=== PATIENT | male | born 1945 | race Caucasian/White ===

== ENCOUNTER 2020-05-21 08:06 | Outpatient (REF) | payer MEDICARE, SELFPAY ==
[2020-05-21 11:22] LABS: Hemoglobin 15.7 g/dl (14.0-18.0); Mean Corpuscular HGB Conc 33.4 g/dl (31.0-36.0); Mean Corpuscular Hemoglobin 30.4 pg (27.0-33.0); Mean Corpuscular Volume 90.9 fL (80-98); Mean Platelet Volume 10.4 fL (9.4-12.4); Platelet Count 198 X10*3/uL (160-400); Red Blood Count 5.17 X10*6/uL (4.60-5.80); Red Cell Distribution Width 12.3 % (11.0-16.0); White Blood Count 5.5 X10*3/uL (4.8-10.8)
[2020-05-21 11:39] LABS: Alanine Aminotransferase 23 U/L (0-40); Albumin Level 4.6 g/dL (3.5-5.0); Alkaline Phosphatase 70 U/L (39-117); Anion Gap 13 (12-20); Aspartate Amino Transferase 19 U/L (5-37); Bilirubin Total 0.4 mg/dL (0.0-1.0); Blood Urea Nitrogen 25 mg/dL (9-16); Calcium 9.3 mg/dL (8.4-10.2); Carbon Dioxide 29 mmol/L (22-29); Chloride 106 mmol/L (96-108); Estimated Glomerular Filt Rate 45; Glucose Fasting 84 mg/dL (60-99); Potassium 4.4 mmol/l (3.3-5.1); Sodium 144 mmol/L (135-145); Total Protein 7.6 g/dL (6.5-8.0)
[2020-05-21 11:53] LABS: Estimated Average Glucose 108 mg/dL; Hemoglobin A1c % 5.4 %
[2020-05-21 12:32] LABS: Creatinine Urine 186.73 mg/dL; Microalbum/Creatinine Ratio Ur 7.4 ug/mg cr
== END 2020-05-21 08:07 | disposition home or self-care (01) ==
LOC: HO.HMGCLDS 08:06
PROVIDERS: PCP Internal Medicine; Visit Provider Internal Medicine
DX: M54.32 Sciatica, left side (principal); E78.2 Mixed hyperlipidemia; E11.9 Type 2 diabetes mellitus without complications
CPT/HCPCS: 36415; 80053; 82043; 83036; 85027

== ENCOUNTER 2020-09-10 10:25 | Emergency (ER) | payer MEDICARE, OTHER, SELFPAY ==
--- NOTE | ~2020-09-10 | XR_ITS ---
EXAMINATION: XR CHEST CLINICAL INFORMATION: Fever COMPARISON: None TECHNIQUE: Frontal view of the chest was obtained. FINDINGS: The cardiac and mediastinal contours are normal. There is increased density over the left heart border questionable for a left base atelectasis or small pneumonia. The lungs are otherwise clear. There is no pleural effusion or pneumothorax. There are degenerative changes of the spine. XR/XR chest 1V IMPRESSION: Question atelectasis or small infiltrate at the left lung base.
[2020-09-10 10:33] VITALS: BP 126/64; PULSE 93; RESP 18; TEMP 36.6; O2SAT 97; BMI 27.5
--- NOTE | 2020-09-10 10:38 | ED.GENADULT ---
HPI - General Adult General Chief complaint: General Medical Stated complaint: fever, body aches Time Seen by Provider: 09/10/20 10:38 Source: patient Mode of arrival: ambulatory Limitations: no limitations History of Present Illness HPI narrative: 74 yo male with CKD, DM, HTN here with fatigue, malaise 1 week ago following his second Moderna vaccine - had a fever of 102 last night and responded to tylenol complaint: fevers, fatigue Onset (ago): week(s) (1) Severity: mild Quality: dull Pain Consistency: constant Relieving factors: none Exacerbating factors: none Associated symptoms: fever/chills and malaise Treatments prior to arrival: none Related Data Home Medications Medication Instructions Recorded Confirmed flu vacc (67yr ml IM 05/24/20 05/24/20 up)-MF59C(PF) 60 mcg(15 mcgx4)/0.5 mL IM syringe omeprazole 20 mg capsule,delayed 20 mg PO DAILY 05/24/20 05/24/20 release pneumoc 13-yogesh conj-dip cr(PF) 0.5 ml IM 05/24/20 05/24/20 mL IM syringe simvastatin 20 mg tablet 20 mg PO BEDTIME 05/24/20 05/24/20 Previous Rx's Medication Instructions Recorded glipizide 2.5 mg tablet, extended 2.5 mg PO DAILY #90 tab 04/10/20 release 24 hr omeprazole 20 mg tablet,delayed 20 mg PO DAILY #90 tab 05/07/20 release lisinopril 10 mg tablet 10 mg PO DAILY #90 tab 05/24/20 blood sugar diagnostic #50 ea 07/22/20 amlodipine 10 mg tablet 10 mg PO DAILY #90 tab 08/05/20 metformin 500 mg tablet 500 mg PO BID #180 tab 08/19/20 doxycycline hyclate 100 mg PO BID 7 Days #14 cap 09/10/20 Allergies Allergy/AdvReac Type Severity Reaction Status Date / Time No Known Allergies Allergy Verified 09/10/20 10:37 [No Known Allergies*] Review of Systems Review of Systems: Constitutional : No Weight loss, pos Fever, pos Chills, pos Fatigue, pos Malaise ENT/Mouth : No sore throat, No Rhinorrhea Eyes: No Eye Pain, No Swelling, No Redness Cardiovascular : No Chest Pain, No SOB, No Dyspnea on Exertion, No Orthopnea, No Edema, No Palpitations Respiratory : No Cough, No Sputum, No Wheezing Gastrointestinal : No Nausea, No Vomiting, No Diarrhea, No Constipation, No abdominal Pain, No Hematochezia, No Melena Genitourinary : No Dysuria, No Urinary Frequency, No Hematuria, pos darkened urine Musculoskeletal : No joint pain, No Myalgias, No Joint Swelling Skin : No Skin Lesions, No rash Neuro : No Weakness, No Numbness, No Dizziness, No Headache Psych : No Anxiety/Panic, No Depression Heme/Lymph: No Bruising, No Bleeding,No Lymphadenopathy Endocrine : No Polyuria, No Polydipsia All other systems reviewed and are negative FOR[facility]LY [facility] Past Medical History Medical History CKD (chronic kidney disease) stage 3, GFR 30-59 ml/min HTN (hypertension) Hyperlipidemia Overweight Renal mass Type 2 diabetes mellitus Surgical History H/O colonoscopy Social History Social History Alcohol intake: current Alcohol intake frequency: a few times a week Smoking Status: Never smoker Use of substances other than those prescribed or required for medical reasons: No Advance Directives: No Advance Directives Information Provided: No Physical Exam Vital Signs: Vital Signs: Last Vital Signs Temp 98.3 F 09/10/20 12:13 Pulse 92 09/10/20 12:13 Resp 18 09/10/20 12:13 BP 131/60 09/10/20 12:13 Pulse Ox 97 09/10/20 12:13 Body Mass Index 27.5 Appearance: Alert. Oriented X3. No acute distress. Eyes: Pupils equal, round and reactive to light. ENT: Pharynx normal. Neck: Normal inspection. Neck supple. CVS: Normal heart rate and rhythm. Pulses normal. Respiratory: No respiratory distress. Breath sounds normal. Abdomen: Soft and nontender. Skin: Skin warm and dry. Normal skin color. Normal skin turgor. Extremities: No lower extremity edema. No calf ttp Neuro: Oriented X 3. No motor deficit. No sensory deficit. Course Course Course Narrative: negative for COVID no hypoxia not toxic will start on doxy and ask patient to follow up with PCP Medical Decision Making MDM Narrative Medical decision making narrative: 74 yo male 1 week out 2nd moderna vaccine here with fatigue, dark urine, fevers 102 - denies tick bites, cough, rash, abdominal pain, n/v/d - at this time labs, cultures, CXR, COVID swab ordered, dispo per results and findings. not toxic Lab Data Result diagrams: 09/10/20 12:22 09/10/20 12:22 Labs: Lab Results 09/10/20 09/10/20 09/10/20 Range/Units 12:21 12:22 12:22 WBC 6.5 (4.8-10.8) X10*3/uL RBC 4.62 (4.60-5.80) X10*6/uL Hgb 13.7 L (14.0-18.0) g/dl Hct 40.5 L (42-52) % MCV 87.7 (80-98) fL MCH 29.7 (27.0-33.0) pg MCHC 33.8 (31.0-36.0) g/dl RDW 12.2 (11.0-16.0) % Plt Count 248 D (160-400) X10*3/uL MPV 9.1 L (9.4-12.4) fL Immature Gran % (Auto) 1.2 H (0.0-0.4) % Neut % (Auto) 78.4 H (45-73) % Lymph % (Auto) 10.7 L (20-40) % Gregory % (Auto) 9.2 (2-11) % Eos % (Auto) 0.2 (0-4) % Baso % (Auto) 0.3 (0-2) % Lymph # (Auto) 0.7 L (1.2-4.9) X10*3/uL Gregory # (Auto) 0.6 (0.1-1.2) X10*3/uL Eos # (Auto) 0.0 (0.0-0.4) X10*3/uL Baso # (Auto) 0.0 (0.0-0.2) X10*3/uL Abs Immat Gran (auto) 0.08 H (0.00-0.03) X10*3/uL Absolute Neuts (auto) 5.1 (2.0-8.3) X10*3/uL Absolute Nucleated RBC 0.000 (0.0-0.012) X10*3/uL Nucleated RBC % (auto) 0.0 (0.0-0.2) /100WBC Hold Blue Top SEE NOTE Sodium (135-145) mmol/L Potassium (3.3-5.1) mmol/L Chloride (96-108) mmol/L Carbon Dioxide (22-29) mmol/L Anion Gap (12-20) BUN (9-16) mg/dL Creatinine (0.5-1.4) mg/dL Estim Creat Clear Calc Estimated GFR Random Glucose (60-115) mg/dL Lactic Acid (0.5-2.0) mmol/L Calcium (8.4-10.2) mg/dL Magnesium (1.6-2.6) mg/dL Ferritin (20-250) ng/mL Total Bilirubin (0.0-1.0) mg/dL Direct Bilirubin (0.0-0.5) mg/dL AST (5-37) U/L ALT (0-40) U/L Alkaline Phosphatase (39-117) U/L Lactate Dehydrogenase (118-273) U/L Total Creatine Kinase (38-174) U/L Total Protein (6.5-8.0) g/dL Albumin (3.5-5.0) g/dL Urine Color Urine Appearance Urine pH (5.0-8.0) Ur Specific [place] (1.005-1.025) Urine Protein (NEG-TRACE) MG/DL Urine Glucose (UA) (NEG) MG/DL Urine Ketones (NEG) MG/DL Urine Blood (NEG) Urine Nitrite (NEG) Ur Leukocyte Esterase (NEG) Coronavirus (PCR) NEGATIVE (Negative) Influenza Type A (PCR) NEGATIVE (Negative) Influenza Type B (PCR) NEGATIVE (Negative) RSV RNA Qual (PCR) NEGATIVE (Negative) 09/10/20 09/10/20 09/10/20 Range/Units 12:22 12:22 12:22 WBC (4.8-10.8) X10*3/uL RBC (4.60-5.80) X10*6/uL Hgb (14.0-18.0) g/dl Hct (42-52) % MCV (80-98) fL MCH (27.0-33.0) pg MCHC (31.0-36.0) g/dl RDW (11.0-16.0) % Plt Count (160-400) X10*3/uL MPV (9.4-12.4) fL Immature Gran % (Auto) (0.0-0.4) % Neut % (Auto) (45-73) % Lymph % (Auto) (20-40) % Gregory % (Auto) (2-11) % Eos % (Auto) (0-4) % Baso % (Auto) (0-2) % Lymph # (Auto) (1.2-4.9) X10*3/uL Gregory # (Auto) (0.1-1.2) X10*3/uL Eos # (Auto) (0.0-0.4) X10*3/uL Baso # (Auto) (0.0-0.2) X10*3/uL Abs Immat Gran (auto) (0.00-0.03) X10*3/uL Absolute Neuts (auto) (2.0-8.3) X10*3/uL Absolute Nucleated RBC (0.0-0.012) X10*3/uL Nucleated RBC % (auto) (0.0-0.2) /100WBC Hold Blue Top Sodium 135 (135-145) mmol/L Potassium 4.2 (3.3-5.1) mmol/L Chloride 100 (96-108) mmol/L Carbon Dioxide 25 (22-29) mmol/L Anion Gap 14 (12-20) BUN 24 H (9-16) mg/dL Creatinine 1.70 H (0.5-1.4) mg/dL Estim Creat Clear Calc 46.9 Estimated GFR 40 Random Glucose 233 H (60-115) mg/dL Lactic Acid 1.6 (0.5-2.0) mmol/L Calcium 8.7 D (8.4-10.2) mg/dL Magnesium 1.9 (1.6-2.6) mg/dL Ferritin 1480 H (20-250) ng/mL Total Bilirubin 0.8 (0.0-1.0) mg/dL Direct Bilirubin 0.4 (0.0-0.5) mg/dL AST 55 H (5-37) U/L ALT 84 H (0-40) U/L Alkaline Phosphatase 117 D (39-117) U/L Lactate Dehydrogenase 107 L (118-273) U/L Total Creatine Kinase 111 (38-174) U/L Total Protein 7.0 (6.5-8.0) g/dL Albumin 3.9 (3.5-5.0) g/dL Urine Color Urine Appearance Urine pH (5.0-8.0) Ur Specific [place] (1.005-1.025) Urine Protein (NEG-TRACE) MG/DL Urine Glucose (UA) (NEG) MG/DL Urine Ketones (NEG) MG/DL Urine Blood (NEG) Urine Nitrite (NEG) Ur Leukocyte Esterase (NEG) Coronavirus (PCR) (Negative) Influenza Type A (PCR) (Negative) Influenza Type B (PCR) (Negative) RSV RNA Qual (PCR) (Negative) 09/10/20 Range/Units 12:22 WBC (4.8-10.8) X10*3/uL RBC (4.60-5.80) X10*6/uL Hgb (14.0-18.0) g/dl Hct (42-52) % MCV (80-98) fL MCH (27.0-33.0) pg MCHC (31.0-36.0) g/dl RDW (11.0-16.0) % Plt Count (160-400) X10*3/uL MPV (9.4-12.4) fL Immature Gran % (Auto) (0.0-0.4) % Neut % (Auto) (45-73) % Lymph % (Auto) (20-40) % Gregory % (Auto) (2-11) % Eos % (Auto) (0-4) % Baso % (Auto) (0-2) % Lymph # (Auto) (1.2-4.9) X10*3/uL Gregory # (Auto) (0.1-1.2) X10*3/uL Eos # (Auto) (0.0-0.4) X10*3/uL Baso # (Auto) (0.0-0.2) X10*3/uL Abs Immat Gran (auto) (0.00-0.03) X10*3/uL Absolute Neuts (auto) (2.0-8.3) X10*3/uL Absolute Nucleated RBC (0.0-0.012) X10*3/uL Nucleated RBC % (auto) (0.0-0.2) /100WBC Hold Blue Top Sodium (135-145) mmol/L Potassium (3.3-5.1) mmol/L Chloride (96-108) mmol/L Carbon Dioxide (22-29) mmol/L Anion Gap (12-20) BUN (9-16) mg/dL Creatinine (0.5-1.4) mg/dL Estim Creat Clear Calc Estimated GFR Random Glucose (60-115) mg/dL Lactic Acid (0.5-2.0) mmol/L Calcium (8.4-10.2) mg/dL Magnesium (1.6-2.6) mg/dL Ferritin (20-250) ng/mL Total Bilirubin (0.0-1.0) mg/dL Direct Bilirubin (0.0-0.5) mg/dL AST (5-37) U/L ALT (0-40) U/L Alkaline Phosphatase (39-117) U/L Lactate Dehydrogenase (118-273) U/L Total Creatine Kinase (38-174) U/L Total Protein (6.5-8.0) g/dL Albumin (3.5-5.0) g/dL Urine Color YELLOW Urine Appearance CLEAR Urine pH 5.5 (5.0-8.0) Ur Specific [place] 1.025 (1.005-1.025) Urine Protein TRACE (NEG-TRACE) MG/DL Urine Glucose (UA) NEG (NEG) MG/DL Urine Ketones NEG (NEG) MG/DL Urine Blood NEG (NEG) Urine Nitrite NEG (NEG) Ur Leukocyte Esterase NEG (NEG) Coronavirus (PCR) (Negative) Influenza Type A (PCR) (Negative) Influenza Type B (PCR) (Negative) RSV RNA Qual (PCR) (Negative) Discharge Plan Discharge Clinical Impression: CKD (chronic kidney disease) stage 3, GFR 30-59 ml/min Qualifiers: Chronic kidney disease stage 3 subtype: unspecified whether 3a or 3b Qualified Code(s): N18.30 - Chronic kidney disease, stage 3 unspecified Pneumonia Qualifiers: Pneumonia type: due to unspecified organism Laterality: left Lung location: lower lobe of lung Qualified Code(s): J18.9 - Pneumonia, unspecified organism Patient Disposition: Home, Self-Care Instructions: Pneumonia (ED) Additional Instructions: return to ED for any worsening symptoms or concerns YOU SHOULD HAVE YOUR KIDNEY FUNCTION RECHECKED IN 2 DAYS Prescriptions: New doxycycline hyclate 100 mg capsule 100 mg PO BID 7 Days Qty: 14 RF: 0 No Action glipizide 2.5 mg tablet extended release 24hr 2.5 mg PO DAILY Qty: 90 RF: 2 omeprazole 20 mg tablet,delayed release (DR/EC) 20 mg PO DAILY Qty: 90 RF: 3 lisinopril 10 mg tablet 10 mg PO DAILY Qty: 90 RF: 3 (DME) Accu-Chek Maris Plus test strp Strip See Rx Instructions .ROUTE .MEDSUPPLY Qty: 50 RF: 2 amlodipine 10 mg tablet 10 mg PO DAILY Qty: 90 RF: 3 metformin 500 mg tablet 500 mg PO BID Qty: 180 RF: 3 simvastatin 20 mg tablet 20 mg PO BEDTIME RF: 0 omeprazole 20 mg capsule,delayed release(DR/EC) 20 mg PO DAILY RF: 0 Fluad Quad 2020-21(65y up)(PF) 60 mcg (15 mcg x 4)/0.5 mL syringe IM RF: 0 Prevnar 13 (PF) 0.5 mL syringe IM RF: 0 Referrals: Renetta Rangel MD [Primary Care Provider] - 2 days
[2020-09-10 12:13] VITALS: BP 131/60; PULSE 92; RESP 18; TEMP 36.8; O2SAT 97
[2020-09-10 12:29] LABS: MANUAL DIFF FLAG NO
[2020-09-10 12:33] LABS: Basophils Percent Auto 0.3 % (0-2); Eosinophils Percent Auto 0.2 % (0-4); Hematocrit 40.5 % (42-52); Hemoglobin 13.7 g/dl (14.0-18.0); Imm Gran Abs Auto 0.08 X10*3/uL (0.00-0.03); Imm Gran Pct Auto 1.2 % (0.0-0.4); Lymphocytes Absolute Auto 0.7 X10*3/uL (1.2-4.9); Lymphocytes Percent Auto 10.7 % (20-40); Mean Corpuscular HGB Conc 33.8 g/dl (31.0-36.0); Mean Corpuscular Hemoglobin 29.7 pg (27.0-33.0); Mean Corpuscular Volume 87.7 fL (80-98); Mean Platelet Volume 9.1 fL (9.4-12.4); Monocytes Absolute Auto 0.6 X10*3/uL (0.1-1.2); Monocytes Percent Auto 9.2 % (2-11); Neutrophils Absolute Auto 5.1 X10*3/uL (2.0-8.3); Neutrophils Percent Auto 78.4 % (45-73); Platelet Count 248 X10*3/uL (160-400); Red Blood Count 4.62 X10*6/uL (4.60-5.80); Red Cell Distribution Width 12.2 % (11.0-16.0); White Blood Count 6.5 X10*3/uL (4.8-10.8)
[2020-09-10] MEDS: cefTRIAXone sodium 1 GM in 0.9 % Sodium Chloride 50 ML IV (12:46)
[2020-09-10 12:56] LABS: Glucose Urine UA NEG (NEG); Leukocyte Esterase Urine NEG (NEG); Nitrite Urine NEG (NEG); PH 5.5 (5.0-8.0); Specific Gravity - Urine 1.025 (1.005-1.025); Urine Blood NEG (NEG); Urine Ketones NEG (NEG); Urine Protein TRACE MG/DL (NEG-TRACE)
[2020-09-10 12:59] LABS: Alanine Aminotransferase 84 U/L (0-40); Albumin Level 3.9 g/dL (3.5-5.0); Alkaline Phosphatase 117 U/L (39-117); Anion Gap 14 (12-20); Appearance Urine CLEAR; Aspartate Amino Transferase 55 U/L (5-37); Bilirubin Direct 0.4 mg/dL (0.0-0.5); Bilirubin Total 0.8 mg/dL (0.0-1.0); Blood Urea Nitrogen 24 mg/dL (9-16); Calcium 8.7 mg/dL (8.4-10.2); Carbon Dioxide 25 mmol/L (22-29); Chloride 100 mmol/L (96-108); Color Urine YELLOW; Creatinine Clr Calc Pharmacy 46.9; Estimated Glomerular Filt Rate 40; Glucose Random 233 mg/dL (60-115); Lactate Dehydrogenase 107 U/L (118-273); Magnesium 1.9 mg/dL (1.6-2.6); Potassium 4.2 mmol/L (3.3-5.1); Sodium 135 mmol/L (135-145)
[2020-09-10 13:06] LABS: Lactic Acid 1.6 mmol/L (0.5-2.0)
[2020-09-10] MEDS: 0.9 % Sodium Chloride 500 ML IV (13:36)
[2020-09-10 13:46] LABS: Ferritin 1480 ng/mL (20-250)
[2020-09-10 14:03] LABS: Influenza A PCR NEGATIVE (Negative); Influenza B PCR NEGATIVE (Negative); Resp Syncy Virus RNA Qual PCR NEGATIVE (Negative); SARS COV2 PCR INHOUSE NEGATIVE (Negative)
[2020-09-12 17:26] LABS: Lyme Abs Screen <0.90 index
== END 2020-09-10 15:07 | disposition home or self-care (01) ==
PROVIDERS: Emergency Provider Emergency Medicine; PCP Internal Medicine
DX: J18.9 Pneumonia, unspecified organism (principal); E11.22 Type 2 diabetes mellitus with diabetic chronic kidney disease; I12.9 Hypertensive chronic kidney disease with stage 1 through stage 4 chronic kidney disease, or unspecified chronic kidney disease; N18.30 Chronic kidney disease, stage 3 unspecified; Z20.822 Contact with and (suspected) exposure to COVID-19; E78.5 Hyperlipidemia, unspecified; Z87.01 Personal history of pneumonia (recurrent)
CPT/HCPCS: 0241U; 36415; 71045; 80048; 80076; 81003; 82550; 82728; 83605; 83615; 83735; 85025; 86617; 86618; 87040; 87147; 87205; 96361; 96365; 99284; J0696

== ENCOUNTER 2020-09-13 07:56 | Outpatient (REF) | payer MEDICARE, OTHER, SELFPAY ==
[2020-09-13 11:55] LABS: Anion Gap 16 (12-20); Blood Urea Nitrogen 26 mg/dL (9-16); Calcium 8.8 mg/dL (8.4-10.2); Carbon Dioxide 24 mmol/L (22-29); Chloride 105 mmol/L (96-108); Cholesterol 120 mg/dL; Estimated Glomerular Filt Rate 48; Glucose Fasting 121 mg/dL (60-99); HDL Cholesterol 28 mg/dL; LDL Cholesterol Calculated 69 mg/dl; Potassium 4.6 mmol/L (3.3-5.1); Sodium 140 mmol/L (135-145); Triglycerides 118 mg/dL
[2020-09-13 11:59] LABS: Estimated Average Glucose 128 mg/dL; Hemoglobin A1c % 6.1 %
== END 2020-09-13 07:57 | disposition home or self-care (01) ==
LOC: HO.HMGCLDS 07:56
PROVIDERS: Visit Provider Internal Medicine
DX: I12.9 Hypertensive chronic kidney disease with stage 1 through stage 4 chronic kidney disease, or unspecified chronic kidney disease (principal); N18.30 Chronic kidney disease, stage 3 unspecified; E11.22 Type 2 diabetes mellitus with diabetic chronic kidney disease; N28.89 Other specified disorders of kidney and ureter
CPT/HCPCS: 36415; 80048; 80061; 83036

== ENCOUNTER 2021-01-06 10:05 | Outpatient (REF) | payer MEDICARE, OTHER, SELFPAY ==
[2021-01-06 11:29] LABS: Glucose Urine UA NEG (NEG); Leukocyte Esterase Urine NEG (NEG); Nitrite Urine NEG (NEG); PH 5.5 (5.0-8.0); Specific Gravity - Urine 1.025 (1.005-1.025); Urine Blood NEG (NEG); Urine Ketones NEG (NEG); Urine Protein NEG (NEG-TRACE)
[2021-01-06 11:38] LABS: Appearance Urine CLEAR; Color Urine YELLOW
[2021-01-06 11:44] LABS: Alanine Aminotransferase 19 U/L (0-40); Albumin Level 4.3 g/dL (3.5-5.0); Alkaline Phosphatase 64 U/L (39-117); Anion Gap 16 (12-20); Aspartate Amino Transferase 20 U/L (5-37); Bilirubin Total 0.6 mg/dL (0.0-1.0); Blood Urea Nitrogen 23 mg/dL (9-16); Calcium 9.6 mg/dL (8.4-10.2); Carbon Dioxide 24 mmol/L (22-29); Chloride 106 mmol/L (96-108); Estimated Glomerular Filt Rate 48; Glucose Fasting 135 mg/dL (60-99); Potassium 4.5 mmol/L (3.3-5.1); Sodium 141 mmol/L (135-145); Total Protein 7.2 g/dL (6.5-8.0)
[2021-01-06 11:53] LABS: Estimated Average Glucose 134 mg/dL; Hemoglobin A1c % 6.3 %
[2021-01-06 11:55] LABS: Hematocrit 43.7 % (42-52); Hemoglobin 14.8 g/dl (14.0-18.0); Mean Corpuscular HGB Conc 33.9 g/dl (31.0-36.0); Mean Corpuscular Hemoglobin 29.8 pg (27.0-33.0); Mean Corpuscular Volume 88.1 fL (80-98); Mean Platelet Volume 9.6 fL (9.4-12.4); Platelet Count 171 X10*3/uL (160-400); Red Blood Count 4.96 X10*6/uL (4.60-5.80); Red Cell Distribution Width 12.7 % (11.0-16.0); White Blood Count 5.8 X10*3/uL (4.8-10.8)
[2021-01-06 12:54] LABS: Mucus Urine 1+ /LPF; RBC Urine 0 /HPF (0); WBC Urine 0 /HPF (0-4)
[2021-01-06 12:58] LABS: Creatinine Urine 122.76 mg/dL; Microalbum/Creatinine Ratio Ur 7.3 ug/mg cr
== END 2021-01-06 10:06 | disposition home or self-care (01) ==
LOC: HO.HMGCLDS 10:05
PROVIDERS: PCP Internal Medicine; Visit Provider Internal Medicine
DX: I12.9 Hypertensive chronic kidney disease with stage 1 through stage 4 chronic kidney disease, or unspecified chronic kidney disease (principal); N18.30 Chronic kidney disease, stage 3 unspecified; E11.22 Type 2 diabetes mellitus with diabetic chronic kidney disease
CPT/HCPCS: 36415; 80053; 81001; 82043; 83036; 85027

== ENCOUNTER 2021-05-12 08:09 | Outpatient (REF) | payer MEDICARE, OTHER, SELFPAY ==
[2021-05-12 11:48] LABS: Hematocrit 43.4 % (42.0-52.0); Hemoglobin 14.7 g/dl (14.0-18.0); Mean Corpuscular HGB Conc 33.9 g/dl (31.0-36.0); Mean Corpuscular Hemoglobin 29.9 pg (27.0-33.0); Mean Corpuscular Volume 88.2 fL (80.0-98.0); Mean Platelet Volume 9.8 fL (9.4-12.4); Platelet Count 197 X10*3/uL (160-400); Red Blood Count 4.92 X10*6/uL (4.60-5.80); Red Cell Distribution Width 12.7 % (11.0-16.0); White Blood Count 5.9 X10*3/uL (4.8-10.8)
[2021-05-12 12:05] LABS: Estimated Average Glucose 131 mg/dL; Hemoglobin A1c % 6.2 %
[2021-05-12 12:09] LABS: Alanine Aminotransferase 26 U/L (0-40); Albumin Level 4.4 g/dL (3.5-5.0); Alkaline Phosphatase 61 U/L (39-117); Anion Gap 15 (12-20); Aspartate Amino Transferase 33 U/L (5-37); Bilirubin Total 0.7 mg/dL (0.0-1.0); Blood Urea Nitrogen 31 mg/dL (9-16); Calcium 9.5 mg/dL (8.4-10.2); Carbon Dioxide 23 mmol/L (22-29); Chloride 108 mmol/L (96-108); Cholesterol 169 mg/dL; Estimated Glomerular Filt Rate 35; Glucose Fasting 135 mg/dL (60-99); HDL Cholesterol 46 mg/dL; LDL Cholesterol Calculated 97 mg/dl; Potassium 4.5 mmol/L (3.3-5.1); Sodium 141 mmol/L (135-145); Total Protein 7.2 g/dL (6.5-8.0); Triglycerides 131 mg/dL
[2021-05-12 12:15] LABS: Creatinine Urine 198.58 mg/dL
== END 2021-05-12 08:10 | disposition home or self-care (01) ==
LOC: HO.HMGCLDS 08:09
PROVIDERS: PCP Internal Medicine; Visit Provider Internal Medicine
DX: I12.9 Hypertensive chronic kidney disease with stage 1 through stage 4 chronic kidney disease, or unspecified chronic kidney disease (principal); N18.30 Chronic kidney disease, stage 3 unspecified; E11.22 Type 2 diabetes mellitus with diabetic chronic kidney disease; N28.89 Other specified disorders of kidney and ureter
CPT/HCPCS: 36415; 80053; 80061; 82043; 83036; 85027

== ENCOUNTER 2021-05-23 11:22 | Outpatient (REF) | payer MEDICARE, OTHER, SELFPAY ==
[2021-05-23 14:37] LABS: Anion Gap 13 (12-20); Blood Urea Nitrogen 24 mg/dL (9-16); Calcium 9.6 mg/dL (8.4-10.2); Carbon Dioxide 27 mmol/L (22-29); Chloride 103 mmol/L (96-108); Estimated Glomerular Filt Rate 45; Glucose Random 108 mg/dL (60-115); Potassium 4.6 mmol/L (3.3-5.1); Sodium 138 mmol/L (135-145)
== END 2021-05-23 11:23 | disposition home or self-care (01) ==
LOC: HO.HMGCLDS 11:22
PROVIDERS: PCP Internal Medicine; Visit Provider Internal Medicine
DX: E78.5 Hyperlipidemia, unspecified (principal); I12.9 Hypertensive chronic kidney disease with stage 1 through stage 4 chronic kidney disease, or unspecified chronic kidney disease; N18.30 Chronic kidney disease, stage 3 unspecified; E11.22 Type 2 diabetes mellitus with diabetic chronic kidney disease
CPT/HCPCS: 36415; 80048

== ENCOUNTER 2022-01-06 08:04 | Outpatient (REF) | payer MEDICARE, OTHER, SELFPAY ==
[2022-01-06 11:37] LABS: Estimated Average Glucose 128 mg/dL; Hemoglobin A1c % 6.1 %
[2022-01-06 12:09] LABS: Alanine Aminotransferase 18 U/L (0-40); Albumin Level 4.2 g/dL (3.5-5.0); Alkaline Phosphatase 59 U/L (39-117); Anion Gap 15 (12-20); Aspartate Amino Transferase 21 U/L (5-37); Bilirubin Total 0.8 mg/dL (0.0-1.0); Blood Urea Nitrogen 26 mg/dL (9-16); Calcium 9.1 mg/dL (8.4-10.2); Carbon Dioxide 25 mmol/L (22-29); Chloride 103 mmol/L (96-108); Cholesterol 150 mg/dL; Estimated Glomerular Filt Rate 44; Glucose Fasting 145 mg/dL (60-99); HDL Cholesterol 47 mg/dL; LDL Cholesterol Calculated 87 mg/dl; Potassium 4.6 mmol/L (3.3-5.1); Sodium 138 mmol/L (135-145); Total Protein 6.8 g/dL (6.5-8.0); Triglycerides 82 mg/dL
[2022-01-06 12:22] LABS: Creatinine Urine 92.07 mg/dL; Microalbum/Creatinine Ratio Ur 11.9 ug/mg cr
== END 2022-01-06 08:05 | disposition home or self-care (01) ==
LOC: HO.HMGCLDS 08:04
PROVIDERS: PCP Internal Medicine; Visit Provider Internal Medicine
DX: I12.9 Hypertensive chronic kidney disease with stage 1 through stage 4 chronic kidney disease, or unspecified chronic kidney disease (principal); N18.30 Chronic kidney disease, stage 3 unspecified; E11.22 Type 2 diabetes mellitus with diabetic chronic kidney disease; E78.5 Hyperlipidemia, unspecified
CPT/HCPCS: 36415; 80053; 80061; 82043; 83036

== ENCOUNTER 2022-06-11 10:54 | Outpatient (REF) | payer MEDICARE, OTHER, SELFPAY ==
[2022-06-11 14:38] LABS: Estimated Average Glucose 143 mg/dL; Hemoglobin A1c % 6.6 %
[2022-06-11 14:45] LABS: Alanine Aminotransferase 19 U/L (0-40); Albumin Level 4.3 g/dL (3.5-5.0); Alkaline Phosphatase 78 U/L (39-117); Anion Gap 14 (12-20); Aspartate Amino Transferase 18 U/L (5-37); Bilirubin Total 0.7 mg/dL (0.0-1.0); Blood Urea Nitrogen 29 mg/dL (9-16); Calcium 9.4 mg/dL (8.4-10.2); Carbon Dioxide 26 mmol/L (22-29); Chloride 104 mmol/L (96-108); Cholesterol 159 mg/dL; Estimated Glomerular Filt Rate 39; Glucose Fasting 123 mg/dL (60-99); HDL Cholesterol 45 mg/dL; LDL Cholesterol Calculated 95 mg/dl; Potassium 4.7 mmol/L (3.3-5.1); Sodium 139 mmol/L (135-145); Triglycerides 99 mg/dL
[2022-06-11 14:51] LABS: PSA,Total (Free>4and<10) 1.17 ng/mL (0.00-4.00)
[2022-06-11 15:04] LABS: Creatinine Urine 128.34 mg/dL
== END 2022-06-11 10:55 | disposition home or self-care (01) ==
LOC: HO.HMGCLDS 10:54
PROVIDERS: PCP Internal Medicine; Visit Provider Internal Medicine
DX: E78.5 Hyperlipidemia, unspecified (principal); I12.9 Hypertensive chronic kidney disease with stage 1 through stage 4 chronic kidney disease, or unspecified chronic kidney disease; E11.22 Type 2 diabetes mellitus with diabetic chronic kidney disease; N18.30 Chronic kidney disease, stage 3 unspecified; Z12.5 Encounter for screening for malignant neoplasm of prostate
CPT/HCPCS: 36415; 80053; 80061; 82043; 83036; 84153

== ENCOUNTER 2022-09-08 09:14 | Outpatient (REF) | payer MEDICARE, OTHER, SELFPAY ==
[2022-09-08 11:39] LABS: MANUAL DIFF FLAG NO
[2022-09-08 11:55] LABS: Basophils Percent Auto 0.6 % (0-2); Eosinophils Absolute Auto 0.1 X10*3/uL (0.0-0.4); Hematocrit 46.2 % (42.0-52.0); Hemoglobin 15.7 g/dl (14.0-18.0); Imm Gran Abs Auto 0.03 X10*3/uL (0.00-0.03); Imm Gran Pct Auto 0.5 % (0.0-0.4); Lymphocytes Absolute Auto 1.4 X10*3/uL (1.2-4.9); Lymphocytes Percent Auto 22.9 % (20-40); Mean Corpuscular Hemoglobin 30.3 pg (27.0-33.0); Mean Corpuscular Volume 89.2 fL (80.0-98.0); Mean Platelet Volume 10.3 fL (9.4-12.4); Monocytes Absolute Auto 0.5 X10*3/uL (0.1-1.2); Monocytes Percent Auto 8.1 % (2-11); Neutrophils Absolute Auto 4.2 x10*3/uL (2.0-8.3); Neutrophils Percent Auto 66.9 % (45-73); Platelet Count 194 X10*3/uL (160-400); Red Blood Count 5.18 X10*6/uL (4.60-5.80); Red Cell Distribution Width 12.4 % (11.0-16.0); White Blood Count 6.3 X10*3/uL (4.8-10.8)
[2022-09-08 12:16] LABS: Alanine Aminotransferase 18 U/L (0-40); Albumin Level 4.3 g/dL (3.5-5.0); Alkaline Phosphatase 75 U/L (39-117); Anion Gap 13 (12-20); Aspartate Amino Transferase 16 U/L (5-37); Bilirubin Total 1.2 mg/dL (0.0-1.0); Blood Urea Nitrogen 25 mg/dL (9-16); Calcium 9.3 mg/dL (8.4-10.2); Carbon Dioxide 26 mmol/L (22-29); Chloride 104 mmol/L (96-108); Cholesterol 168 mg/dL; Estimated Glomerular Filt Rate 43; Glucose Fasting 141 mg/dL (60-99); HDL Cholesterol 44 mg/dL; LDL Cholesterol Calculated 104 mg/dl; Potassium 4.1 mmol/L (3.3-5.1); Sodium 139 mmol/L (135-145); Total Protein 6.9 g/dL (6.5-8.0); Triglycerides 103 mg/dL
[2022-09-08 12:17] LABS: Estimated Average Glucose 157 mg/dL; Hemoglobin A1c % 7.1 %
[2022-09-08 12:35] LABS: Creatinine Urine 140.39 mg/dL; Microalbum/Creatinine Ratio Ur 19.2 ug/mg cr
== END 2022-09-08 09:15 | disposition home or self-care (01) ==
LOC: HO.HMGCLDS 09:14
PROVIDERS: PCP Internal Medicine; Referring Provider Internal Medicine Nephrology; Visit Provider Internal Medicine
DX: E78.5 Hyperlipidemia, unspecified (principal); E11.22 Type 2 diabetes mellitus with diabetic chronic kidney disease; I12.9 Hypertensive chronic kidney disease with stage 1 through stage 4 chronic kidney disease, or unspecified chronic kidney disease; N18.30 Chronic kidney disease, stage 3 unspecified
CPT/HCPCS: 36415; 80053; 80061; 82043; 83036; 85025

== ENCOUNTER 2022-09-21 10:12 | Outpatient (REF) | payer MEDICARE, OTHER, SELFPAY ==
[2022-09-21 12:15] LABS: Anion Gap 14 (12-20); Blood Urea Nitrogen 25 mg/dL (9-16); Calcium 9.3 mg/dL (8.4-10.2); Carbon Dioxide 24 mmol/L (22-29); Chloride 108 mmol/L (96-108); Estimated Glomerular Filt Rate 41; Glucose Random 213 mg/dL (60-115); Magnesium 1.8 mg/dL (1.6-2.6); Potassium 4.5 mmol/L (3.3-5.1); Sodium 141 mmol/L (135-145)
== END 2022-09-21 10:13 | disposition home or self-care (01) ==
LOC: HO.HMGCLDS 10:12
PROVIDERS: PCP Internal Medicine; Visit Provider Internal Medicine
DX: I49.9 Cardiac arrhythmia, unspecified (principal); I10 Essential (primary) hypertension
CPT/HCPCS: 36415; 80048; 83735

== ENCOUNTER → 2022-10-08 07:50 | Outpatient (REF) | payer MEDICARE, OTHER, SELFPAY ==
--- NOTE | 2022-10-08 07:55 | HM_ITS ---
Conclusion: 1. Patient was monitored for total period of 2 days 2. Baseline was normal sinus rhythm with average heart of 75 beats per minute 3. No significant pauses or bradycardia noted 4. Total of 48,945 PVCs accounting for 22.5% of total beats account for very frequent PVCs 5. Total of 2 wide complex runs, longest 5 beats at about 112 beats per minute suggestive excellent idioventricular rhythm 6. Occasional PACs noted 7. No patient reported events MTDD
--- NOTE | 2022-10-08 07:55 | CA_ITS ---
Transthoracic Echocardiogram Patient (Last, First, Middle): Kevin Lindo, Gender: Male Date of : 1945 Age: 77 Procedure Date: 10/08/2022 Procedure Type: Transthoracic Echocardiogram Location: OP Height: 190.5 cm Weight: 102.06 kg BSA: 2.31 m2 Heart Rate: bpm BP: 115 / 62 mmHg Pulp Grinder: TO Referring MD: Renetta Rangel MD Epic Director: Wilian Ambrose MD Symptoms: I49.9 - Cardiac arrhythmia, unspecified Study Quality: Technically Difficult, contrast ECG Rhythm: normal sinus rhythm with frequent PVCs Conclusions: - 1. Technically limited study 2. Normal LV systolic function with impaired relaxation filling pattern 2. Mildly dilated left atrium 3. Normal cardiac valvular Dopplers 4. Normal RV systolic pressure 5. No gross pericardial effusion Findings Procedure Information Contrast agent, definity, is being given per protocol without apparent complications. Left Ventricle Normal left ventricular size, thickness, and systolic function. The visually estimated ejection fraction is between 55-60%. Spectral Doppler is indicative of an impaired relaxation filling pattern. Right Ventricle Mildly increased right ventricular cavity size. There is normal right ventricular systolic function. Atria The left atrium is mildly dilated. Interatrial shunt cannot be excluded. The right atrium was not well visualized. Aortic Valve There is mild calcification of the aortic valve. There is mild thickening of the aortic valve. There is no aortic valve stenosis. There is no aortic valve regurgitation. Mitral Valve There is moderate anterior and mild posterior mitral leaflet thickening. There is trace mitral valve regurgitation. There is no mitral valve stenosis. Pulmonic Valve The pulmonic valve was not well visualized. Tricuspid Valve Likely normal tricuspid valve structure and function. There is trace tricuspid valve regurgitation. The right ventricular systolic pressure is normal. The right ventricular systolic pressure is 17 mmHg. Normal right atrial pressure. There is no evidence of pulmonary hypertension. Great Vessels All visible segments of the aorta are normal in size. The pulmonary artery was not well visualized. Venous The inferior vena cava is normal in size and collapses greater than 50% with inspiration. Pericardium/Pleural There is no evidence of pericardial effusion. Prior Study Comparison No prior study available for comparison. Measurements 2D Linear Measurements IVSd: 1.08 0.6-0.9/0.6-1.0 cm LVIDd: 5.03 3.9-5.3/4.2-5.9 cm LVIDd Index: 2.18 2.4-3.2/2.2-3.1 cm/m2 LVIDs: 3.88 2.0-3.6 cm LVPWd: 0.80 0.7-1.1 cm LA Diam: 3.40 2.7-3.8/3.0-4.0 cm LAIDs Index: 1.47 1.5-2.3 cm/m2 LV Mass: 210.49 67-162/88-224 g LV Mass Index: 91.12 43-95/49-115 g/m2 LVOT Diam: 2.50 3.0+(-)1.3 cm 2D Systolic Function EF 4C: 58.60 >55% Mitral Valve MV Pk E: 0.42 MV PK A: 0.54 MV Decel Time: 269.00 E/A: 0.80 E'Medial: 5.87 E/E' Med: 7.10 PHT: 79.00 MVA PHT: 2.78 Decel [place]: 1.54 LVOT LVOT Pk Chris: 0.79 LVOT Mn Chris: 0.51 LVOT VTI: 0.21 LVOT Pk Grad: 2.00 LVOT Mn Grad: 1.00 LVOT Diam: 2.50 LVOT Area: 4.91 Diastolic Function MV Pk E: 0.42 MV Pk A: 0.54 E/A: 0.80 E'Medial: 5.87 E/E' Med: 7.10 Right Ventricle TAPSE (mm): 23.90 TVS' Chris: 13.10 Tricuspid Valve TR Pk Chris: 1.85 TR Pk Grad: 14.00 RA Press: 3.00 RVSP: 17.00 Great Vessels Aorta Sinus of Valsalva: 4.24 2.0-3.[address] [place]: 2.54 1.7-3.4 cm Ao Asc: 3.40 2.1-3.4 cm Updated in Other Vendor System with Status of Final Wilian Ambrose MD electronically signed on 10/09/2022 3:38:04 PM with status of Final
== END ==
LOC: HO.CARD 07:50
PROVIDERS: PCP Internal Medicine; Visit Provider Internal Medicine
DX: I49.9 Cardiac arrhythmia, unspecified (principal); I47.1 Supraventricular tachycardia
CPT/HCPCS: 93225; 93306; Q9957

== ENCOUNTER 2023-01-11 07:48 | Outpatient (REF) | payer MEDICARE, OTHER, SELFPAY ==
[2023-01-11 11:30] LABS: MANUAL DIFF FLAG NO
[2023-01-11 12:04] LABS: Basophils Percent Auto 0.5 % (0-2); Eosinophils Absolute Auto 0.1 X10*3/uL (0.0-0.4); Hematocrit 47.9 % (42.0-52.0); Hemoglobin 16.4 g/dl (14.0-18.0); Imm Gran Abs Auto 0.03 X10*3/uL (0.00-0.03); Imm Gran Pct Auto 0.5 % (0.0-0.4); Lymphocytes Absolute Auto 1.6 X10*3/uL (1.2-4.9); Lymphocytes Percent Auto 27.6 % (20-40); Mean Corpuscular HGB Conc 34.2 g/dl (31.0-36.0); Mean Corpuscular Hemoglobin 30.4 pg (27.0-33.0); Mean Corpuscular Volume 88.9 fL (80.0-98.0); Mean Platelet Volume 10.4 fL (9.4-12.4); Monocytes Absolute Auto 0.5 X10*3/uL (0.1-1.2); Monocytes Percent Auto 8.9 % (2-11); Neutrophils Absolute Auto 3.4 x10*3/uL (2.0-8.3); Neutrophils Percent Auto 60.5 % (45-73); Platelet Count 149 X10*3/uL (160-400); Red Blood Count 5.39 X10*6/uL (4.60-5.80); White Blood Count 5.6 X10*3/uL (4.8-10.8)
[2023-01-11 12:09] LABS: Estimated Average Glucose 131 mg/dL; Hemoglobin A1c % 6.2 %
[2023-01-11 12:30] LABS: Alanine Aminotransferase 24 U/L (0-40); Albumin Level 4.2 g/dL (3.5-5.0); Alkaline Phosphatase 72 U/L (39-117); Anion Gap 16 (12-20); Aspartate Amino Transferase 22 U/L (5-37); Bilirubin Total 0.7 mg/dL (0.0-1.0); Blood Urea Nitrogen 27 mg/dL (9-16); Calcium 9.5 mg/dL (8.4-10.2); Carbon Dioxide 22 mmol/L (22-29); Chloride 105 mmol/L (96-108); Cholesterol 140 mg/dL; Estimated Glomerular Filt Rate 42; Glucose Fasting 138 mg/dL (60-99); HDL Cholesterol 40 mg/dL; LDL Cholesterol Calculated 80 mg/dl; Potassium 4.2 mmol/L (3.3-5.1); Sodium 139 mmol/L (135-145); Total Protein 7.3 g/dL (6.5-8.0); Triglycerides 104 mg/dL
[2023-01-11 12:44] LABS: Creatinine Urine 110.47 mg/dL; Microalbum/Creatinine Ratio Ur 8.1 ug/mg cr
== END 2023-01-11 07:49 | disposition home or self-care (01) ==
LOC: HO.HMGCLDS 07:48
PROVIDERS: PCP Internal Medicine; Visit Provider Internal Medicine
DX: I12.9 Hypertensive chronic kidney disease with stage 1 through stage 4 chronic kidney disease, or unspecified chronic kidney disease (principal); E11.22 Type 2 diabetes mellitus with diabetic chronic kidney disease; N18.30 Chronic kidney disease, stage 3 unspecified; E78.5 Hyperlipidemia, unspecified
CPT/HCPCS: 36415; 80053; 80061; 82043; 83036; 85025

== ENCOUNTER 2023-01-13 08:58 | Outpatient (AMB) | payer MEDICARE, OTHER, SELFPAY ==
[2023-01-13 09:04] VITALS: BP 120/72; PULSE 71; O2SAT 100; BMI 27.2
--- NOTE | 2023-01-13 09:04 | A.OFFVIS_ITS ---
Intake Vital Signs 01/13/23 09:04 Height 6 ft 3 in Weight 218 lb BMI 27.2 BP 120/72 Blood Pressure Location Lt brachial Position Sitting Pulse 71 Pulse Source Pulse Oximeter Pulse Oximetry (%) 100 Oxygen Delivery Method Room Air Intake Visit Reasons: [facility] G0439 Intake Note: Pt is here today for AWV. Allergies No Known Allergies [No Known Allergies*] Allergy (Verified 01/13/23 09:10) Medication List - Last Reconciled 01/13/23 by Renetta Rangel MD amlodipine 10 mg PO DAILY atorvastatin 20 mg PO DAILY blood sugar diagnostic (Accu-Chek Maris Plus test strips) use one strip once a day to test blood sugar dapagliflozin propanediol (Farxiga) 10 mg PO DAILY flu vac 2020 [id number](PF) 60 mcg (15 mcg x 4)/0.5 mL mL IM lancets (Accu-Chek Fastclix Lancet Drum) use to test blood sugar once a day lisinopril 10 mg PO DAILY metformin 500 mg PO DAILY omeprazole 20 mg PO DAILY pneumoc 13-yogesh conj-dip cr(PF) mL IM HPI [facility] G0439 HPI Details Pt presents for annualInitiated the conversation about Advanced Directives. Advanced Directives help? patients prepare for current and future decisions about their medical treatment? and place of care. Discussed with patient that it is a process where a patients? current condition and prognosis are reviewed, their wishes for information? regarding their illness are elicited, and likely medical dilemmas are presented? and options discussed. The form can be amended as needed, reviewed yearly and? make changes as needed IPPE/AWV ? year old presents? for her ? Annual? Wellness Visit, initial visit.? Medical / Social History Reviewed? Past Medical History ?Yes? . ? [place]? of Care / Care Team list updated ?Yes . ? Surgical/Hospitalization? History ?Yes . ? Current Medications? (including OTC and supplements) ?Yes . ? Family History ?Yes? . ? Tobacco? Control form ?Yes . ? AUDIT-C (Alcohol use) form? ?Yes . ? Illicit drug use in Social? History ?Yes . ? Current diagnosis of? depression? ?No ? Appropriate PHQ2/PHQ9? completed ?Yes . ? Data entered by ?Medical? Preschool Assistant and reviewed by provider ? Fall Risk ? Fall? History? Have you had any falls with? injury in the past year? ?No . ? Have you had two or more? falls in the past year? ?No . ? Fall Risk Assessment: ?No? falls in the past year . ? HRA filled out by? the patient, reviewed by Provider and scanned. ? IPPE/AWV ? Balance? [place]? ?Yes . ? Tandem? walk ?Yes . ? Walk and? Turn ?Yes . ? Rise from? sit to stand ?Yes . ?Vision? Corrective? lens ?Yes ? Vision? screen ? Up-to-date, has an appointment [] for vision? screening and glaucoma screening ?Hearing? Whshin? test ?pass .? Initiated the conversation about Advanced Directives. Advanced Directives help? patients prepare for current and future decisions about their medical treatment? and place of care. Discussed with patient that it is a process where a patients? current condition and prognosis are reviewed, their wishes for information? regarding their illness are elicited, and likely medical dilemmas are presented? and options discussed. The form can be amended as needed, revie wed yearly and? make changes as needed Written? Plan?Completed. See Patient? Documents. [facility], [facility] Medical History Annual physical exam CKD (chronic kidney disease) stage 3, GFR 30-59 ml/min HTN (hypertension) Hyperlipidemia Lumbar disc disease Overweight Pneumonia Renal mass Type 2 diabetes mellitus Surgical History H/O colonoscopy Family History Father MVA (motor vehicle accident) Mother Heart failure Social History Housing: House Alcohol intake: current Alcohol intake frequency: a few times a week Patient Tobacco Use Status: Never used Tobacco e-Cigarette/Vaping Use: Never Used Current occupational status: retired Cognitive needs: No Hearing needs: Yes Vision needs: Yes Questionnaire Medicare Wellness Checkup [age] What gender do you identify with?: male During the past 4 weeks, how much have you been bothered by emotional problems such as feeling anxious, depressed, irritable, sad or downhearted, and blue?: not at all During the past 4 weeks, has your physical & emotional health limited your social activities with family, friends, neighbors, or groups?: not at all During the past 4 weeks, how much bodily pain have you generally had?: very mild pain During the past 4 weeks, was someone available to help you if you needed & wanted help?: yes, as much as I wanted During the past 4 weeks, what was the hardest physical activity you could do for at least 2 minutes?: moderate Can you get to places out of walking distance without help? (For eg., can you travel alone on buses, taxis or drive your car?): Yes Can you go shopping for groceries or clothes without someone's help?: Yes Can you prepare your own meals?: Yes Can you do your housework without help?: Yes Because of any health problems, do you need the help of another person with your personal care needs such as eating, bathing, dressing or getting around the house?: No Can you handle your own money without help?: Yes During the past 4 weeks, how would you rate your health in general?: good During the past 4 weeks how have things been going for you?: pretty well Are you having difficulties driving your car?: no Do you always fasten your seat belt when you are in a car?: yes, usually During past 4 weeks, have you been bothered by the following: never: Falling or dizzy when standing up, Sexual problems?, Trouble eating well?, Teeth or denture problems? and Problems using the telephone? and seldom: Tiredness or fatigue? Have you fallen 2 or more times in the past year?: No Are you afraid of falling?: Yes Are you a smoker?: no During the past 4 weeks, how many drinks of wine, beer, or other alcoholic beverages did you have?: 2-5 drinks per week Do you exercise for about 20 minutes 3 or more times a week?: yes, most of the time Have you been given information to help with the following?: yes: Keeping track of your medications? and no: Hazards in your house that might hurt you? How often do you have trouble taking medicines the way you have been told to take them?: I always take medicine as prescribed How confident are you that you can control & manage most of your health problems?: somewhat confident What is your race?: White Mini Mental State Exam (MMSE) Orientation What is the (year) (season) (date) (day) (month)?: year, season, date, day and month Where are we (state) (county) (town or city) (hospital) (floor)?: state, county, town or city, hospital/clinic and floor Registration Name of 3 unrelated objects clearly and slowly, then ask patient to repeat all 3 of them. (1st repeat determines score. Make sure they can repeat all three): object 2 and object 3 Attention & Calculation (CHOOSE ONE) Spell WORLD backwards (DLROW): 5 letters Recall Ask patient to repeat the 3 items from question #3.: object 1, object 2 and object 3 Language Show patient a wristwatch & ask what it is. Repeat for pencil.: watch and pencil Ask the patient to repeat the phrase 'No ifs, ands, or buts' after you.: correct Ask the patient to 'take a piece of paper with their right hand' 'fold paper in half' 'place paper on floor': take paper in right hand, fold paper in half and place paper on floor Print the sentence 'CLOSE YOUR EYES' on a piece. If patient actually closes eyes then score.: followed written direction Give patient a blank piece of paper & ask to write a sentence. Score if it contains a noun & verb.: sentence contains subject and verb Ask patient to copy figure of intersecting pentagons exactly. Score if all 10 angles & 2 intersects are included.: all 10 angles present & 2 are intersected Score Score: 29 Activity of Daily Living Bathing - sponge bath, tub bath or shower: receives no assistance (gets in/out by self, if usual bathing means Dressing - getting clothes from closets & drawers, including inner/outer garments & fasteners.: gets clothes & gets completely dressed without help Toileting - going to the 'toilet room' for urine/bowel elimination & cleaning self/arranging clothes: goes to toilet room, cleans self, arranges clothes without help Transfer: moves in & out of bed and chair without help (may use support object) Continence: controls urination/bowel movements completely by self Feeding: feeds self without help Total Score: 0 Information obtained from: patient Using telephone: independent Traveling: independent Shopping: independent Preparing meals: independent Housework: independent Taking medicine: independent Managing money: independent PHQ-9 Over the last 2 weeks, how often have you been bothered by any of the following problems? 1. Little interest or pleasure in doing things: not at all 2. Feeling down, depressed, or hopeless: not at all 3. Trouble falling or staying asleep, or sleeping too much: not at all 4. Feeling tired or having little energy: not at all 5. Poor appetite or overeating: not at all 6. Feeling bad about yourself - or that you are a failure or have let yourself or your family down: not at all 7. Trouble concentrating on things, such as reading the newspaper or watching television: not at all 8. Moving or speaking so slowly that other people could have noticed. Or the opposite - being so fidgety or restless that you have been moving around a lot more than usual: not at all 9. Thoughts that you would be better off or of hurting yourself in some way: not at all Total score: 0 Depression Screening Interpretation: Negative Source: Developed by Drs. Nain Goss, Ramya Rudolph, Edgard Langston and colleagues, with an educational cornell from [employer]. Review of Systems Const All systems reviewed & are unremarkable except as noted in HPI and below Reports no additional complaints Eyes Reports no additional complaints ENT Reports no additional complaints Card Reports no additional complaints Resp Reports no additional complaints GI Reports no additional complaints Physical Exam Vital Signs: Last Vital Signs Pulse 71 01/13/23 09:04 BP 120/72 01/13/23 09:04 Pulse Ox 100 01/13/23 09:04 Oxygen Delivery Method Room Air 01/13/23 09:04 BMI result Body Mass Index 27.2 Const General: no acute distress HEENT Head: Yes normal to inspection Neck Neck: Yes no lymphadenopathy and Yes supple Resp Effort & Inspection: normal respiratory effort Auscultation: clear to auscultation bilaterally Cardio Rhythm: regular rhythm Heart sounds: S1 normal heart sound present and S2 normal heart sound present GI Inspection: Yes normal to inspection Palpation (GI): Soft to palpation Percussion: Yes normal to percussion Auscultation: normal bowel sounds Extrem General: Yes no clubbing, cyanosis or edema Assessment & Plan Assessment & Plan (1) Diabetes mellitus: Code(s): E11.9 - Type 2 diabetes mellitus without complications Plan: A1c is down to 6.2, continue ADA diet current medications follow-up in 3 months with a fasting labs before (2) CKD (chronic kidney disease) stage 3, GFR 30-59 ml/min: Comment: Follow-up with nephrology Code(s): N18.30 - Chronic kidney disease, stage 3 unspecified Qualifiers: Chronic kidney disease stage 3 subtype: unspecified whether 3a or 3b Qualified Code(s): N18.30 - Chronic kidney disease, stage 3 unspecified Plan: Avoid NSAIDs monitor renal function follow-up with paralegals (3) HTN (hypertension): Comment: BP < 130/80 Code(s): I10 - Essential (primary) hypertension Plan: Continue current medications (4) Hyperlipidemia: Code(s): E78.5 - Hyperlipidemia, unspecified Plan: Continue statin (5) Annual physical exam: Code(s): Z00.00 - Encounter for general adult medical examination without abnormal findings Plan: Well-balanced diet and regular physical activity discussed with the patient Orders: Orders Comprehensive [place]. Panel Fast 3 Months E11.9 - Type 2 diabetes mellitus without complications, E78.5 - Hyperlipidemia, unspecified, I10 - Essential (primary) hypertension, N18.30 - Chronic kidney disease, stage 3 unspecified, Z00.00 - Encounter for general adult medical examination without abnormal findings Hemoglobin A1c 3 Months E11.9 - Type 2 diabetes mellitus without complications, E78.5 - Hyperlipidemia, unspecified, I10 - Essential (primary) hypertension, N18.30 - Chronic kidney disease, stage 3 unspecified, Z00.00 - Encounter for general adult medical examination without abnormal findings Lipid Panel 3 Months E11.9 - Type 2 diabetes mellitus without complications, E78.5 - Hyperlipidemia, unspecified, I10 - Essential (primary) hypertension, N18.30 - Chronic kidney disease, stage 3 unspecified, Z00.00 - Encounter for general adult medical examination without abnormal findings Microalbumin, Random (w Creat) 3 Months E11.9 - Type 2 diabetes mellitus without complications, E78.5 - Hyperlipidemia, unspecified, I10 - Essential (primary) hypertension, N18.30 - Chronic kidney disease, stage 3 unspecified, Z00.00 - Encounter for general adult medical examination without abnormal findings Complete Blood Count Auto Diff 3 Months E11.9 - Type 2 diabetes mellitus without complications, E78.5 - Hyperlipidemia, unspecified, I10 - Essential (primary) hypertension, N18.30 - Chronic kidney disease, stage 3 unspecified, Z00.00 - Encounter for general adult medical examination without abnormal findings Quality Reporting (2019) Depression/Bipolar (159/160/161/177) PHQ-9: Total score: 0 Coding Level of Care Code Medicare Subsequent (G0439) Diagnoses Diabetes mellitus E11.9 CKD (chronic kidney disease) stage 3, GFR 30-59 ml/min N18.30 Chronic kidney disease stage 3 subtype: unspecified whether 3a or 3b HTN (hypertension) I10 Hyperlipidemia E78.5 Annual physical exam Z00.00 CPT Codes Advance Care Planning - Time spent: 1-15 minutes, not on file ([id number]) Advance Care Planning Advance Care Planning discussion: Exists, not on file Forms completed: Health Care Proxy Time spent: 1-15 minutes, not on file
== END 2023-01-13 10:37 | disposition home or self-care (01) ==
PROVIDERS: PCP Internal Medicine; Visit Provider Internal Medicine
DX: Z00.00 Encounter for general adult medical examination without abnormal findings (principal); E11.22 Type 2 diabetes mellitus with diabetic chronic kidney disease; N18.30 Chronic kidney disease, stage 3 unspecified; I12.9 Hypertensive chronic kidney disease with stage 1 through stage 4 chronic kidney disease, or unspecified chronic kidney disease; E78.5 Hyperlipidemia, unspecified
CPT/HCPCS: 1124F; G0439

== ENCOUNTER 2023-04-09 07:47 | Outpatient (REF) | payer MEDICARE, OTHER, SELFPAY ==
[2023-04-09 11:22] LABS: MANUAL DIFF FLAG NO
[2023-04-09 11:29] LABS: Basophils Percent Auto 0.8 % (0-2); Eosinophils Absolute Auto 0.1 X10*3/uL (0.0-0.4); Eosinophils Percent Auto 0.9 % (0-4); Hematocrit 46.4 % (42.0-52.0); Hemoglobin 15.6 g/dl (14.0-18.0); Imm Gran Abs Auto 0.02 X10*3/uL (0.00-0.03); Imm Gran Pct Auto 0.4 % (0.0-0.4); Lymphocytes Absolute Auto 1.6 X10*3/uL (1.2-4.9); Lymphocytes Percent Auto 29.7 % (20-40); Mean Corpuscular HGB Conc 33.6 g/dl (31.0-36.0); Mean Corpuscular Hemoglobin 30.2 pg (27.0-33.0); Mean Corpuscular Volume 89.7 fL (80.0-98.0); Mean Platelet Volume 10.3 fL (9.4-12.4); Monocytes Absolute Auto 0.5 X10*3/uL (0.1-1.2); Monocytes Percent Auto 9.8 % (2-11); Neutrophils Absolute Auto 3.1 x10*3/uL (2.0-8.3); Neutrophils Percent Auto 58.4 % (45-73); Platelet Count 155 X10*3/uL (160-400); Red Blood Count 5.17 X10*6/uL (4.60-5.80); Red Cell Distribution Width 12.5 % (11.0-16.0); White Blood Count 5.3 X10*3/uL (4.8-10.8)
[2023-04-09 11:40] LABS: Estimated Average Glucose 134 mg/dL; Hemoglobin A1c % 6.3 % (<6.0)
[2023-04-09 11:41] LABS: Alanine Aminotransferase 17 U/L (0-40); Albumin Level 4.1 g/dL (3.5-5.0); Alkaline Phosphatase 72 U/L (39-117); Anion Gap 12 (12-20); Aspartate Amino Transferase 20 U/L (5-37); Bilirubin Total 0.8 mg/dL (0.0-1.0); Blood Urea Nitrogen 29 mg/dL (9-16); Calcium 9.4 mg/dL (8.4-10.2); Carbon Dioxide 26 mmol/L (22-29); Chloride 106 mmol/L (96-108); Cholesterol 148 mg/dL (<200); Estimated Glomerular Filt Rate 49; Glucose Fasting 134 mg/dL (60-99); HDL Cholesterol 39 mg/dL (>40); LDL Cholesterol Calculated 92 mg/dL (<100); Potassium 4.1 mmol/L (3.3-5.1); Sodium 140 mmol/L (135-145); Total Protein 7.2 g/dL (6.5-8.0); Triglycerides 89 mg/dL (<150)
[2023-04-09 12:43] LABS: Creatinine Urine 103.35 mg/dL; Microalbum/Creatinine Ratio Ur 7.7 ug/mg cr (<30)
== END 2023-04-09 07:48 | disposition home or self-care (01) ==
LOC: HO.HMGCLDS 07:47
PROVIDERS: PCP Internal Medicine; Visit Provider Internal Medicine
DX: Z00.00 Encounter for general adult medical examination without abnormal findings (principal); I12.9 Hypertensive chronic kidney disease with stage 1 through stage 4 chronic kidney disease, or unspecified chronic kidney disease; E11.22 Type 2 diabetes mellitus with diabetic chronic kidney disease; N18.30 Chronic kidney disease, stage 3 unspecified; E78.5 Hyperlipidemia, unspecified
CPT/HCPCS: 36415; 80053; 80061; 82043; 82570; 83036; 85025

== ENCOUNTER 2023-04-13 09:48 | Outpatient (AMB) | payer MEDICARE, OTHER, SELFPAY ==
[2023-04-13 09:52] VITALS: BP 120/64; PULSE 69; O2SAT 96; BMI 26.9
--- NOTE | 2023-04-13 09:52 | MHC.PC.OV ---
Vital Signs 04/13/23 09:52 Height 6 ft 3 in Weight 215 lb BMI 26.9 BP 120/64 Blood Pressure Location Lt brachial Position Sitting Pulse 69 Pulse Source Pulse Oximeter Pulse Oximetry (%) 96 Oxygen Delivery Method Room Air Intake Visit Reasons: 3 month follow up DM Intake Note: Pt is here today for 3 months follow up visit on lab results. Allergies No Known Allergies [No Known Allergies*] Allergy (Verified 04/13/23 09:54) Medication List - Last Reconciled 04/13/23 by Renetta Rangel MD amlodipine 10 mg PO DAILY atorvastatin 20 mg PO DAILY blood sugar diagnostic (Accu-Chek Maris Plus test strips) use one strip once a day to test blood sugar dapagliflozin propanediol (Farxiga) 10 mg PO DAILY flu vac 2020 [id number](PF) 60 mcg (15 mcg x 4)/0.5 mL mL IM lancets (Accu-Chek Fastclix Lancet Drum) use to test blood sugar once a day lisinopril 10 mg PO DAILY metformin 500 mg PO DAILY omeprazole 20 mg PO DAILY pneumoc 13-yogesh conj-dip cr(PF) mL IM Tobacco use date assessed: 04/13/23 Dental Screening Dental Screen Date: 04/13/23 Did you have a dental visit in the last 12 months?: Yes Did you have a dental problem in the last 6 months where you did not have access to dental care?: No Was dental information given to patient?: Patient has dentist HPI 3 month follow up DM HPI Details Pt presents for f/u DM 2, HTN, hyperlipid, stable on meds. [facility] Medical History Annual physical exam CKD (chronic kidney disease) stage 3, GFR 30-59 ml/min HTN (hypertension) Hyperlipidemia Lumbar disc disease Overweight Pneumonia Renal mass Type 2 diabetes mellitus Surgical History H/O colonoscopy Family History Father MVA (motor vehicle accident) Mother Heart failure Social History Housing: House Alcohol intake: current Alcohol intake frequency: a few times a week Patient Tobacco Use Status: Never used Tobacco e-Cigarette/Vaping Use: Never Used Current occupational status: retired Cognitive needs: No Hearing needs: Yes Vision needs: Yes Questionnaire Thrive Questionnaire Date Thrive assessed: 06/16/22 ARAM-7 AMB Questionnaire ARAM-7 Date ARAM - 7 assessed: 06/16/22 Source: Developed by Drs. Nain Goss, Ramya Rudolph, Edgard Langston and colleagues, with an educational cornell from [employer]. Review of Systems Const All systems reviewed & are unremarkable except as noted in HPI and below Reports no additional complaints Eyes Reports no additional complaints ENT Reports no additional complaints Card Reports no additional complaints Resp Reports no additional complaints GI Reports no additional complaints Reports no additional complaints Musc Reports no additional complaints Physical exam (Primary Care) Vital Signs: Last Vital Signs Pulse 69 04/13/23 09:52 BP 120/64 04/13/23 09:52 Pulse Ox 96 04/13/23 09:52 Oxygen Delivery Method Room Air 04/13/23 09:52 BMI result Body Mass Index 26.9 Tobacco/Smoking Status: Tobacco use Status Tobacco use date assessed 04/13/23 04/13/23 09:56 Patient Tobacco Use Status Never used Tobacco 04/13/23 09:56 e-Cigarette/Vaping Use Never Used 04/13/23 09:56 Thrive Assessment: Date of Thrive Assessment Date Thrive assessed 06/16/22 04/13/23 09:56 Const General: no acute distress HENMT Head: Yes normal to inspection Ears: hearing grossly normal bilaterally Face and sinus: Yes normal facial exam Mouth: Normal oral and palatal mucosa present Throat: Yes posterior oropharynx normal Eyes General: appearance normal, both eyes and all related structures Neck Neck: Yes no lymphadenopathy and Yes supple Resp Effort & Inspection: normal respiratory effort Auscultation: clear to auscultation bilaterally Cardio Rhythm: regular rhythm Heart sounds: S1 normal heart sound present and S2 normal heart sound present GI Inspection: Yes normal to inspection Palpation (GI): Soft to palpation Percussion: Yes normal to percussion Auscultation: normal bowel sounds Assessment and Plan Assessment & Plan (1) Hyperlipidemia: Code(s): E78.5 - Hyperlipidemia, unspecified Plan: cont statin (2) HTN (hypertension): Comment: BP < 130/80 Code(s): I10 - Essential (primary) hypertension Plan: cont meds (3) Diabetes mellitus: Code(s): E11.9 - Type 2 diabetes mellitus without complications Plan: A1c is 6.3, ADA diet increase physical activity weight loss discussed with the patient. Continue current medications and follow-up in 4 months with a fasting labs before (4) CKD (chronic kidney disease) stage 3, GFR 30-59 ml/min: Comment: Follow-up with nephrology Code(s): N18.30 - Chronic kidney disease, stage 3 unspecified Qualifiers: Chronic kidney disease stage 3 subtype: unspecified whether 3a or 3b Qualified Code(s): N18.30 - Chronic kidney disease, stage 3 unspecified Plan: Avoid NSAIDs monitor renal function follow-up with nephrology Orders: Orders Complete Blood Count Auto Diff 4 Months E11.9 - Type 2 diabetes mellitus without complications, E78.5 - Hyperlipidemia, unspecified, I10 - Essential (primary) hypertension, N18.30 - Chronic kidney disease, stage 3 unspecified Lipid Panel 4 Months E11.9 - Type 2 diabetes mellitus without complications, E78.5 - Hyperlipidemia, unspecified, I10 - Essential (primary) hypertension, N18.30 - Chronic kidney disease, stage 3 unspecified Comprehensive [place]. Panel Fast 4 Months E11.9 - Type 2 diabetes mellitus without complications, E78.5 - Hyperlipidemia, unspecified, I10 - Essential (primary) hypertension, N18.30 - Chronic kidney disease, stage 3 unspecified Hemoglobin A1c 4 Months E11.9 - Type 2 diabetes mellitus without complications, E78.5 - Hyperlipidemia, unspecified, I10 - Essential (primary) hypertension, N18.30 - Chronic kidney disease, stage 3 unspecified Microalbumin, Random (w Creat) 4 Months E11.9 - Type 2 diabetes mellitus without complications, E78.5 - Hyperlipidemia, unspecified, I10 - Essential (primary) hypertension, N18.30 - Chronic kidney disease, stage 3 unspecified Coding Level of Care Code Est Pt Level 4 (23956) Diagnoses Hyperlipidemia E78.5 HTN (hypertension) I10 Diabetes mellitus E11.9 CKD (chronic kidney disease) stage 3, GFR 30-59 ml/min N18.30 Chronic kidney disease stage 3 subtype: unspecified whether 3a or 3b
== END 2023-04-13 10:30 | disposition home or self-care (01) ==
PROVIDERS: PCP Internal Medicine; Visit Provider Internal Medicine
DX: E78.5 Hyperlipidemia, unspecified (principal); I12.9 Hypertensive chronic kidney disease with stage 1 through stage 4 chronic kidney disease, or unspecified chronic kidney disease; E11.22 Type 2 diabetes mellitus with diabetic chronic kidney disease; N18.30 Chronic kidney disease, stage 3 unspecified
CPT/HCPCS: 99214

== ENCOUNTER 2023-08-13 07:08 | Outpatient (REF) | payer MEDICARE, OTHER, SELFPAY ==
[2023-08-13 11:22] LABS: MANUAL DIFF FLAG NO
[2023-08-13 11:33] LABS: Basophils Percent Auto 0.5 % (0-2); Eosinophils Absolute Auto 0.1 X10*3/uL (0.0-0.4); Eosinophils Percent Auto 1.5 % (0-4); Hematocrit 45.7 % (42.0-52.0); Hemoglobin 15.3 g/dl (14.0-18.0); Imm Gran Abs Auto 0.03 X10*3/uL (0.00-0.03); Imm Gran Pct Auto 0.5 % (0.0-0.4); Lymphocytes Absolute Auto 1.3 X10*3/uL (1.2-4.9); Lymphocytes Percent Auto 20.5 % (20-40); Mean Corpuscular HGB Conc 33.5 g/dl (31.0-36.0); Mean Corpuscular Hemoglobin 30.1 pg (27.0-33.0); Mean Platelet Volume 9.9 fL (9.4-12.4); Monocytes Absolute Auto 0.5 X10*3/uL (0.1-1.2); Monocytes Percent Auto 7.3 % (2-11); Neutrophils Absolute Auto 4.3 x10*3/uL (2.0-8.3); Neutrophils Percent Auto 69.7 % (45-73); Platelet Count 180 X10*3/uL (160-400); Red Blood Count 5.08 X10*6/uL (4.60-5.80); Red Cell Distribution Width 13.5 % (11.0-16.0); White Blood Count 6.2 X10*3/uL (4.8-10.8)
[2023-08-13 11:47] LABS: Estimated Average Glucose 126 mg/dL
[2023-08-13 11:56] LABS: Alanine Aminotransferase 22 U/L (0-40); Alkaline Phosphatase 71 U/L (39-117); Anion Gap 10 (12-20); Aspartate Amino Transferase 20 U/L (5-37); Bilirubin Total 0.6 mg/dL (0.0-1.0); Blood Urea Nitrogen 21 mg/dL (9-16); Calcium 10.1 mg/dL (8.4-10.2); Carbon Dioxide 27 mmol/L (22-29); Chloride 108 mmol/L (96-108); Cholesterol 145 mg/dL (<200); Estimated Glomerular Filt Rate 48; Glucose Fasting 136 mg/dL (60-99); HDL Cholesterol 40 mg/dL (>40); LDL Cholesterol Calculated 83 mg/dL (<100); Sodium 141 mmol/L (135-145); Triglycerides 112 mg/dL (<150)
[2023-08-13 12:07] LABS: Creatinine Urine 96.55 mg/dL; Microalbum/Creatinine Ratio Ur 16.5 ug/mg cr (<30)
== END 2023-08-13 07:09 | disposition home or self-care (01) ==
LOC: HO.HMGCLDS 07:08
PROVIDERS: PCP Internal Medicine; Visit Provider Internal Medicine
DX: E11.22 Type 2 diabetes mellitus with diabetic chronic kidney disease (principal); I12.9 Hypertensive chronic kidney disease with stage 1 through stage 4 chronic kidney disease, or unspecified chronic kidney disease; E78.5 Hyperlipidemia, unspecified; N18.30 Chronic kidney disease, stage 3 unspecified
CPT/HCPCS: 36415; 80053; 80061; 82043; 82570; 83036; 85025

== ENCOUNTER 2023-08-16 09:52 | Outpatient (AMB) | payer MEDICARE, OTHER, SELFPAY ==
--- NOTE | 2023-08-16 10:00 | A.OFFPC_ITS ---
Vital Signs 08/16/23 10:03 Height 6 ft 3 in Weight 219 lb BMI 27.4 BP 120/68 Blood Pressure Location Lt brachial Position Sitting Pulse 75 Pulse Source Pulse Oximeter Pulse Oximetry (%) 96 Oxygen Delivery Method Room Air Intake Visit Reasons: 4 month follow up DM Intake Note: Pt is here today for 4 months follow up visit. Allergies No Known Allergies [No Known Allergies*] Allergy (Verified 08/16/23 10:08) Medication List - Last Reconciled 08/16/23 by Renetta Rangel MD amlodipine 10 mg PO DAILY atorvastatin 20 mg PO DAILY blood sugar diagnostic (Accu-Chek Maris Plus test strips) use one strip once a day to test blood sugar dapagliflozin propanediol (Farxiga) 10 mg PO DAILY flu vac 2020 65up-[id number](PF) 60 mcg (15 mcg x 4)/0.5 mL mL IM lancets (Accu-Chek Fastclix Lancet Drum) use to test blood sugar once a day lisinopril 10 mg PO DAILY metformin 500 mg PO DAILY omeprazole 20 mg PO DAILY pneumoc 13-yogesh conj-dip cr(PF) mL IM Tobacco use date assessed: 08/16/23 Fall risk assessment: No Falls in past year Last assessed Fall Risk: 08/16/23 Dental Screening Dental Screen Date: 08/16/23 Did you have a dental visit in the last 12 months?: Yes Did you have a dental problem in the last 6 months where you did not have access to dental care?: No Was dental information given to patient?: Patient has dentist HPI 4 month follow up DM HPI Details Pt presents for f/u DM 2, HTN, CKD 3, hyperlipid, stable on meds. [facility] Medical History Annual physical exam Pneumonia Lumbar disc disease Renal mass CKD (chronic kidney disease) stage 3, GFR 30-59 ml/min Overweight Hyperlipidemia HTN (hypertension) Type 2 diabetes mellitus Surgical History (Updated 08/16/23 @ 11:21 by Renetta Rangel MD) H/O colonoscopy Family History Father MVA (motor vehicle accident) Mother Heart failure Social History Housing: House Alcohol intake: current Alcohol intake frequency: a few times a week Patient Tobacco Use Status: Never used Tobacco e-Cigarette/Vaping Use: Never Used Current occupational status: retired Cognitive needs: No Hearing needs: Yes Vision needs: Yes Questionnaire PHQ-9 Over the last 2 weeks, how often have you been bothered by any of the following problems? 1. Little interest or pleasure in doing things: not at all 2. Feeling down, depressed, or hopeless: not at all 3. Trouble falling or staying asleep, or sleeping too much: not at all 4. Feeling tired or having little energy: not at all 5. Poor appetite or overeating: not at all 6. Feeling bad about yourself - or that you are a failure or have let yourself or your family down: not at all 7. Trouble concentrating on things, such as reading the newspaper or watching television: not at all 8. Moving or speaking so slowly that other people could have noticed. Or the opposite - being so fidgety or restless that you have been moving around a lot more than usual: not at all 9. Thoughts that you would be better off or of hurting yourself in some way: not at all Total score: 0 Depression Screening Interpretation: Negative Depression Screening Done: Yes Source: Developed by Drs. Nain Goss, Ramya Rudolph, Edgard Langston and colleagues, with an educational cornell from [employer]. Thrive Questionnaire Date Thrive assessed: 08/16/23 I am a: Patient What is your living situation today?: I have a steady place to live Within the past 12 months, did the food you bought not last and you didn't have the money to get more?: Never true Within the past 12 months, did you worry whether your food would run out before you got money to buy more?: Never true Do you have trouble paying for medicines?: No Do you have trouble getting transportation to medical appointments?: No Do you have trouble paying your heating and electricity bill?: No Do you have trouble taking care of your child, family member or friend?: No Do you have trouble with day-to-day activities such as bathing, preparing meals, shopping, managing finances, etc.?: No Are you currently unemployed and looking for a job?: No Are you interested in more education?: No Please select the resources that you would like help with: None Currently or been in a relationship where the following occur: no concerns reported THRIVE Score: 0 AUDIT C Alcohol Use Questionnaire (AUDIT-C) 1. How often do you have a drink containing alcohol?: 2-4 times a month 2. How many drinks containing alcohol do you have on a typical day when you are drinking?: 1 or 2 3. How often do you have six or more drinks on one occasion?: Never Total Score: 2 Score Reviewed/Action Taken: No ARAM-7 AMB Questionnaire ARAM-7 Date ARAM - 7 assessed: 08/16/23 Feeling nervous, anxious, or on edge: 0 = Not at all Not being able to stop or control worryin = Not at all Worrying too much about different things: 0 = Not at all Trouble relaxin = Not at all Being so restless that it is hard to sit still: 0 = Not at all Becoming easily annoyed or irritable: 0 = Not at all Feeling afraid as if something awful might happen: 0 = Not at all Total ARAM-7 score (0-4 normal; 5-9 mild; 10-14 moderate; 15-21 severe): 0 Source: Developed by Drs. Nain Goss, Ramya Rudolph, Edgard Langston and colleagues, with an educational cornell from [employer]. Review of Systems Const All systems reviewed & are unremarkable except as noted in HPI and below Reports no additional complaints Eyes Reports no additional complaints ENT Reports no additional complaints Card Reports no additional complaints Resp Reports no additional complaints GI Reports no additional complaints Reports no additional complaints Physical exam (Primary Care) Vital Signs: Last Vital Signs Pulse 75 08/16/23 10:03 BP 120/68 08/16/23 10:03 Pulse Ox 96 08/16/23 10:03 Oxygen Delivery Method Room Air 08/16/23 10:03 BMI result Body Mass Index 27.4 Tobacco/Smoking Status: Tobacco use Status Tobacco use date assessed 08/16/23 08/16/23 10:10 Patient Tobacco Use Status Never used Tobacco 08/16/23 10:10 e-Cigarette/Vaping Use Never Used 08/16/23 10:00 PHQ-9: PHQ-9 Score PHQ-9: Total score 0 08/16/23 10:11 Depression Screening Interpretation: Negative Thrive Assessment: Date of Thrive Assessment Date Thrive assessed 08/16/23 08/16/23 10:11 Currently or been in a relationship where the following occur: no concerns reported Const General: no acute distress HENMT Head: Yes normal to inspection Ears: hearing grossly normal bilaterally Face and sinus: Yes normal facial exam Throat: Yes posterior oropharynx normal Eyes General: appearance normal, both eyes and all related structures Neck Neck: Yes no lymphadenopathy and Yes supple Resp Effort & Inspection: normal respiratory effort Auscultation: clear to auscultation bilaterally Cardio Rhythm: regular rhythm Heart sounds: S1 normal heart sound present and S2 normal heart sound present GI Inspection: Yes normal to inspection Palpation (GI): Soft to palpation Percussion: Yes normal to percussion Auscultation: normal bowel sounds Assessment and Plan Assessment & Plan (1) Diabetes mellitus: Code(s): E11.9 - Type 2 diabetes mellitus without complications Plan: A1c is down to 6.0, continue ADA diet and current medications (2) CKD (chronic kidney disease) stage 3, GFR 30-59 ml/min: Comment: Follow-up with nephrology Code(s): N18.30 - Chronic kidney disease, stage 3 unspecified Qualifiers: Chronic kidney disease stage 3 subtype: unspecified whether 3a or 3b Qualified Code(s): N18.30 - Chronic kidney disease, stage 3 unspecified Plan: Monitor renal function and avoid nephrotoxins (3) HTN (hypertension): Comment: BP < 130/80 Code(s): I10 - Essential (primary) hypertension Plan: Continue current medications (4) Hyperlipidemia: Code(s): E78.5 - Hyperlipidemia, unspecified Plan: Continue atorvastatin (5) Renal mass: Comment: 3.9 cm R kidney, bx 05/25 negative, CT Q 6 mths, f/u Urology in [place] Code(s): N28.89 - Other specified disorders of kidney and ureter Plan: Follow-up with urology for imaging every 6 months (6) H/O colonoscopy: Comment: 08/2012, order Cologuard 08/28 Code(s): Z98.890 - Other specified postprocedural states Plan: Patient declined colonoscopy Cologuard is ordered Orders: Orders Comprehensive [place]. Panel Fast 5 Months E11.9 - Type 2 diabetes mellitus without complications, I10 - Essential (primary) hypertension, N18.30 - Chronic kidney disease, stage 3 unspecified Lipid Panel 5 Months E11.9 - Type 2 diabetes mellitus without complications, I10 - Essential (primary) hypertension, N18.30 - Chronic kidney disease, stage 3 unspecified Complete Blood Count Auto Diff 5 Months E11.9 - Type 2 diabetes mellitus without complications, I10 - Essential (primary) hypertension, N18.30 - Chronic kidney disease, stage 3 unspecified Hemoglobin A1c 5 Months E11.9 - Type 2 diabetes mellitus without complications, I10 - Essential (primary) hypertension, N18.30 - Chronic kidney disease, stage 3 unspecified Microalbumin, Random (w Creat) 5 Months E11.9 - Type 2 diabetes mellitus without complications Medications: Refilled metformin 500 mg PO DAILY 90 tabs 3RF metformin 500 mg PO DAILY 90 tabs 3RF Coding Level of Care Code Est Pt Level 4 (16764) Diagnoses Diabetes mellitus E11.9 CKD (chronic kidney disease) stage 3, GFR 30-59 ml/min N18.30 Chronic kidney disease stage 3 subtype: unspecified whether 3a or 3b HTN (hypertension) I10 Hyperlipidemia E78.5 Renal mass N28.89 H/O colonoscopy Z98.890
[2023-08-16 10:03] VITALS: BP 120/68; PULSE 75; O2SAT 96; BMI 27.4
== END 2023-08-16 11:21 | disposition home or self-care (01) ==
PROVIDERS: PCP Internal Medicine; Visit Provider Internal Medicine
DX: I12.9 Hypertensive chronic kidney disease with stage 1 through stage 4 chronic kidney disease, or unspecified chronic kidney disease (principal); E11.22 Type 2 diabetes mellitus with diabetic chronic kidney disease; N18.30 Chronic kidney disease, stage 3 unspecified; E78.5 Hyperlipidemia, unspecified; N28.89 Other specified disorders of kidney and ureter; Z98.890 Other specified postprocedural states
CPT/HCPCS: 99214

== ENCOUNTER 2024-01-17 08:00 | Outpatient (REF) | payer MEDICARE, OTHER, SELFPAY ==
[2024-01-17 09:51] LABS: MANUAL DIFF FLAG NO
[2024-01-17 10:14] LABS: Basophils Percent Auto 0.7 % (0-2); Eosinophils Absolute Auto 0.1 X10*3/uL (0.0-0.4); Hematocrit 46.9 % (42.0-52.0); Hemoglobin 16.4 g/dl (14.0-18.0); Imm Gran Abs Auto 0.02 X10*3/uL (0.00-0.03); Imm Gran Pct Auto 0.3 % (0.0-0.4); Lymphocytes Absolute Auto 1.5 X10*3/uL (1.2-4.9); Lymphocytes Percent Auto 25.1 % (20-40); Mean Corpuscular Hemoglobin 31.4 pg (27.0-33.0); Mean Corpuscular Volume 89.8 fL (80.0-98.0); Mean Platelet Volume 10.4 fL (9.4-12.4); Monocytes Absolute Auto 0.5 X10*3/uL (0.1-1.2); Monocytes Percent Auto 8.2 % (2-11); Neutrophils Absolute Auto 3.8 x10*3/uL (2.0-8.3); Neutrophils Percent Auto 63.7 % (45-73); Platelet Count 147 X10*3/uL (160-400); Red Blood Count 5.22 X10*6/uL (4.60-5.80); Red Cell Distribution Width 12.6 % (11.0-16.0)
[2024-01-17 10:23] LABS: Alanine Aminotransferase 17 U/L (0-40); Albumin Level 4.2 g/dL (3.5-5.0); Alkaline Phosphatase 63 U/L (39-117); Anion Gap 11 (12-20); Aspartate Amino Transferase 18 U/L (5-37); Bilirubin Total 0.7 mg/dL (0.0-1.0); Blood Urea Nitrogen 32 mg/dL (9-16); Calcium 9.4 mg/dL (8.4-10.2); Carbon Dioxide 27 mmol/L (22-29); Chloride 106 mmol/L (96-108); Cholesterol 144 mg/dL (<200); Estimated Glomerular Filt Rate 45; Glucose Fasting 132 mg/dL (60-99); HDL Cholesterol 44 mg/dL (>40); LDL Cholesterol Calculated 79 mg/dL (<100); Potassium 4.2 mmol/L (3.3-5.1); Sodium 140 mmol/L (135-145); Total Protein 7.2 g/dL (6.5-8.0); Triglycerides 109 mg/dL (<150)
[2024-01-17 10:29] LABS: Creatinine Urine 90.44 mg/dL; Microalbum/Creatinine Ratio Ur 6.6 ug/mg cr (<30)
[2024-01-17 10:51] LABS: Estimated Average Glucose 126 mg/dL
== END 2024-01-17 08:01 | disposition home or self-care (01) ==
LOC: HO.HMGCLDS 08:00
PROVIDERS: PCP Internal Medicine; Visit Provider Internal Medicine
DX: I10 Essential (primary) hypertension (principal); N18.30 Chronic kidney disease, stage 3 unspecified; E11.9 Type 2 diabetes mellitus without complications
CPT/HCPCS: 36415; 80053; 80061; 82043; 82570; 83036; 85025

== ENCOUNTER 2024-01-20 08:55 | Outpatient (AMB) | payer MEDICARE, OTHER, SELFPAY ==
[2024-01-20 08:59] VITALS: BP 122/72; PULSE 71; O2SAT 98; BMI 26.9
--- NOTE | 2024-01-20 09:03 | AM.OFFVISMDC ---
Intake Vital Signs 01/20/24 08:59 01/20/24 09:08 Height 6 ft 3 in Weight 215 lb BMI 26.9 26.9 BP 122/72 Blood Pressure Location Lt brachial Position Sitting Pulse 71 Pulse Source Pulse Oximeter Pulse Oximetry (%) 98 Oxygen Delivery Method Room Air Intake Visit Reasons: [facility] G0439 Allergies No Known Allergies [No Known Allergies*] Allergy (Verified 01/20/24 09:07) Medication List - Last Reconciled 01/20/24 by Renetta Rangel MD amlodipine 10 mg PO DAILY atorvastatin 20 mg PO DAILY blood sugar diagnostic (Accu-Chek Maris Plus test strips) use one strip once a day to test blood sugar dapagliflozin propanediol (Farxiga) 10 mg PO DAILY flu vac 2020 65up-[id number](PF) 60 mcg (15 mcg x 4)/0.5 mL mL IM lancets (Accu-Chek Fastclix Lancet Drum) use to test blood sugar once a day lisinopril 10 mg PO DAILY metformin 500 mg PO DAILY omeprazole 20 mg PO DAILY pneumoc 13-yogesh conj-dip cr(PF) mL IM HPI [facility] G0439 HPI Details Initiated the conversation about Advanced Directives. Advanced Directives help? patients prepare for current and future decisions about their medical treatment? and place of care. Discussed with patient that it is a process where a patients? current condition and prognosis are reviewed, their wishes for information? regarding their illness are elicited, and likely medical dilemmas are presented? and options discussed. The form can be amended as needed, reviewed yearly and? make changes as needed IPPE/AWV ? year old presents? for her ? Annual? Wellness Visit, initial visit.? Medical / Social History Reviewed? Past Medical History ?Yes? . ? [place]? of Care / Care Team list updated ?Yes . ? Surgical/Hospitalization? History ?Yes . ? Current Medications? (including OTC and supplements) ?Yes . ? Family History ?Yes? . ? Tobacco? Control form ?Yes . ? AUDIT-C (Alcohol use) form? ?Yes . ? Illicit drug use in Social? History ?Yes . ? Current diagnosis of? depression? ?No ? Appropriate PHQ2/PHQ9? completed ?Yes . ? Data entered by ?Medical? Spinning Frame Changer and reviewed by provider ? Fall Risk ? Fall? History? Have you had any falls with? injury in the past year? ?No . ? Have you had two or more? falls in the past year? ?No . ? Fall Risk Assessment: ?No? falls in the past year . ? HRA filled out by? the patient, reviewed by Provider and scanned. ? IPPE/AWV ? Balance? [place]? ?Yes . ? Tandem? walk ?Yes . ? Walk and? Turn ?Yes . ? Rise from? sit to stand ?Yes . ?Vision? Corrective? lens ?Yes ? Vision? screen ? Up-to-date, has an appointment [] for vision? screening and glaucoma screening ?Hearing? Whisper? test ?pass .? Initiated the conversation about Advanced Directives. Advanced Directives help? patients prepare for current and future decisions about their medical treatment? and place of care. Discussed with patient that it is a process where a patients? current condition and prognosis are reviewed, their wishes for information? regarding their illness are elicited, and likely medical dilemmas are presented? and options discussed. The form can be amended as needed, reviewed yearly and? make changes as needed Written? Plan?Completed. See Patient? Documents. [facility] Medical History (Updated 01/20/24 @ 09:36 by Renetta Rangel MD) Annual physical exam Pneumonia Lumbar disc disease Renal mass CKD (chronic kidney disease) stage 3, GFR 30-59 ml/min Overweight Hyperlipidemia HTN (hypertension) Type 2 diabetes mellitus Surgical History (Updated 08/16/23 @ 11:21 by Renetta Rangel MD) H/O colonoscopy Family History Father MVA (motor vehicle accident) Mother Heart failure Social History Housing: House Alcohol intake: current Alcohol intake frequency: a few times a week Patient Tobacco Use Status: Never used Tobacco e-Cigarette/Vaping Use: Never Used Current occupational status: retired Cognitive needs: No Hearing needs: Yes Vision needs: Yes Questionnaire Medicare Wellness Checkup [age] What gender do you identify with?: male During the past 4 weeks, how much have you been bothered by emotional problems such as feeling anxious, depressed, irritable, sad or downhearted, and blue?: not at all Mini Mental State Exam (MMSE) Orientation What is the (year) (season) (date) (day) (month)?: year, season, date, day and month Where are we (state) (county) (town or city) (hospital) (floor)?: state, county, town or city, hospital/clinic and floor Registration Name of 3 unrelated objects clearly and slowly, then ask patient to repeat all 3 of them. (1st repeat determines score. Make sure they can repeat all three): object 1, object 2 and object 3 Attention & Calculation (CHOOSE ONE) Spell WORLD backwards (DLROW): 5 letters Recall Ask patient to repeat the 3 items from question #3.: object 1, object 2 and object 3 Language Show patient a wristwatch & ask what it is. Repeat for pencil.: watch and pencil Ask the patient to repeat the phrase 'No ifs, ands, or buts' after you.: correct Ask the patient to 'take a piece of paper with their right hand' 'fold paper in half' 'place paper on floor': take paper in right hand, fold paper in half and place paper on floor Print the sentence 'CLOSE YOUR EYES' on a piece. If patient actually closes eyes then score.: followed written direction Give patient a blank piece of paper & ask to write a sentence. Score if it contains a noun & verb.: sentence contains subject and verb Score Score: 29 PHQ-9 Over the last 2 weeks, how often have you been bothered by any of the following problems? 1. Little interest or pleasure in doing things: not at all 2. Feeling down, depressed, or hopeless: not at all 3. Trouble falling or staying asleep, or sleeping too much: several days 4. Feeling tired or having little energy: several days 5. Poor appetite or overeating: not at all 6. Feeling bad about yourself - or that you are a failure or have let yourself or your family down: not at all 7. Trouble concentrating on things, such as reading the newspaper or watching television: not at all 8. Moving or speaking so slowly that other people could have noticed. Or the opposite - being so fidgety or restless that you have been moving around a lot more than usual: not at all 9. Thoughts that you would be better off or of hurting yourself in some way: not at all Total score: 2 Source: Developed by Drs. Nain Goss, Ramya Rudolph, Edgard Langston and colleagues, with an educational cornell from [employer]. Review of Systems Const All systems reviewed & are unremarkable except as noted in HPI and below Reports no additional complaints Eyes Reports no additional complaints ENT Reports no additional complaints Card Reports no additional complaints Resp Reports no additional complaints GI Reports no additional complaints Physical Exam Vital Signs: Last Vital Signs Pulse 71 01/20/24 08:59 BP 122/72 01/20/24 08:59 Pulse Ox 98 08/15/24 08:59 Oxygen Delivery Method Room Air 01/20/24 08:59 BMI result Body Mass Index 26.9 Const General: no acute distress HEENT Head: Yes normal to inspection Ears: hearing grossly normal bilaterally Eyes General: appearance normal, both eyes and all related structures Neck Neck: Yes no lymphadenopathy and Yes supple Resp Effort & Inspection: normal respiratory effort Auscultation: clear to auscultation bilaterally Cardio Rhythm: regular rhythm Heart sounds: S1 normal heart sound present and S2 normal heart sound present GI Inspection: Yes normal to inspection Palpation (GI): Soft to palpation Percussion: Yes normal to percussion Auscultation: normal bowel sounds Extrem Other: Diabetic foot exam skin is intact, there is absent monofilament and vibration sensation at a high socks level bilaterally General: Yes no clubbing, cyanosis or edema Assessment & Plan Assessment & Plan (1) Neuropathy: Comment: peripheral high sock distribution Code(s): G62.9 - Polyneuropathy, unspecified Plan: Check B12 level (2) HTN (hypertension): Comment: BP < 130/80 Code(s): I10 - Essential (primary) hypertension Plan: Continue current medications (3) Hyperlipidemia: Code(s): E78.5 - Hyperlipidemia, unspecified Plan: Continue statin (4) CKD (chronic kidney disease) stage 3, GFR 30-59 ml/min: Comment: Follow-up with nephrology Code(s): N18.30 - Chronic kidney disease, stage 3 unspecified Qualifiers: Chronic kidney disease stage 3 subtype: unspecified whether 3a or 3b Qualified Code(s): N18.30 - Chronic kidney disease, stage 3 unspecified Plan: Avoid nephrotoxins monitor renal function follow-up with nephrology (5) Diabetes mellitus: Code(s): E11.9 - Type 2 diabetes mellitus without complications Plan: A1c is 6.0, continue ADA diet regular exercise current medications follow-up in 6 months with a fasting labs before Orders: Orders Comprehensive [place]. Panel Fast 6 Months E11.9 - Type 2 diabetes mellitus without complications, E78.5 - Hyperlipidemia, unspecified, G62.9 - Polyneuropathy, unspecified, I10 - Essential (primary) hypertension, N18.30 - Chronic kidney disease, stage 3 unspecified Complete Blood Count Auto Diff 6 Months E11.9 - Type 2 diabetes mellitus without complications, E78.5 - Hyperlipidemia, unspecified, G62.9 - Polyneuropathy, unspecified, I10 - Essential (primary) hypertension, N18.30 - Chronic kidney disease, stage 3 unspecified Vitamin B12 and Folate Today G62.9 - Polyneuropathy, unspecified Lipid Panel 6 Months E11.9 - Type 2 diabetes mellitus without complications, E78.5 - Hyperlipidemia, unspecified, G62.9 - Polyneuropathy, unspecified, I10 - Essential (primary) hypertension, N18.30 - Chronic kidney disease, stage 3 unspecified Hemoglobin A1c 6 Months E11.9 - Type 2 diabetes mellitus without complications, E78.5 - Hyperlipidemia, unspecified, G62.9 - Polyneuropathy, unspecified, I10 - Essential (primary) hypertension, N18.30 - Chronic kidney disease, stage 3 unspecified Microalbumin, Random (w Creat) 6 Months E11.9 - Type 2 diabetes mellitus without complications, E78.5 - Hyperlipidemia, unspecified, G62.9 - Polyneuropathy, unspecified, I10 - Essential (primary) hypertension, N18.30 - Chronic kidney disease, stage 3 unspecified PSA,Total (Free>4and<10) 6 Months E11.9 - Type 2 diabetes mellitus without complications, E78.5 - Hyperlipidemia, unspecified, G62.9 - Polyneuropathy, unspecified, I10 - Essential (primary) hypertension, N18.30 - Chronic kidney disease, stage 3 unspecified Quality Reporting (2020) Depression/Bipolar (159/160/161/177) PHQ-9: Total score: 2 Coding Level of Care Code Medicare Subsequent (G0439) Diagnoses Neuropathy G62.9 HTN (hypertension) I10 Hyperlipidemia E78.5 CKD (chronic kidney disease) stage 3, GFR 30-59 ml/min N18.30 Chronic kidney disease stage 3 subtype: unspecified whether 3a or 3b Diabetes mellitus E11.9 CPT Codes Advance Care Planning - Advance Care Planning discussion: On file, no changes ([id number]) Advance Care Planning - Time spent: 1-15 minutes, on File ([id number]) Advance Care Planning Advance Care Planning discussion: On file, no changes Forms completed: Health Care Proxy Time spent: 1-15 minutes, on File
[2024-01-20 09:08] VITALS: BMI 26.9
== END 2024-01-20 09:40 | disposition home or self-care (01) ==
PROVIDERS: PCP Internal Medicine; Visit Provider Internal Medicine
DX: Z00.00 Encounter for general adult medical examination without abnormal findings (principal); I12.9 Hypertensive chronic kidney disease with stage 1 through stage 4 chronic kidney disease, or unspecified chronic kidney disease; N18.30 Chronic kidney disease, stage 3 unspecified; E11.22 Type 2 diabetes mellitus with diabetic chronic kidney disease; G62.9 Polyneuropathy, unspecified; E78.5 Hyperlipidemia, unspecified
CPT/HCPCS: 1123F; G0439

== ENCOUNTER 2024-01-20 09:33 | Outpatient (REF) | payer MEDICARE, OTHER, SELFPAY ==
[2024-01-20 14:05] LABS: Vitamin B12 330 pg/mL (200-900)
== END 2024-01-20 09:34 | disposition home or self-care (01) ==
LOC: HO.HMGCLDS 09:33
PROVIDERS: PCP Internal Medicine; Visit Provider Internal Medicine
DX: G62.9 Polyneuropathy, unspecified (principal)
CPT/HCPCS: 36415; 82607; 82746

== ENCOUNTER 2024-07-06 07:55 | Outpatient (REF) | payer MEDICARE, OTHER, SELFPAY ==
[2024-07-06 10:11] LABS: MANUAL DIFF FLAG NO
[2024-07-06 10:22] LABS: Basophils Percent Auto 0.7 % (0-2); Eosinophils Absolute Auto 0.1 X10*3/uL (0.0-0.4); Eosinophils Percent Auto 0.9 % (0-4); Hematocrit 46.4 % (42.0-52.0); Hemoglobin 16.1 g/dl (14.0-18.0); Imm Gran Abs Auto 0.05 X10*3/uL (0.00-0.03); Imm Gran Pct Auto 0.9 % (0.0-0.4); Lymphocytes Absolute Auto 1.4 X10*3/uL (1.2-4.9); Lymphocytes Percent Auto 25.2 % (20-40); Mean Corpuscular HGB Conc 34.7 g/dl (31.0-36.0); Mean Corpuscular Hemoglobin 30.1 pg (27.0-33.0); Mean Corpuscular Volume 86.9 fL (80.0-98.0); Mean Platelet Volume 10.5 fL (9.4-12.4); Monocytes Absolute Auto 0.5 X10*3/uL (0.1-1.2); Monocytes Percent Auto 9.8 % (2-11); Neutrophils Absolute Auto 3.5 x10*3/uL (2.0-8.3); Neutrophils Percent Auto 62.5 % (45-73); Platelet Count 127 X10*3/uL (160-400); Red Blood Count 5.34 X10*6/uL (4.60-5.80); Red Cell Distribution Width 12.6 % (11.0-16.0); White Blood Count 5.5 X10*3/uL (4.8-10.8)
[2024-07-06 10:40] LABS: Alanine Aminotransferase 21 U/L (0-40); Albumin Level 4.2 g/dL (3.5-5.0); Alkaline Phosphatase 72 U/L (39-117); Anion Gap 11 (12-20); Aspartate Amino Transferase 21 U/L (5-37); Bilirubin Total 0.7 mg/dL (0.0-1.0); Blood Urea Nitrogen 22 mg/dL (9-16); Calcium 8.8 mg/dL (8.4-10.2); Carbon Dioxide 26 mmol/L (22-29); Chloride 104 mmol/L (96-108); Cholesterol 139 mg/dL (<200); Estimated Average Glucose 148 mg/dL; Estimated Glomerular Filt Rate 56; Glucose Fasting 152 mg/dL (60-99); HDL Cholesterol 40 mg/dL (>40); Hemoglobin A1c % 6.8 % (<6.0); LDL Cholesterol Calculated 82 mg/dL (<100); Potassium 4.2 mmol/L (3.3-5.1); Sodium 137 mmol/L (135-145); Total Protein 7.5 g/dL (6.5-8.0); Triglycerides 87 mg/dL (<150)
[2024-07-06 10:48] LABS: Creatinine Urine 36.17 mg/dL; Microalbum/Creatinine Ratio Ur 16.5 ug/mg cr (<30)
--- OUTSIDE RECORDS SUMMARY | 2024-07-06 10:49 | XMS_ITS | Encounter Summary ---
Author Organization [facility] Address [address] [place] [id number] Care Team Providers Care Bullet Maker Name Role Phone Renetta Rangel MD Primary Care Provider [phone] Reason for Visit * Reason Comments Other Encounter Details Date Type Department Care Team ([facility] Contact Info) Description 07/17/2020 Telephone [facility] [place] [address] [phone] Jeff Jerez MD [address] [phone] Other Social History Tobacco Use Types Packs/Day Years Used Date Smoking Tobacco: Never Smokeless Tobacco: Never Alcohol Use Standard Drinks/Week Comments Yes 1 (1 standard drink = 0.6 oz pur e alcohol) occ Sex and Gender Information Value Date Recorded Sex Assigned at Male 05/16/2024 11:54 AM EST Gender Identity Male 05/16/2024 11:54 AM EST Sexual Orientation Not on file COVID-19 Exposure Response Date Recorded In the last month, have you been in contact with someone who was confirmed or suspected to have Coronavirus / COVID-19? No / Unsure 07/05/2020 9:52 AM EST documented as of this encounter Plan of Treatment Upcoming Encounters Date Type Department Care Team (Late Contact Info) Description 05/25/2025 10:15 AM EST Office Visit [facility] [address] [place] [phone] Jeff Jerez MD [address] [place] [phone] documented as of this encounter Visit Diagnoses Not on filedocumented in this encounter Care Teams Bullet Maker Relationship Specialty Start Date End Date Renetta Rangel MD [address] [place] [address] PCP - General 03/08/19 documented as of this encounter
--- OUTSIDE RECORDS SUMMARY | 2024-07-06 10:49 | XMS_ITS | Encounter Summary ---
Author Organization [facility] Address [address] [place], [place] [id number] Care Team Providers Care Patternmaker Grader Name Role Phone Renetta Rangel MD Primary Care Provider [phone] Reason for Visit * Reason Comments Results Request Encounter Details Date Type Department Care Team ([facility] st Contact Info) Description 04/28/2022 Telephone [facility] Urologic Surgery [address] [phone] Jeff Jerez MD [address] [phone] Results Request Social History Tobacco Use Types Packs/Day Years [...] Exposure Response Date Recorded In the last 10 days, have yo u been in contact with someone who was confirmed or suspected to have Coronavirus/COVID-19? No / Unsure 04/20/2022 10:24 AM EST documented as of this encounter Miscellaneous Notes * Telephone Encounter - Napoleon Morris LPN - 05/04/2022 9:54 AM EST [place] text message sent to Dr. Jerez regarding patient request for report on 04/20 pathology. documented in this encounter Plan of Treatment Upcoming Encounters Date Type Department Care Team (Late st Contact Info) Description 05/25/2025 10:15 AM EST Office Visit [facility] [place] [address] [place] [phone] Jeff Jerez MD [address] [phone] documented as of this encounter Visit Diagnoses Not on filedocumented in this encounter Care Teams Patternmaker Grader Relationship Specialty Start Date End Date Renetta Rangel MD [address] [place] [address] PCP - General 03/08/19 documented as of this encounter
--- OUTSIDE RECORDS SUMMARY | 2024-07-06 10:49 | XMS_ITS | Clinical Summary ---
Author Organization [facility] Address [address] [place] [id number] Care Team Providers Care Evp Sales Name Role Phone Renetta Rangel MD Primary Care Provider [phone] Allergies No known active allergies Medications Medication Sig Dispensed Refills Start Date End Date Status metFORMIN (GLUCOPHAGE) 500 MG tablet Take 1 tablet (500 mg total) by mouth once. Active glipiZIDE (GLUCOTROL XL) 2.5 MG 24 hr tablet Take 1 tablet (2.5 mg total) by mouth every morning with breakfast. Active OMEprazole (PriLOSEC) 20 MG capsule Take 1 capsule (20 mg total) by mouth every morning before breakfast. Active lisinopril (PRINIVIL,ZeSTRIL) 10 MG tablet Take 1 tablet (10 mg total) by mouth daily. Active simvastatin (ZOCOR) 20 MG tablet Take 1 tablet (20 mg total) by mouth nightly. Active amLODIPine (NORVASC) 10 MG tablet Take 1 tablet (10 mg total) by mouth daily. Active aspirin enteric coated (ECOTRIN LOW STRENGTH) 81 MG EC tablet Take 1 tablet (81 mg total) by mouth daily. Active gabapentin (NEURONTIN) 100 MG capsule 1 capsule (100 mg total) 3 (three) times a day. 12/30/2020 Active dapagliflozin 5 mg tablet Take 1 tablet (5 mg total) by mouth. 06/17/2022 Active atorvastatin (LIPITOR) 20 MG tablet Take 1 tablet (20 mg total) by mouth daily. 09/18/2022 Active dapagliflozin 10 MG tablet Take by mouth. 02/13/2023 Active dapagliflozin 10 MG tablet Take by mouth every morning. Active Active Problems Problem Noted Date Diagnosed Date Renal oncocytoma of right kidney 07/07/2019 Renal mass 04/21/2019 CKD (chronic kidney disease), stage III 04/21/20 19 Calculus of ureter 04/21/2019 Encounters Date Type Department Care Team Description 05/18/2024 2:15 PM EST Office Visit [facility] [place] [address] [place] [phone] Jeff Jerez MD Renal oncocytoma of right kidney (Primary Dx); Stage 3a chronic kidney disease (HCC) 05/18/2024 Travel 05/16/2024 Telephone [facility] [place] [address] [place] [phone] Jeff Jerez MD 05/09/2024 Orders Only [facility] [address] [place] [phone] Jeff Jerez MD 04/28/[address] [facility] Urologic Surgery [address] [place] [phone] Jeff Jerez MD from Last 3 Months Family History Medical History Relation Name Comments Kidney disease Father Relation Name Status Comments Father Mother Sister Alive Social History Tobacco Use Types Packs/Day Years Used Date Smoking Tobacco: Never Smokeless Tobacco: Never Tobacco Cessation:Counseling Given: Not Answered Alcohol Use Standard Drinks/Week Comments Yes 1 (1 standard drink = 0.6 oz pur e alcohol) occ Sex and Gender Information Value Date Recorded Sex Assigned at Male 05/16/2024 11:54 AM EST Gender Identity Male 05/16/2024 11:54 AM EST Sexual Orientation Not on file Last Filed Vital Signs Vital Sign Reading Time Taken Comments Blood Pressure 136/65 04/20/2022 2:00 PM EST Pulse 62 04/20/2022 2:00 PM EST Temperature 36.6 ??C (97.9 ??F) 04/20/2022 12:[address] Respiratory Rate 18 04/20/2022 2:00 PM EST Oxygen Saturation 97% 04/20/2022 2:00 PM EST Inhaled Oxygen Concentration - - Weight 97.5 kg (215 lb) 05/18/2024 2:08 PM EST Height 190.5 cm (6' 3 ) 05/18/2024 2:08 PM EST Body Mass Index 26.87 05/18/2024 2:08 PM EST Plan of Treatment Upcoming Encounters Date Type Department Care Team (Late st Contact Info) Description 05/25/2025 10:15 AM EST Office Visit [facility] [place] [address] [place] [phone] Jeff Jerez MD [address] [facility] [address] [place] [address] Health Maintenance Due Date Last Done Comments Hepatitis C Virus Screening 1945 DTaP/Tdap/Td Vaccines (1 - Tdap) 10/04/1966 Pneumococcal Vaccines 50+ (1 of 1 - PCV) 10/04/1997 Zoster (Shingles) Vaccine (1 of 2) 10/04/1997 RSV Vaccine 60 years and old er and Patients (1 - 1-dose 75+ series) 10/04/2022 Influenza Vaccine 01/06/2024 COVID-19 Vaccine ( - 2023-2 5 season) 2024 Hepatitis B Vaccines Aged Out No long er eligible based on patient's age to complete this topic Procedures Procedure Name Priority Date/Time Associated Diagnosis Comments CREATININE WITH EGFR Routine 05/22/2024 1:06 PM EST Renal oncocytoma of right kidney Stage 3a chronic kidney disease (HCC) POCT URINALYSIS DIPSTICK, AUTOMATED Routine 05/18/2024 2:14 PM EST Renal oncocytoma of right kidney MR ABDOMEN WITH AND WITHOUT CONTRAST Routine 05/09/2024 2:36 PM EST CREATININE WITH EGFR Routine 05/01/2024 9:32 AM EST Renal oncocytoma of right kidney Renal mass Stage 3a chronic kidney disease (HCC) from Last 3 Months Results * (ABNORMAL) Creatinine with eGFR (05/22/2024 1:06 PM EST) Only the most recent of2 resultswithin the time period is included. Creatinine 1.44(H) 0.70 - 1.28 mg/dL [facility] Creatinine w/ eGFR 50(L) > OR = 60 mL/min/1.7 3m2 [facility] Blood Blood specimen / Unknown 05/22/2024 1:06 PM EST 05/22/2024 1:06 PM EST Narrative [facility] - 05/23/2024 5:55 AM EST FASTING:NO FASTING: NO Jeff Jerez MD LAB BLOOD ORDERABLE [facility] [address] [place] [phone] * (ABNORMAL) POCT Urinalysis Dipstick, Automated (05/18/2024 2:14 PM EST) Source, UA Voided Color, UA Yellow Yellow & Clear, Yellow Clarity, UA Clear Clear Glucose, UA 250 (1/4)(A) Negative Bilirubin, UA Negative Negative Ketones, UA Negative Negative Spec Grav, UA 1.005 1.005, 1.010, 1.015, 1.020, 1.025 Blood, UA Negative Negative pH, UA 5.0 5.0, 5.5, 6.0, 6.5, 7.0, 7.5, 8.0 Protein, UA Negative Negative Urobilinogen, UA 0.2 0.2, 1.0 Nitrite, UA Negative Negative Leukocyte Esterase, UA Negative Negative Lot Number [id number] [employer] Pass Pass Urine 05/18/2024 2:14 PM EST Jeff Jerez MD POINT OF CARE TEST ORDERABLES * MR ABDOMEN WITH AND WITHOUT CONTRAST (05/09/2024 2:36 PM EST) Anatomical Region Laterality Modality Other 05/09/2024 2:15 PM EST 05/09/2024 2:15 PM EST Impressions 07/01/2024 5:28 PM EST 1. ??Stable 3 arterially enhancing masses identified within the right upper and lower poles as described above with the largest of which measuring 3.9 cm and again in keeping with the patients biopsy proven renal oncocytoma. No aggressive features to suggest renovascular invasion. Continued attention on follow-up is advised. 2. ??Additional various incidental findings as above. Electronically signed by: ??Brad [place] MD ??07/01/2024 05:28 PM EST RP Thank you for referring your patient to us, Brad Bradley [id number] (Electronically Signed - 07/01/2024 17:28) Narrative 07/01/2024 5:28 PM EST MR ABDOMEN WITH AND WITHOUT CONTRAST 05/09/2024 1:15 PM ARTIST AGENT CLINICAL HISTORY: Male, 78 years old. Biopsy-proven right renal oncocytoma ??Benign neoplasm of right kidney; Other specified disorders of kidney and ureter; Chronic kidney disease, stage 3a. Order History: mri abdomen w/wo renal oncocytoma of right kidney; Patient States: cyst of right kidney, no symptoms; Contrast: 10ml of gadavist power injected 22gRAC [id number] 02/2028; Adverse Contrast Reaction: NO; Additional Notes: prior ct and mri jrad COMPARISON: CT abdomen from 05/03/2023 PROCEDURE COMMENTS: Multiplanar, multisequence MRI of the abdomen was performed. Postcontrast images were obtained following the uneventful intravenous administration of gadobutrol (Gadavist) gadolinium containing contrast. Unless otherwise stated, incidental findings identified in this report do not require routine follow-up. FINDINGS: Lung bases: Lung bases are clear. No pleural or pericardial effusion. Heart is normal Liver: Measures 14.5 cm in greatest craniocaudal dimension. Liver is normal in morphology and signal intensity. No significant iron deposition or hepatic steatosis. No focal liver lesions are identified. Conventional hepatic arterial anatomy is present. Hepatic, portal, and superior mesenteric veins are patent. Biliary: No intra- or extrahepatic biliary dilatation. ??Gallbladder: Normal ? Pancreas: Normal T1 hyperintense signal within the pancreatic parenchyma. No ductal dilatation. Adrenal glands: Normal. Kidneys: Symmetric bilateral enhancement and excretion. No hydronephrosis. Again seen are 3 heterogeneously enhancing renal masses specifically in the right kidney. These are in keeping with a biopsy-proven renal oncocytoma originally identified on 05/17/2019. In the right lower pole there is a 3.9 x 3.6 cm mass (4:24). Additionally the right lower pole, immediately adjacent lesion in the right lower pole is a 1.7 x 1.7 cm enhancing mass (4:22). This is also unchanged when compared to the prior examination. Finally a third 2.1 x 2.2 cm enhancing mass in the right upper pole anteriorly (4:16). Simple cyst identified within the left kidney. No new enhancing renal masses identified on examination. None of these lesions demonstrate aggressive features including extension into the renal sinus fat, through the pararenal fascia or renal vein tumor thrombus. Spleen: Normal. 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 Bowel: Visualized bowel demonstrate no evidence of wall thickening or obstruction. Vasculature: Visualized aorta is normal in caliber. IVC is patent. Lymph nodes: No pathologically enlarged lymph nodes in the abdomen. Peritoneal space: No free fluid in the abdomen. Musculoskeletal: Bone marrow signal is within normal limits. Mild degenerative changes of the mid to lower lumbar spine. Procedure Note Brad [place] MD - 07/01/2024 MR ABDOMEN WITH AND WITHOUT CONTRAST 05/09/2024 1:15 PM ARTIST AGENT CLINICAL HISTORY: Male, 78 years old. Biopsy-proven right renal oncocytomaBenign neoplasm of right kidney; Other specified disorders of kidney andureter; Chronic kidney disease, stage 3a. Order History: mri abdomen w/worenal oncocytoma of right kidney; Patient States: cyst of right kidney, no symptoms; Contrast: 10mlof gadavist power injected 22gRAC [id number] 02/2028; Adverse ContrastReaction: NO; Additional Notes: prior ct and mri jrad COMPARISON: CT abdomen from 05/03/2023 PROCEDURE COMMENTS: Multiplanar, multisequence MRI of the abdomen wasperformed. Postcontrast images were obtained following the uneventfulintravenous administration of gadobutrol (Gadavist) gadolinium containingcontrast. Unless otherwise stated, incidental findings identified in this report do not require routinefollow-up. FINDINGS: Lung bases: Lung bases are clear. No pleural or pericardial effusion.Heart is normal Liver: Measures 14.5 cm in greatest craniocaudal dimension. Liver isnormal in morphology and signal intensity. No significant iron depositionor hepatic steatosis. No focal liver lesions are identified. Conventionalhepatic arterial anatomy is present. Hepatic, portal, and superior mesenteric veins are patent. Biliary: No intra- or extrahepatic biliary dilatation. Gallbladder:Normal Pancreas: Normal T1 hyperintense signal within the pancreatic parenchyma.No ductal dilatation. Adrenal glands: Normal. Kidneys: Symmetric bilateral enhancement and excretion. No hydronephrosis.Again seen are 3 heterogeneously enhancing renal masses specifically inthe right kidney. These are in keeping with a biopsy-proven renaloncocytoma originally identified on 05/17/2019. In the right lower pole there is a 3.9 x 3.6 cm mass (4:24).Additionally the right lower pole, immediately adjacent lesion in theright lower pole is a 1.7 x 1.7 cm enhancing mass (4:22). This is alsounchanged when compared to the prior examination. Finally a third 2.1 x 2.2 cm enhancing mass in the rightupper pole anteriorly (4:16). Simple cyst identified within the leftkidney. No new enhancing renal masses identified on examination. None ofthese lesions demonstrate aggressive features including extension into the renal sinus fat, through thepararenal fascia or renal vein tumor thrombus. Spleen: Normal. Small splenic artery aneurysm measuring 1.2 cm regional tothe splenic hilum. Bowel: Visualized bowel demonstrate no evidence of wall thickening orobstruction. Vasculature: Visualized aorta is normal in caliber. IVC is patent. Lymph nodes: No pathologically enlarged lymph nodes in the abdomen. Peritoneal space: No free fluid in the abdomen. Musculoskeletal: Bone marrow signal is within normal limits. Milddegenerative changes of the mid to lower lumbar spine. IMPRESSION: 1. Stable 3 arterially enhancing masses identified within the right upperand lower poles as described above with the largest of which measuring 3.9cm and again in keeping with the patients biopsy proven renal oncocytoma.No aggressive features to suggest renovascular invasion. Continued attention on follow-up isadvised. 2. Additional various incidental findings as above. Electronically signed by: Brad [place] MD 07/01/2024 05:28 PM EST RPWorkstation: [id number] Thank you for referring your patient to us, Brad Bradley [id number] (Electronically Signed - 07/01/2024 17:28) Jeff Jerez MD G [employer] PROCEDUR ES from Last 3 Months Care Teams Evp Sales Relationship Specialty Start Date End Date Renetta Rangel MD [address] [place] [phone] PCP - General 03/08/19
--- OUTSIDE RECORDS SUMMARY | 2024-07-06 10:49 | XMS_ITS ---
Author Organization [facility] Address [address] [place] [address] Care Team Providers Care Rn Hematology Name Role Phone Renetta Rangel MD Primary Care Provider Edy Fonseca Unavailable [phone] Allergies No Known Allergies REASON FOR VISIT At Risk Footcare, Ingrown Nail Medications Medication SIG (Take, Route, Frequency, Duration) Notes Start Date End Date Status Tradjenta 5 MG Oral for 30 Not -Taking glipiZIDE 5 MG 1 tablet Orally Once a day Not-Taking Gabapentin Not-Takin g Doxycycline Hyclate Not-Taking Simvastatin 20 MG (Prior Auth: Rx Ref#:[id number]) Oral for 90 Not-Taking Extra Depth Orthopedic Shoes (1 Pair) with Customized Heat Molded Multidensity Innersoles (3 Pair) as directed Dx: NIDDM/Polyneuropathy (E11.42), Hammertoe Foot Deformity (M20.41,M20.42), Preulcerative Skin Lesion(s) (L85.1 08/11/2023 Active Omeprazole 20 MG 1 capsule Orally Onc e a day 02/28/2015 Active metFORMIN HCl 500 MG 1 tablet with meals Orally Twice a day Active Lisinopril 10 MG (Prior Auth: Rx Ref#:[id number]) Oral for 90 Active Farxiga Active Atorvastatin Calcium Active Ammonium Lactate 12 % 1 application to affected area Externally Twice a day to dry areas of skin on feet for 30 days 11/18/2016 Active amLODIPine Besylate 10 MG 1 tablet Orally Once a day 02/28/2015 Active Social History Tobacco Use: Social History Observation Description Date Details (start date - stop date) Never Smoker NA - NA Tobacco Use/Smoking Question Answer Notes Are you a: nonsmoker Additional Findings: Tobacco Non-User Current no n-smoker Alcohol Screen Question Answer Notes Did you have a drink containing alcohol in the p ast year? Yes Points 0 Interpretation Negative Tobacco use other than smoking: Question Answer Notes Are you an other tobacco user? No Vital Signs Height 6ft 3in in 02/09/2024 Weight 220 lbs 02/09/2024 BMI 27.5 kg/m2 02/09/2024 Procedures Procedure Date Ordered Date Performed Result Body Sit e 47225-DCZCKFV NAIL, 6 OR MORE 02/09/2024 N/A 06271-Vkzthyil Plate 02/09/2024 N/A 39709-PVBT SKIN LESIONS, OVER 4 02/09/2024 N/A Encounters Encounter Location Date Provider Diagnosis [facility] [address] [place] [phone] 02/09/2024 Edy Ann Type 2 diabetes mellitus with diabetic polyneuropathy E11.42 ; Tinea unguium B35.1 and Ingrown nail L60.0 Assessments Encounter Date Diagnosis (ICD Code) Assessment Notes Treatment Notes Treatment Clinical Notes Section Notes 02/09/2024 Type 2 diabetes mellitus with diabetic polyneuropathy (ICD-10 - E11.42) 02/09/2024 Tinea unguium (ICD-10 - B35.1) 02/09/2024 Ingrown nail (ICD-10 - L60.0) Plan Of Treatment Pending Test Test Name Order Date 55046-SSRYYSX NAIL, 6 OR MORE 02/09/2024 47089-Jpdoeomu Plate 02/09/2024 39633-ARKE SKIN LESIONS, OVER 4 02/09/20 24 Next Appt Details Follow Up: prn, Reason: Provider Name:Edy Ann , 08/10/2024 09:30:00 AM, [address] [facility], [address] [facility], [place], [address], Procedure Notes * Category Sub-Category Detail Notes Nail Avulsion Procedure A fine sterile e levator was placed between the eponychium, nail fold, and nail plate to separate the structures. A sterile nail splitter, and/or sterile 316 blade, was then used to longitudinally section the nail along its entire length through the eponychium to the area under the nail fold. The offending portion of nail was from the nail bed with a rolling action and then removed with a hemostat. No underlying bone was identified. There was minimal bleeding as hemostasis was achieved through the temporary use of either a digital tourniquet or the aforementioned local with epinephrine. A bacitracin sterile dressing was applied. Local wound aftercare instructions were discussed and dispensed. The patient was informed of both conservative and future surgical procedures to prevent recurrence. Tylenol or Motrin was recommended for pain or discomfort (35657) , DIABETES: Pt was advised as to the risk of delayed or nonhealing due to diabetes. Pt is to call the office with any questions, concerns, or complications Anesthesia was deferred - NEURO ARABELLA: patient has medically documented neuropathic condition affecting sensation Location Lateral nail border , TA Debride Nail 6-10 Nail debridement Performance o f this nail treatment by a nonprofessional would put this patients foot and overall health at risk. Therefore, nail debridement was performed extensively to reduce/remove overall nail length, girth, thickness, subungual debris, and necrotic tissue, by manual and/or electrical means through the use of a nail nipper and/or dremel-type plate grinder, to a more viable healthy nail plate or bed tissue 6-10. Silver nitrate used for any petechial bleeding as necessary. Definitive antifungal treatment options have been reviewed and discussed with the patient. The patient chooses, no pharmaceutical tx - 44902 Keratoma Treatment Parring or Cutting o f Benign Hyperkeratotic Lesion(s) More than 4 Lesions (-57) - The Benign hyperkeratotic lesions, as described above were pared, and/or cut utilizing a sterile 15 blade, tissue nippers, and/or dremel - 65305 Progress Notes * eKvin LINDO MDOB: (78 yo M)Acc No.[id number]:02/09/2024 Progress Note Patient:?HankOtilio kendrickel Mckenna Provider:?Edy Ann DPM :1945???Age:78 Y???Sex:Male Socrates e:02/09/2024 Address[address] [id number] Pcp:Renetta Rangel MD Subjective: * Chief Complaints: * ???At Risk FootcareIngrown N ail * HPI: ???At Risk footcare:?Pt States Last PCP Visit:?Date?01/20/2024 ???Toe pain:?Treatments:?Rx shoes , states still needs - they havent called me for them yet .? * ROS:?General/Constitutional:?Nausea?denies.?Vomiting?denies.?Hunger Thirst?denies.?Loss appetite?denies.?Chills?denies.?Fatigue?denies.?Fever?denies.?Night Sweats?denies.?Unexplained weight loss?denies.?Ophthalmologic:?Blurred vision?denies.?Red eye?denies.?HEENTM:?Dentures?denies.?Dizziness?denies.?Glasses/contacts?admits.?Retinopathy?de nies.?Blurred/double vision?denies.?TMJ?denies.?Discharge/drainage?denies.?Implants?denies.?Hard of hearing admits.?Difficulty chewing/swallowing/speaking?denies.?Nose bleeds?denies.?Sore mouth?denies.?Swollen glands?denies.?Respiratory:?On Oxygen?denies.?Pneumonia/pleurisy?denies.?Bronchitis?denies.?Emphysema?denies.?C oughing?denies.?Cough blood?denies.?Shortness of breath?denies.?Wheezing?denies.?Cardiovascular:?Pacemaker?denies.?MVP?denies.?WPW?denies.?CHF?denies.?Heart attack?denies.?Septal defect?denies.?Rapid beat?denies.?Chest pain ?denies.?Atrial Fib.?denies.?Murmur/Palpitations?denies.?Gastrointestinal:?Hemorrhoids?denies.?Stomach/Abdominal pain?denies.?Dark blood stool?denies.?Irritable bowel ?denies.?Constipation?denies.?Diarrhea?admits.?Vomiting?denies.?Hematology:?Swelling?admits.?Bruising?denies.?Bleeding problem?denies.?Genitourinary:?Blood urine?denies.?Frequent/Painfu/urination/bladder control?denies.?Kidney stones?denies.?Infection (UTI)?denies.?Nephropathy?denies.?Musculoskeletal:?Hammertoes?admits.?Bunions?denies.?Scoliosis/kyphosis?denies.?Muscle cramps / walking?denies.?Generalized aches and pains?denies.?Weakness?denies.?Integ.:?Gan?denies.?Scars?denies.?Corns/calluses?admits.?Ingrown nails?admits.?Painful nails?denies.?Rashes?denies.?Neurologic:?Difficulty sleeping?denies.?Bipolar?denies.?Brain disorder?denies.?Balance trouble?denies.?Confusion?denies.?Fainting/blackouts?denies.?Headache?denies.?Tr emors?denies.? * Medical History:? * Surgical History:?tonsillect beatris rotator cuff tear repair 11/29/17[facility] biopsy kidney 05/2019 * Hospitalization/Major Diagno stic Procedure:?[facility] rotator cuff surgery left arm 11/29/17[facility] Kidney stone 01/14/19[facility]- pneumonia 09/2020[facility] biopsy kidney 04/20/22[facility]- heart monitor, 2 days 09/2022 * Family History:?Mother: dece ased, diagnosed with Unspecified essential hypertension, Unspecified heart disease.?Father: .?Daughter(s): alive.?Spouse: alive.?1 son(s) , 1 daughter(s) - healthy. .? * Social History:?Tobacco Use:?Tobacco Use/Smoking?Are you a:?nonsmoker ?Additional Findings: Tobacco Non-User?Current non-smoker ?Tobacco use other than smoking?Are you an other tobacco user??No ???Drugs/Alcohol:?Drugs?Have you used drugs other than those for medical reasons in the past 12 months??No ?Alcohol Screen?Did you have a drink containing alcohol in the past year??Yes ?Points?0 ?Interpretation?Negative ???Miscellaneous:?Caffeine: yes, 1 cup per day. ?Children: yes, 2. ?Exercise: yes, walking, gardening/yard work. ?Living with: spouse. ?Marital status: . ?Occupation: retired. * Medications:?TakingamLODIPin e Besylate 10 MG Tablet 1 tablet Orally Once a dayAmmonium Lactate 12 % Cream 1 application to affected area Externally Twice a day to dry areas of skin on feetAtorvastatin Calcium Farxiga Lisinopril 10 MG Tablet (Prior Auth: Rx Ref#:[id number]) Oral metFORMIN HCl 500 MG Tablet 1 tablet with meals Orally Twice a dayOmeprazole 20 MG Capsule Delayed Release 1 capsule Orally Once a dayExtra Depth Orthopedic Shoes (1 Pair) with Customized Heat Molded Multidensity Innersoles (3 Pair) as directed Dx: NIDDM/Polyneuropathy (E11.42), Hammertoe Foot Deformity (M20.41,M20.42), Preulcerative Skin Lesion(s) (L85.1Taking amLODIPine Besylate 10 MG Tablet 1 tablet Orally Once a dayTaking Ammonium Lactate 12 % Cream 1 application to affected area Externally Twice a day to dry areas of skin on feetTaking Atorvastatin Calcium Taking Farxiga Taking Lisinopril 10 MG Tablet (Prior Auth: Rx Ref#:[id number]) Oral Taking metFORMIN HCl 500 MG Tablet 1 tablet with meals Orally Twice a dayTaking Omeprazole 20 MG Capsule Delayed Release 1 capsule Orally Once a dayTaking Extra Depth Orthopedic Shoes (1 Pair) with Customized Heat Molded Multidensity Innersoles (3 Pair) as directed Dx: NIDDM/Polyneuropathy (E11.42), Hammertoe Foot Deformity (M20.41,M20.42), Preulcerative Skin Lesion(s) (L85.1Not-Taking/PRNSimvastatin 20 MG Tablet (Prior Auth: Rx Ref#:[id number]) Oral Doxycycline Hyclate Gabapentin glipiZIDE 5 MG Tablet 1 tablet Orally Once a dayTradjenta 5 MG Tablet Oral Medication List reviewed and reconciled with the patientNot-Taking/PRN Simvastatin 20 MG Tablet (Prior Auth: Rx Ref#:[id number]) Oral Not-Taking/PRN Doxycycline Hyclate Not-Taking/PRN Gabapentin Not-Taking/PRN glipiZIDE 5 MG Tablet 1 tablet Orally Once a dayNot-Taking/PRN Tradjenta 5 MG Tablet Oral Medication List reviewed and reconciled with the patient * Allergies:?N.K.D.A.yes[Aller gies Verified] Objective: * Vitals:?Ht: 6ft 3in, Wt: 220 , BMI: 27.5, Shoe size: 11, BS: did not test, Ht-cm: 190.5 cm, Wt-k.79 kg. * ???Past Orders: ???Lab:HEMOGLOBIN A1C (GLYCO HEMOGLOBIN) (Order Date - 01/20/2024) (Collection Date - 01/20/2024) ? Value Reference Range ?HEMOGLOBIN A1C % (HH) 6.0 * Examination: ???Neurological: ?SENSORY:?Neurological exam demonstrates, reduced light touch sensation, reduced sharp/dull discrimination lower extremity, reduced vibration lower extremity, plantar aspects, B/L, 5.07 monofilament test performed at plantar aspects of 5 varied sites per foot shows sensation, reduced, B/L.?Nails: ?NAILS are:?Elongated, overgrown, dystrophic, lytic, greater than 3mm thick, discolored and friable with crumbly malodorous subungual debris, 1-5 B/L.?Dermatologic: ?SKIN FINDINGS:?Skin exam reveals Keratotic lesion(s) located at, Medial, Plantar, T2, Medial plantar, IPJ, T5, SUB MTH (s), 1, B/L, Heel, B/L.?Ingrown Nail: ?INSPECTION:?Reveals nail incurvation, dull pain on palpation due to neuropathy, groove hypertrophy , Lateral nail border , TA.? Assessment: * Assessment: 1.?Type 2 diabetes mellitus with diabetic polyneuropathy - E11.42 (Primary)?2.?Tinea unguium - B35.1?3.?Ingrown nail - L60.0, Lateral nail border , TA? Plan: * Treatment: 2.?Ingrown nail?Procedure: 66690-Kxhlexdm Plate * Procedures:?Debride Nail 6-10:?Nail debridement?Performance of this nail treatment by a nonprofessional would put this patients foot and overall health at risk. Therefore, nail debridement was performed extensively to reduce/remove overall nail length, girth, thickness, subungual debris, and necrotic tissue, by manual and/or electrical means through the use of a nail nipper and/or dremel-type plate grinder, to a more viable healthy nail plate or bed tissue 6-10. Silver nitrate used for any petechial bleeding as necessary. Definitive antifungal treatment options have been reviewed and discussed with the patient. The patient chooses, no pharmaceutical tx - 78663.?Keratoma Treatment:?Parring or Cutting of Benign Hyperkeratotic Lesion(s)?More than 4 Lesions (-57) - The Benign hyperkeratotic lesions, as described above were pared, and/or cut utilizing a sterile 15 blade, tissue nippers, and/or dremel - 16846.?Nail Avulsion:?Location?Lateral nail border?,?TA.?Anesthesia?was deferred - NEUROPATHY: patient has medically documented neuropathic condition affecting sensation.?Procedure?A fine sterile elevator was placed between the eponychium, nail fold, and nail plate to separate the structures. A sterile nail splitter, and/or sterile 316 blade, was then used to longitudinally section the nail along its entire length through the eponychium to the area under the nail fold. The offending portion of nail was from the nail bed with a rolling action and then removed with a hemostat. No underlying bone was identified. There was minimal bleeding as hemostasis was achieved through the temporary use of either a digital tourniquet or the aforementioned local with epinephrine. A bacitracin sterile dressing was applied. Local wound aftercare instructions were discussed and dispensed. The patient was informed of both conservative and future surgical procedures to prevent recurrence. Tylenol or Motrin was recommended for pain or discomfort (89987) , DIABETES: Pt was advised as to the risk of delayed or nonhealing due to diabetes. Pt is to call the office with any questions, concerns, or complications.? * Procedure Codes:?08502 DEBRI DE NAIL, 6 OR MORE, Modifiers: XS 97328 Avulsion Plate, Modifiers: XS , [id number] TRIM SKIN LESIONS, OVER 4, Modifiers: XS * Follow Up:?prn * Images: * Sign off status: Completed true * Provider:?Edy Ann DPM Date:?2023 Generated for Tiffani domínguez/Cedrick/Annie on:?07/06/2024 10:49 AM EST History and Physical Notes * HPI (History of Present Illness) Category Sub-Category Detail Notes Category Not es Toe pain Treatments: Rx shoes , state s still needs - they havent called me for them yet At Risk footcare Pt States Last PCP Visit: Date: 4 Examination Category Sub-Category Detail Notes Category Not es Ingrown Nail INSPECTION: Reveals nail inc urvation, dull pain on palpation due to neuropathy, groove hypertrophy , Lateral nail border , TA Neurological SENSORY: Neurological exa m demonstrates, reduced light touch sensation, reduced sharp/dull discrimination lower extremity, reduced vibration lower extremity, plantar aspects, B/L, 5.07 monofilament test performed at plantar aspects of 5 varied sites per foot shows sensation, reduced, B/L Dermatologic SKIN FINDINGS: Skin exam reveal s Keratotic lesion(s) located at, Medial, Plantar, T2, Medial plantar, IPJ, T5, SUB MTH (s), 1, B/L, Heel, B/L Nails NAILS are: Elongated, overg rown, dystrophic, lytic, greater than 3mm thick, discolored and friable with crumbly malodorous subungual debris, 1-5 B/L
--- OUTSIDE RECORDS SUMMARY | 2024-07-06 10:49 | XMS_ITS ---
Author Name [facility] Organization Unknown History of Medication Use Medication Directions Dispensed Refills Start Date End Date Stat us OMEprazole (PriLOSEC) 20 MG capsule Take 1 capsule (20 mg total) by mouth every morning before breakfast. active lisinopril (PRINIVIL,ZeSTRIL) 10 MG tablet Take 1 tablet (10 mg total) by mouth daily. active simvastatin (ZOCOR) 20 MG tablet Take 1 tablet (20 mg total) by mouth nightly. 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
--- OUTSIDE RECORDS SUMMARY | 2024-07-06 10:50 | XMS_ITS | Encounter Summary ---
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 Name Role Phone Renetta Rangel MD Primary Care Provider [phone] Encounter Details Date Type Department Care Team (Late Contact Info) Description 03/09/2019 Scanned Document [facility] [place] [address] [place] [phone] Provider, MD Sun [address] [place] [phone] Social History Tobacco Use Types Packs/Day Years Used Date Smoking Tobacco: Never Assessed Sex and Gender Information Value Date Recorded Sex Assigned at Male 05/16/2024 11:54 AM EST Gender Identity Male 05/16/2024 11:54 AM EST Sexual Orientation Not on file documented as of this encounter Plan of Treatment Upcoming Encounters Date Type Department Care Team (Late Contact Info) Description 05/25/2025 10:15 AM EST Office Visit [facility] [address] [address] [place] [phone] Jeff Jerez MD [address] [address] documented as of this encounter Visit Diagnoses Not on filedocumented in this encounter Care Teams Auto Mechanics Teacher Relationship Specialty Start Date End Date Renetta Rangel MD [address] [place] [id number] PCP - General 03/08/19 documented as of this encounter
--- OUTSIDE RECORDS SUMMARY | 2024-07-06 10:50 | XMS_ITS ---
Author Organization [facility] Address [address] [place] [address] Care Team Providers Care Supervisor Sawing And Assembly Name Role Phone Renetta Rangel MD Primary Care Provider Edy Fonseca Unavailable [phone] Allergies No Known Allergies REASON FOR VISIT At Risk Footcare, Possible Infection, Painful Toe/Nail(s) Medications Medication SIG (Take, Route, Frequency, Duration) Notes Start Date End Date Status Omeprazole 20 MG 1 capsule Orally Onc e a day 02/28/2015 Active Doxycycline Hyclate Not-Taking Simvastatin 20 MG (Prior Auth: Rx Ref#:[id number]) Oral for 90 Not-Taking Gabapentin Not-Takin g Extra Depth Orthopedic Shoes (1 Pair) with Customized Heat Molded Multidensity Innersoles (3 Pair) as directed Dx: NIDDM/Polyneuropathy (E11.42), Hammertoe Foot Deformity (M20.41,M20.42), Preulcerative Skin Lesion(s) (L85.1 08/11/2023 Active metFORMIN HCl 500 MG 1 tablet with meals Orally Twice a day Active Atorvastatin Calcium Active Ammonium Lactate 12 % 1 application to affected area Externally Twice a day to dry areas of skin on feet for 30 days 11/18/2016 Active Lisinopril 10 MG (Prior Auth: Rx Ref#:[id number]) Oral for 90 Active Farxiga Active Tradjenta 5 MG Oral for 30 Not -Taking amLODIPine Besylate 10 MG 1 tablet Orally Once a day 02/28/2015 Active glipiZIDE 5 MG 1 tablet Orally Once a day Not-Taking Social History Tobacco Use: Social History Observation [...] No Vital Signs Height 6ft 3in in 11/10/2023 Weight 225 lbs 11/10/2023 BMI 28.12 kg/m2 11/10/2023 Procedures Procedure Date Ordered Date Performed Result Body Sit e 34507-ALRDKUP NAIL, 6 OR MORE 11/10/2023 N/A 37376 I&D ABSCESS- SIMPLE,SINGLE 11/10/2023 N/A 35295-MBXP SKIN LESIONS, OVER 4 11/10/2023 N/A Encounters Encounter Location Date Provider Diagnosis [facility] [address] [address] 11/10/2023 Edy Ann Type 2 diabetes mellitus with diabetic polyneuropathy E11.42 ; Tinea unguium B35.1 ; Abscess of toe, left L02.612 and Subungual hematoma of right foot, initial encounter S90.221A Assessments Encounter Date Diagnosis (ICD Code) Assessment Notes Treatment Notes Treatment Clinical Notes Section Notes 11/10/2023 Type 2 diabetes mellitus with diabetic polyneuropathy (ICD-10 - E11.42) 11/10/2023 Tinea unguium (ICD-10 - B35.1) 11/10/2023 Abscess of toe, left (ICD-10 - L02.612) Patient Educated with: WOUND CARE INSTRUCTIONS. pdf (WOUND CARE INSTRUCTIONS. pdf) 11/10/2023 Subungual hematoma of right foot, initial encounter (ICD-10 - S90.221A) 11/10/2023 Other Plan Of Treatment Treatment Notes Assessment Notes Abscess of toe, left Patient Educated wi th: WOUND CARE INSTRUCTIONS.pdf (WOUND CARE INSTRUCTIONS.pdf) Pending Test Test Name Order Date 77882-YCDQYBF NAIL, 6 OR MORE 11/10/2023 27189 I&D ABSCESS- SIMPLE,SINGLE 024 71754-YMYC SKIN LESIONS, OVER 4 11/10/19 24 Next Appt Details Follow Up: prn, Reason: Provider Name:Edy V Seth , 08/10/2024 09:30:00 AM, [address] [facility], [address], [place], [address], Procedure Notes * Category Sub-Category Detail Notes Debride Nail 6-10 Nail debridement Nail debridem ent performed extensively to reduce/remove overall nail length, girth, thickness, subungual debris, and necrotic tissue, by manual and electrical means through the use of a nail nipper and/or dremel, to more viable healthy nail plate or bed tissue 1-5. Silver nitrate used for any petechial bleeding as necessary. Patient chooses, no pharmaceutical tx (53134) I&D nail abscess Location TA , As per exa m Procedure Performed incision a nd drainage of Subungual Abscess. Incised and Drained involved toenail with sterile nipper and curettaged infected devitalized tissue to healthy bleeding bed. Approximately 0.1cc purulent fluid material was drained. Any granuloma present was removed at this time. No underlying bone was visualized. There was minimal bleeding as hemostasis was achieved through the temporary use of either a digital tournaquet or the aforementioned local with epinephrine. Application of sterile Bacitracin dressing performed. Local wound care instructions discussed and dispensed. Recommended Tylenol or Motrin for pain/discomfort (67614) , DIABETES: Pt was advised as to the risk of delayed or nonhealing due to diabetes. Pt is to call the office with any questions, concerns, or complications Type Subungual abscess Anesthesia was deferred - NEURO ARABELLA: patient has medically documented neuropathic condition affecting sensation Keratoma Treatment Parring or Cutting o f Benign Hyperkeratotic Lesion(s) 17892 ( >4 Lesions) - The Benign hyperkeratotic lesions, as described above were pared, and/or cut utilizing a sterile #15 blade, tissue nippers, and/or dremel Progress Notes * Kevin LINDO MDOB: (78 yo M)Acc No.[id number]:11/10/2023 Progress Note Patient:?Kevin Lindo Provider:?Edy Ann DPM :1945???Age:78 Y???Sex:Male Socrates e:11/10/2023 Address: [address] [id number] Pcp:Renetta Rangel MD Subjective: * Chief Complaints: * ???At Risk FootcarePossible InfectionPainful Toe/Nail(s) * HPI: ???At Risk footcare:?Pt States Last PCP Visit:?Date?08/16/2023 ???Toe pain:?Treatments:?Rx shoes , states still needs - next appt end of December.?Painful Nails:?Duration:?States Possible Date Of Injury - 11/06/23.? * ROS:?General/Constitutional:?Nausea?denies.?Vomiting?denies.?Hunger Thirst?denies.?Loss appetite?denies.?Chills?denies.?Fatigue?denies.?Fever?denies.?Night Sweats?denies.?Unexplained weight loss?denies.?Ophthalmologic:?Blurred [...] cuff surgery left arm 11/29/17[facility] Kidney stone 01/14/19[facility] [place] [facility]- pneumonia 09/2020[facility] biopsy kidney 04/20/22[facility] [place] [facility]- heart monitor, 2 days 09/2022 * Family [...] Lisinopril 10 MG Tablet (Prior Auth: Rx Ref#:[id number]) Oral metFORMIN HCl 500 MG Tablet 1 [...] Lisinopril 10 MG Tablet (Prior Auth: Rx Ref#:[id number]) Oral Taking metFORMIN HCl 500 MG Tablet 1 tablet with meals Orally Twice a dayTaking Omeprazole 20 MG Capsule Delayed Release 1 capsule Orally Once a dayTaking Extra Depth Orthopedic Shoes (1 Pair) with Customized Heat Molded Multidensity Innersoles (3 Pair) as directed Dx: NIDDM/Polyneuropathy (E11.42), Hammertoe Foot Deformity (M20.41,M20.42), Preulcerative Skin Lesion(s) (L85.1Not-Taking/PRNSimvastatin 20 MG Tablet (Prior Auth: Rx Ref#:[id number]) Oral Doxycycline Hyclate Gabapentin glipiZIDE 5 MG Tablet 1 tablet Orally Once a dayTradjenta 5 MG Tablet Oral Medication List reviewed and reconciled with the patientNot-Taking/PRN Simvastatin 20 MG Tablet (Prior Auth: Rx Ref#:[id number]) Oral Not-Taking/PRN Doxycycline Hyclate Not-Taking/PRN Gabapentin Not-Taking/PRN glipiZIDE 5 MG Tablet 1 tablet Orally Once a dayNot-Taking/PRN Tradjenta 5 MG Tablet Oral Medication List reviewed and reconciled with the patient * Allergies:?N.K.D.A.yes[Aller gies Verified] Objective: * Vitals:?Ht: 6ft 3in, Wt: 225 , BMI: 28.12, Shoe size: 11, BS: did not test, Ht- cm: 190.5 cm, Wt-k.06 kg. * ???Past Orders: ???Lab:HEMOGLOBIN A1C (GLYCO HEMOGLOBIN) (Order Date - 11/10/2023) (Collection Date - 11/10/2023) ? Value Reference Range ?HEMOGLOBIN A1C % [...] with crumbly malodorous subungual debris, 1-5 B/L , There is evidence of pain on palpation, and an area of SUBUNGUAL HEMORRHAGIC fluid with a pre-operative size measuring approximately ( 3-4 ) mm square, T6.?Dermatologic: ?SKIN FINDINGS:?Skin exam reveals Keratotic lesion(s) located at, Medial, Plantar, T2, Medial plantar, IPJ, T5, SUB MTH (s), 1, B/L, Heel, B/L.?Abscess/infected nail: ?INSPECTION?Reveals Subungual Abscess with nail fluctuance, mild localized erythema, and yellow purulent fluid with pre-operative size approximately ( 1-2 ) mm square, but without exposed bone , TA.? Assessment: * Assessment: 1.?Type 2 diabetes mellitus with diabetic polyneuropathy - E11.42 (Primary)?2.?Tinea unguium - B35.1?3.?Abscess of toe, left - L02.612?4.?Subungual hematoma of right foot, initial encounter - S90.221A, Acute problem, Uncomplicated (3)? Plan: * Treatment: 2.?Abscess of toe, left?Procedure: 69935 I&D ABSCESS- SIMPLE,SINGLE Notes: Patient Educated with: WOUND CARE INSTRUCTIONS.pdf (WOUND CARE INSTRUCTIONS.pdf)?? * Procedures:?Debride Nail 6-10:?Nail debridement?Nail debridement performed extensively to reduce/remove overall nail length, girth, thickness, subungual debris, and necrotic tissue, by manual and electrical means through the use of a nail nipper and/or dremel, to more viable healthy nail plate or bed tissue 1-5. Silver nitrate used for any petechial bleeding as necessary. Patient chooses, no pharmaceutical tx (57874).?I&D nail abscess:?Type?Subungual abscess.?Anesthesia?was deferred - NEUROPATHY: patient has medically documented neuropathic condition affecting sensation.?Location?TA , As per exam.?Procedure?Performed incision and drainage of Subungual Abscess. Incised and Drained involved toenail with sterile nipper and curettaged infected devitalized tissue to healthy bleeding bed. Approximately 0.1cc purulent fluid material was drained. Any granuloma present was removed at this time. No underlying bone was visualized. There was minimal bleeding as hemostasis was achieved through the temporary use of either a digital tournaquet or the aforementioned local with epinephrine. Application of sterile Bacitracin dressing performed. Local wound care instructions discussed and dispensed. Recommended Tylenol or Motrin for pain/discomfort (71063) , DIABETES: Pt was advised as to the risk of delayed or nonhealing due to diabetes. Pt is to call the office with any questions, concerns, or complications.?Keratoma Treatment:?Parring or Cutting of Benign Hyperkeratotic Lesion(s)?96882 ( >4 Lesions) - The Benign hyperkeratotic lesions, as described above were pared, and/or cut utilizing a sterile #15 blade, tissue nippers, and/or dremel.? * Procedure Codes:?01891 DRAIN AGE OF SKIN ABSCESS, Modifiers: XS 22287 DEBRIDE NAIL, 6 OR MORE, Modifiers: XS 56351 TRIM SKIN LESIONS, OVER 4, Modifiers: XS * Preventive Medicine:? ??Counseling:?Discussion:?-13: Office or other outpatient visit for the evaluation and management of an established patient, which required a medically appropriate history and/or examination and LOW level of DECISION MAKING for: 1 STABLE ACUTE UNCOMPLICATED PROBLEM, 2 OR MORE MINOR PROBLEMS, OR 1 STABLE CHRONIC PROBLEM, THAT POSE(S) A LOW RISK FOR MORBIDITY/MORTALITY. The visit on the day of the encounter encompassed interpreting the data and educating the patient as to the nature of their condition, treatment options available according to their individual PMH, meds, allergies, and overall health/living conditions, as well as any potential risks or complications that may occur from a failure to adhere to, and participate in, the recommended course of therapy. The discussion included a complete verbal, and/or written explanation of the examination results, any x-rays taken, the proposed diagnosis, and outline of the treatment plan. A schedule for future care needs was also explained. The patient verbalized an understanding of the instructions at this time and agreed to be an active participant in their treatment. If the patient should think of any questions or concerns after the visit, I have encouraged the patient to call the office.?Shoe Gear Counseling:?Patient to obtain shoes hopefully soon.?Treatment:?SUBUNGUAL HEMATOMA - Due to this patients medical history, the plan is to treat their pathology through conservative and restorative nonsurgical means to help alleviate the patients symptomatology by utilizing some or all of the standard podiatric medical care. Recommendations were made for warm epsom salt water soaks for 20 min per day and monitor the nail or toe for any signs of infection (purulent drainage, increasing redness, red lines or streaks ascending the toe, or any increase in pain). If the patient does notice any of the preceding they are to notify the office immediately. The patient was advised of the distinct possibilty for nail auto-avulsion.? * Follow Up:?prn * Images: * Sign off status: Completed Addendum: * ? true * Provider:?Edy Ann DPM Date:?2023 Generated for Tiffani domínguez/Cedrick/Annie on:?07/06/2024 10:49 AM EST History and Physical Notes * HPI (History of Present Illness) Category Sub-Category Detail Notes Category Not es Toe pain Treatments: Rx shoes , state s still needs - next appt end of December Painful Nails Duration: States Possible Date Of Injury - 11/06/23 At Risk footcare Pt States Last PCP Visit: Date: 4 Examination Category Sub-Category Detail Notes Category Not es Neurological SENSORY: Neurological exa m demonstrates, reduced [...] with crumbly malodorous subungual debris, 1-5 B/L , There is evidence of pain on palpation, and an area of SUBUNGUAL HEMORRHAGIC fluid with a pre-operative size measuring approximately ( 3-4 ) mm square, T6 Abscess/infected nail INSPECTION Reveals Kennedy bungual Abscess with nail fluctuance, mild localized erythema, and yellow purulent fluid with pre-operative size approximately ( 1-2 ) mm square, but without exposed bone , TA
--- OUTSIDE RECORDS SUMMARY | 2024-07-06 10:50 | XMS_ITS | Clinical Summary ---
Author Organization [facility] Address [address] [place] [address] Phone Care Team Providers Care Permit Agent Name Role Phone Renetta Rangel MD Primary Care Provider [phone] Allergies No known active allergies Medications amLODIPine (NORVASC) 10 MG tablet Take 10 mg by mouth daily Active aspirin (ST VAL) 81 MG EC tablet Take 81 mg by mouth daily Active metFORMIN (GLUCOPHAGE) 500 MG tablet Take 500 mg by mouth 1 (one) time each day with breakfast Active omeprazole (PriLOSEC) [address] capsule Take 20 mg by mouth daily Active Farxiga 10 MG tablet Take by mouth 1 (one) time each day 3 Active lisinopril 10 MG tablet 3 Active atorvastatin (LIPITOR) 20 MG tablet 3 Active Active Problems Problem Noted Date Diagnosed Date Hypertension 08/05/2020 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 04/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 Stage 3a chronic kidney disease 04/21/2019 Renal mass 04/21/2019 Family History Medical History Relation Comments Kidney disease Father Relation Status Comments Father Social History Tobacco Use Types Packs/Day Years Used Date Smoking Tobacco: Never Smokeless Tobacco: Never Tobacco Cessation:Counseling Given: No Alcohol Use Standard Drinks/Week Comments Yes 0 (1 standard drink = 0.6 oz pur e alcohol) Sex and Gender Information Value Date Recorded Sex Assigned at Not on file Legal Sex Male 10:52 AM EST Gender Identity Not on file Sexual Orientation Not on file Last Filed Vital Signs Vital Sign Reading Time Taken Comments Blood Pressure 116/70 04/02/2023 10:52 AM EDT Pulse 87 04/02/2023 10:52 AM EDT Temperature - - Respiratory Rate - - Oxygen Saturation 98% 04/02/2023 10:52 AM EDT Inhaled Oxygen Concentration - - Weight 99.3 kg (219 lb) 04/02/2023 10:52 AM EDT Height - - Body Mass Index - - Plan of Treatment Health Maintenance Due Date Last Done Comments Pneumococcal Vaccine: 65+ Ye ars (1 of 2 - PCV) 10/04/1951 Influenza Vaccine (#1) 2024 Hepatitis B Vaccine Aged Out No longe r eligible based on patient's age to complete this topic Insurance MEDICARE [facility] MEDICARE [facility] Care Teams Permit Agent Relationship Specialty Start Date End Date Renetta Rangel MD [address] [place] [address] PCP - General Internal Medicine 07/17/20
--- OUTSIDE RECORDS SUMMARY | 2024-07-06 10:50 | XMS_ITS | Encounter Summary ---
Author Organization [facility] Address [address] [place] [address] Care Team Providers Care Electrical Subcontractor Name Role Phone Renetta Rangel MD Primary Care Provider [phone] Reason for Visit * Reason Comments Advice Only Encounter Details Date Type Department Care Team (Late Contact Info) Description 12/18/2019 Telephone [facility] Urologic Surgery [place] [address] [phone] Jeff Jerez MD [address] [address] Advice Only Social History Tobacco Use Types Packs/Day Years [...] on file documented as of this encounter Miscellaneous Notes * Telephone Encounter - Agusto Steel LPN - 12/18/2019 10:57 AM EDT Spoke with the patient, reminded he needs to get his creatinine done prior to his imaging tests. Stanley states he is going in the morning. documented in this encounter Plan of Treatment Upcoming Encounters Date Type Department Care Team (Late Contact Info) Description 05/25/2025 10:15 AM EST Office Visit [facility] Urology [place] [address] [place] [phone] Jeff Jerez MD [address] [address] documented as of this encounter Visit Diagnoses Not on filedocumented in this encounter Care Teams Electrical Subcontractor Relationship Specialty Start Date End Date Renetta Rangel MD [address] [place] [phone] PCP - General 03/08/19 documented as of this encounter
--- OUTSIDE RECORDS SUMMARY | 2024-07-06 10:50 | XMS_ITS | Encounter Summary ---
Author Organization [facility] Address [address] [place] [address] Care Team Providers Care Figurine Maker Name Role Phone Renetta Rangel MD Primary Care Provider [phone] Encounter Details Date Type Department Care Team (Late Contact Info) Description 03/09/[address] [facility] Urologic Surgery [place] [address] [place] [phone] Provider, MD Sun [address] [place] [phone] Social History Tobacco Use Types Packs/Day Years [...] Description 05/25/2025 10:15 AM EST Office Visit [facility] Urology [place] [address] [place] [phone] Jeff Jerez MD [address] [address] documented as of this encounter Visit Diagnoses Not on filedocumented in this encounter Care Teams Figurine Maker Relationship Specialty Start Date End Date Renetta Rangel MD [address] [place] [phone] PCP - General 03/08/19 documented as of this encounter
--- OUTSIDE RECORDS SUMMARY | 2024-07-06 10:50 | XMS_ITS | Patient Health Record ---
Author Organization [facility] Address [address] [place] [address] Care Team Providers Care Restorative Aide Name Role Phone Renetta Rangel MD Primary Care Provider Edy Fonseca Unavailable [phone] Allergies No Known Allergies Results Component Value Reference Range Notes HEMOGLOBIN A1C (GLYCOHEMOGLO BIN) Reviewed date:11/10/2023 09:34:55 AM Interpretation: Performing Lab: Notes/Report: HEMOGLOBIN A1C % (HH) 6.0 HEMOGLOBIN A1C (GLYCOHEMOGLO BIN) Reviewed date:02/09/2024 09:02:36 AM Interpretation: Performing Lab: Notes/Report: HEMOGLOBIN A1C % (HH) 6.0 Reason For Referral No Information Medications Medication SIG (Take, Route, Frequency, Duration) Notes Start Date End Date Status amLODIPine Besylate 10 MG 1 tablet Orally Once a day 02/28/2015 Active glipiZIDE 5 MG 1 tablet Orally Once a day Not-Taking Ammonium Lactate 12 % 1 application to affected area Externally Twice a day to dry areas of skin on feet for 30 days 11/18/2016 Active Tradjenta 5 MG Oral for 30 Not -Taking Doxycycline Hyclate Not-Taking Gabapentin Not-Takin g Extra Depth Orthopedic Shoes (1 Pair) with Customized Heat Molded Multidensity Innersoles (3 Pair) as directed Dx: NIDDM/Polyneuropathy (E11.42), Hammertoe Foot Deformity (M20.41,M20.42), Preulcerative Skin Lesion(s) (L85.1 08/11/2023 Active Simvastatin 20 MG (Prior Auth: Rx Ref#:[id number]) Oral for 90 Not-Taking Omeprazole 20 MG 1 capsule Orally Onc e a day 02/28/2015 Active Lisinopril 10 MG (Prior Auth: Rx Ref#:[id number]) Oral for 90 Active metFORMIN HCl 500 MG 1 tablet with meals Orally Twice a day Active Atorvastatin Calcium Active Farxiga Active Immunizations Vaccine Route Administration Date Status Comme nts COVID-19 Moderna Vaccine Unknown 08/09/2020 Administere d COVID-19 Moderna Vaccine Unknown 09/06/2020 Administere d Influenza Unknown 04/17/2015 Administered Influenza Unknown 06/17/2016 Administered Influenza Unknown 05/17/2017 Administered Influenza Unknown 02/23/2018 Administered Influenza Unknown 02/23/2019 Administered Pneumococcal Unknown 04/12/2013 Administered Social History Tobacco Use: Social History Observation [...] Are you an other tobacco user? No Section Notes: A1C - Unknown Flu Shot 04/2015 Eye Exam 05/2015 A1C - Unknown Flu Shot 04/2015 Eye Exam 05/2015 Problems Problem Type SNOMED Code ICD Code Onset Dates Problem Status W/U Status Risk Notes Problem Acquired hammer toe of right foot (8427303645828426 ) Other hammer toe(s) (acquired), right foot (M20.41) Active confirmed Response to treatment, Improvemen t Problem Acquired hammer toe of left foot (1706513680501392 ) Other hammer toe(s) (acquired), left foot (M20.42) Active confirmed Response to treatment, Improvemen t Problem Polyneuropathy due to type 2 diabetes mellitus (475587013) Type 2 diabetes mellitus with diabetic polyneuropathy (E11.42) Active confirmed Vital Signs Height 6ft 3in in 05/11/2024 Weight 215 lbs 05/11/2024 BMI 26.87 kg/m2 05/11/2024 Procedures Procedure Date Ordered Date Performed Result Body Sit e 67338-GEAGCAC NAIL, 6 OR MORE 08/11/2023 N/A 26303-Wyywitru Plate 08/11/2023 N/A 30299-JMVU SKIN LESIONS, OVER 4 08/11/2023 N/A 01449-AWXUUFL NAIL, 6 OR MORE 11/10/2023 N/A 47274 I&D ABSCESS- SIMPLE,SINGLE 11/10/2023 N/A 36680-FIHB SKIN LESIONS, OVER 4 11/10/2023 N/A 53995-JDIMCAE NAIL, 6 OR MORE 02/09/2024 N/A 69705-Bzalyhnn Plate 02/09/2024 N/A 13386-RUKB SKIN LESIONS, OVER 4 02/09/2024 N/A 39239-UJLUTTE NAIL, 6 OR MORE 05/11/2024 N/A 63564-IQAM SKIN LESIONS, OVER 4 05/11/2024 N/A 86659-Fbmy. Subungual Hematoma 05/11/2024 N/A Encounters Encounter Location Date Provider Diagnosis [address] [address] 08/11/2023 Edyruy WhaleySeth Type 2 diabetes mellitus with diabetic polyneuropathy E11.42 ; Tinea unguium B35.1 ; Ingrown nail L60.0 ; Other hammer toe(s) (acquired), right foot M20.41 and Other hammer toe(s) (acquired), left foot M20.[address] [address] 11/10/2023 Edyruy Ann Type 2 diabetes mellitus with diabetic polyneuropathy E11.42 ; Tinea unguium B35.1 ; Abscess of toe, left L02.612 and Subungual hematoma of right foot, initial encounter S90.221A [address] [address] 02/09/2024 Edy Seth Type 2 diabetes mellitus with diabetic polyneuropathy E11.42 ; Tinea unguium B35.1 and Ingrown nail L60.[address] [address] 05/11/2024 Edyruy WhaleySeth Type 2 diabetes mellitus with diabetic polyneuropathy E11.42 ; Tinea unguium B35.1 ; Other hammer toe(s) (acquired), right foot M20.41 ; Other hammer toe(s) (acquired), left foot M20.42 and Subungual hematoma of left foot, initial encounter S90.222A Assessments Encounter Date Diagnosis (ICD Code) Assessment Notes Treatment Notes Treatment Clinical Notes Section Notes 08/11/2023 Type 2 diabetes mellitus with diabetic polyneuropathy (ICD-10 - E11.42) 08/11/2023 Tinea unguium (ICD-10 - B35.1) 11/10/2023 Type 2 diabetes mellitus with diabetic polyneuropathy (ICD-10 - E11.42) 11/10/2023 Tinea unguium (ICD-10 - B35.1) 02/09/2024 Type 2 diabetes mellitus with diabetic polyneuropathy (ICD-10 - E11.42) 02/09/2024 Tinea unguium (ICD-10 - B35.1) 05/11/2024 Type 2 diabetes mellitus with diabetic polyneuropathy (ICD-10 - E11.42) 05/11/2024 Tinea unguium (ICD-10 - B35.1) 02/09/2024 Ingrown nail (ICD-10 - L60.0) 05/11/2024 Other hammer toe(s) (acquired), right foot (ICD-10 - M20.41) Response to treatment,Impro vement 11/10/2023 Abscess of toe, left (ICD-10 - L02.612) Patient Educated with: WOUND CARE INSTRUCTIONS. pdf (WOUND CARE INSTRUCTIONS. pdf) 08/11/2023 Ingrown nail (ICD-10 - L60.0) 08/11/2023 Other hammer toe(s) (acquired), right foot (ICD-10 - M20.41) Patient Educated with: DIABETIC FOOT CARE INSTRUCTIONS. pdf (DIABETIC FOOT CARE INSTRUCTIONS. pdf) 11/10/2023 Subungual hematoma of right foot, initial encounter (ICD-10 - S90.221A) 05/11/2024 Other hammer toe(s) (acquired), left foot (ICD-10 - M20.42) Response to treatment,Impro vement 05/11/2024 Subungual hematoma of left foot, initial encounter (ICD-10 - S90.222A) 08/11/2023 Other hammer toe(s) (acquired), left foot (ICD-10 - M20.42) 11/10/2023 Other Plan Of Treatment Pending Test Test Name Order Date Hemoglobin A1c 03/06/2015 35052-HUYCQFI NAIL, 6 OR MORE 03/06/2015 21988-XWBVKBW NAIL, 6 OR MORE 06/12/2015 60904-OAOKFKA NAIL, 6 OR MORE 09/04/2015 66076-OZTMPSL NAIL, 6 OR MORE 12/04/2015 66235-PRRYTAO NAIL, 6 OR MORE 02/20/2016 54025-HKCMPAR NAIL, 6 OR MORE 08/19/2016 98074-GFWQOYM NAIL, 6 OR MORE 05/21/2016 36543-KNLDLSE NAIL, 6 OR MORE 11/18/2016 64412-UCIAZVJ NAIL, 6 OR MORE 03/01/2017 39371-UBHYEBU NAIL, 6 OR MORE 06/28/2017 76453-HCVTUGU NAIL, 6 OR MORE 10/04/2017 95608-TWQGSXD NAIL, 6 OR MORE 01/03/2018 94200-OUXWOBE NAIL, 6 OR MORE 04/04/2018 88800-ZDOEKKZ NAIL, 6 OR MORE 07/18/2018 06280-VRDTOVH NAIL, 6 OR MORE 11/07/2018 96329-JLZRKXM NAIL, 6 OR MORE 02/22/2019 93859-OCESHXJ NAIL, 6 OR MORE 05/24/2019 33055-AXMIQUJ NAIL, 6 OR MORE 08/03/2019 32360-CHUSOIR NAIL, 6 OR MORE 11/02/2019 77256-HEQQPIU NAIL, 6 OR MORE 02/01/2020 25476-POKPIUK NAIL, 6 OR MORE 04/22/2020 64966-WPBDXGT NAIL, 6 OR MORE 07/15/2020 36496-LXQMUYX NAIL, 6 OR MORE 10/14/2020 59190-ORLMMOM NAIL, 6 OR MORE 01/13/2021 67811-YEADHAZ NAIL, 6 OR MORE 04/14/2021 89875-OJWONRN NAIL, 6 OR MORE 08/14/2021 90106-KNXFYYL NAIL, 6 OR MORE 10/29/2021 65769-IOBLPCO NAIL, 6 OR MORE 01/21/2022 75395-QALLMKF NAIL, 6 OR MORE 04/22/2022 45145-OPFWBPO NAIL, 6 OR MORE 07/29/2022 75223-AUKIOWY NAIL, 6 OR MORE 11/04/2022 86782-NHCUOQP NAIL, 6 OR MORE 01/27/2023 82958-BRXOETB NAIL, 6 OR MORE 05/10/2023 05258-BZXPCDY NAIL, 6 OR MORE 08/11/2023 84238-EWFDFZL NAIL, 6 OR MORE 11/10/2023 61130-LLMZQJC NAIL, 6 OR MORE 02/09/2024 41595-EGSSQKW NAIL, 6 OR MORE 05/11/2024 33284-Hloycjye Plate 02/09/2024 60928-Gpzavtsu Plate 08/11/2023 10618-Fxoczxri Plate 07/29/2022 57127-Cjmstuqj Plate 05/10/2023 82057-Dhvgkbyz Plate 11/04/2022 04266-Eipxbebz Plate 01/21/2022 84895-Jfkrukkw Plate 10/29/2021 05001-Lcbwsnus Plate 08/14/2021 38455-Gnapknpt Plate 04/14/2021 11537-Dbthpguc Plate 01/13/2021 40825-Gruhfeok Plate 10/14/2020 81429-Rdkkmqbu Plate 07/15/2020 32574-Tnicpatt Plate 04/22/2020 15642-Tppevdlv Plate 02/01/2020 22257-Slyzyviw Plate 11/02/2019 30201-Ihdkecwk Plate 08/03/2019 19232-Huhyuapo Plate 05/24/2019 52141-Czdvuiyr Plate 02/22/2019 67167-Pxyetemu Plate 11/07/2018 19653-Hdouzbaw Plate 07/18/2018 76491-Xdddzyip Plate 04/04/2018 57276-Jpvvmkvc Plate 01/03/2018 11596-Fapgxass Plate 10/04/2017 74116-Sssihhph Plate 06/28/2017 32922-Pcksalep Plate 03/01/2017 99875-Ettncuio Plate 08/19/2016 50428-Ngojbfsu Plate 06/12/2015 57471-Slwafktm Plate Each Additional 11/2015 11435-Xrnputwu Plate Each Additional 67163- Debride <25 sq cm 07/18/2018 35956 I&D ABSCESS- SIMPLE,SINGLE 024 27878- I&D ABSCESS-COMPLICATED,MULTI 53704-MHUA SKIN LESIONS, OVER 4 04/04/20 18 05917-EWNP SKIN LESIONS, OVER 4 01/04/20 18 06718-VEAF SKIN LESIONS, OVER 4 03/01/20 17 61866-BZBD SKIN LESIONS, OVER 4 05/21/20 16 34464-LJAG SKIN LESIONS, OVER 4 06/28/19 18 33446-QXNT SKIN LESIONS, OVER 4 10/05/19 18 20992-ATVG SKIN LESIONS, OVER 4 06/12/19 16 67378-ILIO SKIN LESIONS, OVER 4 09/04/19 16 96622-IGDQ SKIN LESIONS, OVER 4 03/06/20 15 07487-DFSO SKIN LESIONS, OVER 4 08/20/19 17 57506-AOGG SKIN LESIONS, OVER 4 11/19/19 17 71431-BGXQ SKIN LESIONS, OVER 4 02/20/20 16 86815-HPKK SKIN LESIONS, OVER 4 12/04/19 16 92785-QQPZ SKIN LESIONS, OVER 4 07/18/19 19 24537-QCEK SKIN LESIONS, OVER 4 11/08/19 19 79670-ZHWH SKIN LESIONS, OVER 4 02/23/20 19 88286-QJQB SKIN LESIONS, OVER 4 05/24/20 19 48757-AIEG SKIN LESIONS, OVER 4 08/03/19 20 01743-XCUP SKIN LESIONS, OVER 4 11/02/19 20 26594-ZYXY SKIN LESIONS, OVER 4 02/01/20 20 39614-UZFG SKIN LESIONS, OVER 4 04/22/20 20 46674-AQUV SKIN LESIONS, OVER 4 07/15/19 21 37990-THLS SKIN LESIONS, OVER 4 10/15/19 76596-NPGY SKIN LESIONS, OVER 4 01/14/20 31134-XKDG SKIN LESIONS, OVER 4 04/14/20 33374-AEYG SKIN LESIONS, OVER 4 08/15/19 10329-XJLD SKIN LESIONS, OVER 4 10/30/19 16722-JWNG SKIN LESIONS, OVER 4 05/11/20 72007-HZXJ SKIN LESIONS, OVER 4 02/09/20 69238-UFWY SKIN LESIONS, OVER 4 11/10/19 11951-WLLX SKIN LESIONS, OVER 4 01/22/20 37129-QVIZ SKIN LESIONS, OVER 4 04/22/20 34585-SFVT SKIN LESIONS, OVER 4 11/05/19 23 53147-USRN SKIN LESIONS, OVER 4 07/29/19 23 88399-MZPS SKIN LESIONS, OVER 4 08/11/19 24 42300-OUPI SKIN LESIONS, OVER 4 05/10/20 23 61604-CGAC SKIN LESIONS, OVER 4 01/28/20 23 75975-Fjij. Subungual Hematoma 4 06110-Awxc. Subungual Hematoma 1 Next Appt Details Provider Name:Edy Ann , 08/10/2024 09:30:00 AM, [address] [facility], [address], [place], [address], Insurance Providers Payer Name Payer Address Payer Phone Subscriber Number Group Number Insured Name Patient Relationship to Insured Coverage Start Date Coverage End Date Medicare National [employer] [address] [place] [address] [id number] Kevin Daly Self - patient is the insured [employer] [place] Medicare Advantage [facility] [address] [place] [address] [id number] Kevin Daly Self - patient is the insured Medical (General) History Medical History History ICD Code Back,Hip,and Knee pain type II diabetes High blood pressure Reflux Measles Mumps Chicken pox Cholesterol Surgical History Surgery Date(Month/Year) tonsillectomy rotator cuff tear repair 11/29/17 [facility] biopsy kidney 05/2019 Hospitalization History Reason Date(Month/[place] [facility] [place] 2 [place] 09[place]2022 [facility] biopsy kidney 04/20/22 [facility] [place]2020 [facility] [place] Kidney stone 01/14/19 [facility] rotator cuff surgery left arm
--- OUTSIDE RECORDS SUMMARY | 2024-07-06 10:50 | XMS_ITS | Encounter Summary ---
Author Organization [facility] Address [address] [place] [id number] Care Team Providers Care Hose Inspector And Patcher Name Role Phone Renetta Rangel MD Primary Care Provider [phone] Encounter Details Date Type Department Care Team (Late Contact Info) Description 03/09/[address] [facility] [place] [address] [place] [phone] Provider, MD Sun [address] [place] [phone] Social History Tobacco Use Types Packs/Day Years [...] Description 05/25/2025 10:15 AM EST Office Visit [facility] [place] [address] [place] [phone] Jeff Jerez MD [address] [address] documented as of this encounter Visit Diagnoses Not on filedocumented in this encounter Care Teams Hose Inspector And Patcher Relationship Specialty Start Date End Date Renetta Rangel MD [address] [place] [address] PCP - General 03/08/19 documented as of this encounter
--- OUTSIDE RECORDS SUMMARY | 2024-07-06 10:50 | XMS_ITS ---
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 Name Role Phone Renetta Rangel MD Primary Care Provider Edy Fonseca Unavailable [phone] Allergies No Known Allergies REASON FOR VISIT At Risk Footcare, Toe Irritation, Painful Toe/Nail(s) Medications Medication SIG (Take, Route, Frequency, Duration) Notes Start Date End Date Status Ammonium Lactate 12 % 1 application to affected area Externally Twice a day to dry areas of skin on feet for 30 days 11/18/2016 Active Lisinopril 10 MG (Prior Auth: Rx Ref#:[id number]) Oral for 90 Active metFORMIN HCl 500 MG 1 tablet with meals Orally Twice a day Active Atorvastatin Calcium Active Farxiga Active amLODIPine Besylate 10 MG 1 tablet Orally Once a day 02/28/2015 Active glipiZIDE 5 MG 1 tablet Orally Once a day Not-Taking Tradjenta 5 MG Oral for 30 Not -Taking Doxycycline Hyclate Not-Taking Gabapentin Not-Takin g Extra Depth Orthopedic Shoes (1 Pair) with Customized Heat Molded Multidensity Innersoles (3 Pair) as directed Dx: NIDDM/Polyneuropathy (E11.42), Hammertoe Foot Deformity (M20.41,M20.42), Preulcerative Skin Lesion(s) (L85.1 08/11/2023 Active Simvastatin 20 MG (Prior Auth: Rx Ref#:[id number]) Oral for 90 Not-Taking Omeprazole 20 MG 1 capsule Orally Onc e a day 02/28/2015 Active Social History Tobacco Use: Social History Observation Description Date Details (start date - stop date) Never Smoker NA - NA Tobacco Use/Smoking Question Answer Notes Are you a: nonsmoker Additional Findings: Tobacco Non-User Current no n-smoker Tobacco use other than smoking: Question Answer Notes Are you an other tobacco user? No Vital Signs Height 6ft 3in in 05/11/2024 Weight 215 lbs 05/11/2024 BMI 26.87 kg/m2 05/11/2024 Procedures Procedure Date Ordered Date Performed Result Body Sit e 20883-YCELQEH NAIL, 6 OR MORE 05/11/2024 N/A 32568-ZWBB SKIN LESIONS, OVER 4 05/11/2024 N/A 04044-Jera. Subungual Hematoma 05/11/2024 N/A Encounters Encounter Location Date Provider Diagnosis [facility] [address] [address] 05/11/2024 Edy Ann Type 2 diabetes mellitus with diabetic polyneuropathy E11.42 ; Tinea unguium B35.1 ; Other hammer toe(s) (acquired), right foot M20.41 ; Other hammer toe(s) (acquired), left foot M20.42 and Subungual hematoma of left foot, initial encounter S90.222A Assessments Encounter Date Diagnosis (ICD Code) Assessment Notes Treatment Notes Treatment Clinical Notes Section Notes 05/11/2024 Type 2 diabetes mellitus with diabetic polyneuropathy (ICD-10 - E11.42) 05/11/2024 Tinea unguium (ICD-10 - B35.1) 05/11/2024 Other hammer toe(s) (acquired), right foot (ICD-10 - M20.41) Response to treatment,Impro vement 05/11/2024 Other hammer toe(s) (acquired), left foot (ICD-10 - M20.42) Response to treatment,Impro vement 05/11/2024 Subungual hematoma of left foot, initial encounter (ICD-10 - S90.222A) Plan Of Treatment Pending Test Test Name Order Date 83588-CZQTUGN NAIL, 6 OR MORE 05/11/2024 51753-OEXU SKIN LESIONS, OVER 4 05/11/20 24 29092-Bkmq. Subungual Hematoma 4 Next Appt Details Follow Up: prn, Reason: Provider Name:Edy Ann , 08/10/2024 09:30:00 AM, [address] [facility], [address], [place], [address], Procedure Notes * Category Sub-Category Detail Notes Debride Nail 6-10 Nail debridement Performance o f this nail treatment by a nonprofessional would put this patients foot and overall health at risk. Therefore, debridement to affected nail(s), as described in exam, was performed extensively to reduce/remove overall nail length, girth, thickness, subungual debris, and necrotic tissue, by manual and/or electrical means through the use of a nail nipper and/or dremel-type turbinated bone grinder, to a more viable healthy nail plate or bed tissue 6-10 nails in total. Silver nitrate was used for any petechial bleeding as necessary. Definitive antifungal treatment options, both pharmaceutical and surgical, have been reviewed and discussed with the patient. The patient solely prefers the use of intermittent/as needed professional debridement services for their nail condition and understands the need for additional periodic treatments to maintain effectiveness in symptomatic relief - 25883 I&D subungual hematoma: Location T4, As p er exam Procedure: Performed incision a nd drainage of subungual hematoma with use of sterile power lucho and/or nail nipper. Approximately ( 0.1 ) cc of hemorrhagic fluid material was drained. No underlying bone was visualized. An application of sterile Bacitracin dressing was performed. Local wound care instructions were discussed and dispensed , Pt was advised of the possibilty for nail auto-avulsion (67766), DIABETES: Pt was advised as to the risk of delayed or nonhealing due to diabetes. Pt is to call the office with any questions, concerns, or complications Anesthesia was deferred - NEURO ARABELLA: patient has medically documented neuropathic condition affecting sensation Keratoma Treatment Parring or Cutting o f Benign Hyperkeratotic Lesion(s) (-57) More than 4 Lesions - The Benign hyperkeratotic lesions, ( 6) in total, locations as stated and described in exam, were pared, and/or cut utilizing a sterile 15 blade, tissue nippers, and/or power dremel instrumentation - 27968 Progress Notes * Kevin LINDO MDOB: (78 yo M)Acc No.[id number]:05/11/2024 Progress Note Patient:?Kevin LINDO Provider:?Edy Ann DPM :1945???Age:78 Y???Sex:Male Socrates e:05/11/2024 Address:[address] [place], [place] [id number] Pcp:Renetta Rangel MD Subjective: * Chief Complaints: * ???At Risk FootcareToe Irrit ationPainful Toe/Nail(s) * HPI: ???At Risk footcare:?Pt States Last PCP Visit:?Date?01/20/2024 ???Toe pain:?Treatments:?Rx shoes .?Painful Nails:?Duration:?States Possible Date Of Injury - 05/04/24.? * ROS:?General/Constitutional:?Nausea?denies.?Vomiting?denies.?Hunger Thirst?denies.?Loss appetite?denies.?Chills?denies.?Fatigue?denies.?Fever?denies.?Night Sweats?denies.?Unexplained weight loss?denies.?Ophthalmologic:?Blurred vision?denies.?Red eye?denies.?HEENTM:?Dentures?denies.?Dizziness?denies.?Glasses/contacts?admits.?Retinopathy?de nies.?Blurred/double vision?denies.?TMJ?denies.?Discharge/drainage?denies.?Implants?denies.?Hard of hearing admits.?Difficulty chewing/swallowing/speaking?denies.?Nose bleeds?denies.?Sore mouth?denies.?Swollen glands?denies.?Respiratory:?On Oxygen?denies.?Pneumonia/pleurisy?denies.?Bronchitis?denies.?Emphysema?denies.?C oughing?denies.?Cough blood?denies.?Shortness of breath?denies.?Wheezing?denies.?Cardiovascular:?Pacemaker?denies.?MVP?denies.?WPW?denies.?CHF?denies.?Heart attack?denies.?Septal defect?denies.?Rapid beat?denies.?Chest pain ?denies.?Atrial Fib.?denies.?Murmur/Palpitations?denies.?Gastrointestinal:?Hemorrhoids?denies.?Stomach/Abdominal pain?denies.?Dark blood stool?denies.?Irritable bowel ?denies.?Constipation?denies.?Diarrhea?admits.?Vomiting?denies.?Hematology:?Swelling?admits.?Bruising?denies.?Bleeding problem?denies.?Genitourinary:?Blood urine?denies.?Frequent/Painfu/urination/bladder control?denies.?Kidney stones?denies.?Infection (UTI)?denies.?Nephropathy?denies.?Musculoskeletal:?Hammertoes?admits.?Bunions?denies.?Scoliosis/kyphosis?denies.?Muscle cramps / walking?denies.?Generalized aches and pains?denies.?Weakness?denies.?Integ.:?Gan?denies.?Scars?denies.?Corns/calluses?admits.?Ingrown nails?admits.?Painful nails?denies.?Rashes?denies.?Neurologic:?Difficulty sleeping?denies.?Bipolar?denies.?Brain disorder?denies.?Balance trouble?denies.?Confusion?denies.?Fainting/blackouts?denies.?Headache?denies.?Tr emors?denies.? * Medical History:? * Surgical History:?tonsillect beatris rotator cuff tear repair 11/29/17[facility] biopsy kidney 05/2019 * Hospitalization/Major Diagno stic Procedure:?NEOS rotator cuff surgery left arm 11/29/17[facility] Kidney stone 01/14/19[facility]- pneumonia 09/2020[facility] biopsy kidney 04/20/22[facility]- heart monitor, 2 days 09/2022 * Family History:?Mother: dece ased, diagnosed with Unspecified essential hypertension, Unspecified heart disease.?Father: .?Daughter(s): alive.?Spouse: alive.?1 son(s) , 1 daughter(s) - healthy. .? * Social History:?Tobacco Use:?Tobacco Use/Smoking?Are you a:?nonsmoker ?Additional Findings: Tobacco Non-User?Current non-smoker ?Tobacco use other than smoking?Are you an other tobacco user??No * Medications:?TakingamLODIPin e Besylate 10 MG Tablet 1 tablet Orally Once a day Ammonium Lactate 12 % Cream 1 application to affected area Externally Twice a day to dry areas of skin on feet Atorvastatin Calcium Farxiga Lisinopril 10 MG Tablet (Prior Auth: Rx Ref#:[id number]) Oral metFORMIN HCl 500 MG Tablet 1 tablet with meals Orally Twice a day Omeprazole 20 MG Capsule Delayed Release 1 capsule Orally Once a day Extra Depth Orthopedic Shoes (1 Pair) with Customized Heat Molded Multidensity Innersoles (3 Pair) as directed Dx: NIDDM/Polyneuropathy (E11.42), Hammertoe Foot Deformity (M20.41,M20.42), Preulcerative Skin Lesion(s) (L85.1 Taking amLODIPine Besylate 10 MG Tablet 1 tablet Orally Once a day Taking Ammonium Lactate 12 % Cream 1 application to affected area Externally Twice a day to dry areas of skin on feet Taking Atorvastatin Calcium Taking Farxiga Taking Lisinopril 10 MG Tablet (Prior Auth: Rx Ref#:[id number]) Oral Taking metFORMIN HCl 500 MG Tablet 1 tablet with meals Orally Twice a day Taking Omeprazole 20 MG Capsule Delayed Release 1 capsule Orally Once a day Taking Extra Depth Orthopedic Shoes (1 Pair) with Customized Heat Molded Multidensity Innersoles (3 Pair) as directed Dx: NIDDM/Polyneuropathy (E11.42), Hammertoe Foot Deformity (M20.41,M20.42), Preulcerative Skin Lesion(s) (L85.1 Not-Taking/PRNSimvastatin 20 MG Tablet (Prior Auth: Rx Ref#:[id number]) Oral Doxycycline Hyclate Gabapentin glipiZIDE 5 MG Tablet 1 tablet Orally Once a day Tradjenta 5 MG Tablet Oral Medication List reviewed and reconciled with the patientNot-Taking/PRN Simvastatin 20 MG Tablet (Prior Auth: Rx Ref#:[id number]) Oral Not-Taking/PRN Doxycycline Hyclate Not-Taking/PRN Gabapentin Not-Taking/PRN glipiZIDE 5 MG Tablet 1 tablet Orally Once a day Not-Taking/PRN Tradjenta 5 MG Tablet Oral Medication List reviewed and reconciled with the patient * Allergies:?N.K.D.A.yes[Aller gies Verified] Objective: * Vitals:?Ht: 6ft 3in, Wt: 215 , BMI: 26.87, Shoe size: 11, BS: 132, Ht-cm: 190.5 cm, Wt-k.52 kg. * ???Past Orders: ???Lab:HEMOGLOBIN A1C (GLYCO HEMOGLOBIN) (Order Date - 01/20/2024) (Collection Date & Time - 01/20/2024 09:02 AM) ? Value Reference Range ?HEMOGLOBIN A1C % [...] with a pre-operative size measuring approximately ( 1-2 ) mm square, T4.?Dermatologic: ?SKIN FINDINGS:?Skin exam reveals Keratotic lesion(s) located at, Medial, Plantar, T2, Medial plantar, IPJ, T5, SUB MTH (s), 1, B/L, Plantar, Heel, B/L.?Orthopedic: ?DIGITAL DEFORMITIES:?Digital contracture, PIPJ, 2-5 B/L, incompl-reducible to push-up test, no over, nor underlapping, no longer, with evidence of shoe producing skin irritation.?FOOTWEAR:?good condition, exhibit proper fit and accommodation for pedal deformities. OT were inspected and noted to be worn, but in good condition giving proper support at the present time.? Assessment: * Assessment: 1.?Type 2 diabetes mellitus with diabetic polyneuropathy - E11.42 (Primary)???2.?Tinea unguium - B35.1???3.?Other hammer toe(s) (acquired), right foot - M20.41???Specify :Chronic problem, Stable (1=3,2=4)???Notes :Response to treatment,Improvement???4.?Other hammer toe(s) (acquired), left foot - M20.42???Specify :Chronic problem, Stable (1=3,2=4)???Notes :Response to treatment,Improvement???5.?Subungual hematoma of left foot, initial encounter - S90.222A??? Plan: * Treatment: 2.?Subungual hematoma of lef t foot, initial encounter?Procedure: 15304-Plcm. Subungual Hematoma * Procedures:?Debride Nail 6-10:?Nail debridement?Performance of this nail treatment by a nonprofessional would put this patients foot and overall health at risk. Therefore, debridement to affected nail(s), as described in exam, was performed extensively to reduce/remove overall nail length, girth, thickness, subungual debris, and necrotic tissue, by manual and/or electrical means through the use of a nail nipper and/or dremel-type turbinated bone grinder, to a more viable healthy nail plate or bed tissue 6-10 nails in total. Silver nitrate was used for any petechial bleeding as necessary. Definitive antifungal treatment options, both pharmaceutical and surgical, have been reviewed and discussed with the patient. The patient solely prefers the use of intermittent/as needed professional debridement services for their nail condition and understands the need for additional periodic treatments to maintain effectiveness in symptomatic relief - 82083.?I&D subungual hematoma::?Location?T4, As per exam.?Anesthesia?was deferred - NEUROPATHY: patient has medically documented neuropathic condition affecting sensation.?Procedure:?Performed incision and drainage of subungual hematoma with use of sterile power lucho and/or nail nipper. Approximately ( 0.1 ) cc of hemorrhagic fluid material was drained. No underlying bone was visualized. An application of sterile Bacitracin dressing was performed. Local wound care instructions were discussed and dispensed , Pt was advised of the possibilty for nail auto-avulsion (17921), DIABETES: Pt was advised as to the risk of delayed or nonhealing due to diabetes. Pt is to call the office with any questions, concerns, or complications.?Keratoma Treatment:?Parring or Cutting of Benign Hyperkeratotic Lesion(s)?(-57) More than 4 Lesions - The Benign hyperkeratotic lesions, ( 6) in total, locations as stated and described in exam, were pared, and/or cut utilizing a sterile 15 blade, tissue nippers, and/or power dremel instrumentation - 63413.? * Procedure Codes:?09419 DEBRI DE NAIL, 6 OR MORE, Modifiers: XS 56590 DRAIN BLOOD FROM UNDER NAIL, Modifiers: XS , [id number] TRIM SKIN LESIONS, OVER 4, Modifiers: XS [...] the patient to call the office.?Shoe Gear Counseling:?A thorough inspection of the patients Rxed shoegear and inserts was performed and findings communicated. We reviewed the many important medical advantages for adhering to regularly wearing these shoe and insert accomidative devices daily as well as reviewed the fact that a failure in accepting these recommedations may be deleterious, unable to prevent, and disadvantagely result in, many pedal complications such as skin irritation, skin ulceration, infection, and even loss of toe/foot/leg/or even their life. Time was also spent reviewing the proper footcare techniques including daily skin moisturization, daily foot inspection for any interruption in skin integrity, open lesions, or sign of infection such as redness/malodor/drainage/swelling as well as daily shoe inspection for the presence of internal foreign bodies and shoe as well as insert wear. Patient questions re: shoes, inserts, and self foot inspections were answered to their satisfaction as the patient verbally confirmed a full understanding of the above information.? * Follow Up:?prn * Images: * Sign off status: Completed true * Provider:?Edy Ann DPM Date:?2023 Generated for Tiffani domínguez/Cedrick/Annie on:?07/06/2024 10:50 AM EST History and Physical Notes * HPI (History of Present Illness) Category Sub-Category Detail Notes Category Not es Toe pain Treatments: Rx shoes Painful Nails Duration: States Possible Date Of Injury - 05/04/24 At Risk footcare Pt States Last PCP [...] IPJ, T5, SUB MTH (s), 1, B/L, Plantar, Heel, B/L Orthopedic FOOTWEAR: good condition, exhibit proper fit and accommodation for pedal deformities. OT were inspected and noted to be worn, but in good condition giving proper support at the present time DIGITAL DEFORMITIES: Digital contracture , PIPJ, 2-5 B/L, incompl-reducible to push-up test, no over, nor underlapping, no longer, with evidence of shoe producing skin irritation Nails NAILS are: Elongated, overg rown, dystrophic, lytic, greater than 3mm thick, discolored and friable with crumbly malodorous subungual debris, 1-5 B/L , There is evidence of pain on palpation, and an area of SUBUNGUAL HEMORRHAGIC fluid with a pre-operative size measuring approximately ( 1-2 ) mm square, T4
[2024-07-06 10:55] LABS: PSA,Total (Free>4and<10) 1.13 ng/mL (0.00-4.00)
== END 2024-07-06 07:56 | disposition home or self-care (01) ==
LOC: HO.HMGCLDS 07:55
PROVIDERS: PCP Internal Medicine; Visit Provider Internal Medicine
DX: I10 Essential (primary) hypertension (principal); E11.9 Type 2 diabetes mellitus without complications; N18.30 Chronic kidney disease, stage 3 unspecified; E78.5 Hyperlipidemia, unspecified; G62.9 Polyneuropathy, unspecified; Z12.5 Encounter for screening for malignant neoplasm of prostate
CPT/HCPCS: 36415; 80053; 80061; 82043; 82570; 83036; 84153; 85025

== ENCOUNTER 2024-07-11 09:04 | Outpatient (AMB) | payer MEDICARE, OTHER, SELFPAY ==
--- NOTE | 2024-07-11 09:06 | A.OFFPC_ITS ---
Vital Signs 07/11/24 09:07 BP 120/80 Blood Pressure Location Rt brachial Position Sitting Respiration 18 Pulse Oximetry (%) 98 Oxygen Delivery Method Room Air Intake Visit Reasons: 6 month Intake Note: Pt is here today for 6 months follow up visit on labs. Allergies No Known Allergies [No Known Allergies*] Allergy (Verified 07/11/24 09:08) Medication List - Last Reconciled 07/11/24 by Renetta Rangel MD amlodipine 10 mg PO DAILY atorvastatin 20 mg PO DAILY blood sugar diagnostic (Accu-Chek Maris Plus test strips) use one strip once a day to test blood sugar dapagliflozin propanediol (Farxiga) 10 mg PO DAILY flu vac 2020 [id number]-[id number](PF) 60 mcg (15 mcg x 4)/0.5 mL mL IM lancets (Accu-Chek Fastclix Lancet Drum) use to test blood sugar once a day lisinopril 10 mg PO DAILY metformin 500 mg PO DAILY omeprazole 20 mg PO DAILY pneumoc 13-yogesh conj-dip cr(PF) mL IM Tobacco use date assessed: 07/11/24 Fall risk assessment: 2 + Falls in past year Last assessed Fall Risk: 07/11/24 Dental Screening Dental Screen Date: 07/11/24 Did you have a dental visit in the last 12 months?: Yes Did you have a dental problem in the last 6 months where you did not have access to dental care?: No Was dental information given to patient?: Patient has dentist HPI 6 month HPI0 Details Pt presents for DM 2, hyperlipid, HTN, stable on meds. Patient is going to [employer] for 2 weeks. He reports occasional difficulty with the balance. He denies recent falls, weakness or numbness in extremities. Patient has been walking less since his dog REPLACED BY [facility] Medical History Annual physical exam Pneumonia Lumbar disc disease Renal mass CKD (chronic kidney disease) stage 3, GFR 30-59 ml/min Overweight Hyperlipidemia HTN (hypertension) Type 2 diabetes mellitus Surgical History H/O colonoscopy Family History Father MVA (motor vehicle accident) Mother Heart failure Social History Housing: House Alcohol intake: current Alcohol intake frequency: a few times a week Patient Tobacco Use Status: Never used Tobacco e-Cigarette/Vaping Use: Never Used service: Yes Current occupational status: retired Cognitive needs: No Hearing needs: Yes Vision needs: Yes Questionnaire PHQ-9 Over the last 2 weeks, how often have you been bothered by any of the following problems? 1. Little interest or pleasure in doing things: not at all 2. Feeling down, depressed, or hopeless: not at all 3. Trouble falling or staying asleep, or sleeping too much: several days 4. Feeling tired or having little energy: not at all 5. Poor appetite or overeating: not at all 6. Feeling bad about yourself - or that you are a failure or have let yourself or your family down: not at all 7. Trouble concentrating on things, such as reading the newspaper or watching television: not at all 8. Moving or speaking so slowly that other people could have noticed. Or the opposite - being so fidgety or restless that you have been moving around a lot more than usual: not at all 9. Thoughts that you would be better off or of hurting yourself in some way: not at all Total score: 1 Depression Screening Interpretation: Negative Depression Screening Done: Yes 91230 - PHQ-9 Billing: Yes Source: Developed by Drs. Nain Goss, Ramya Rudolph, Edgard Langston and colleagues, with an educational cornell from [employer]. Thrive Questionnaire Date Thrive assessed: 07/11/24 I am a: Patient What is your living situation today?: I have a steady place to live Within the past 12 months, did the food you bought not last and you didn't have the money to get more?: Never true Within the past 12 months, did you worry whether your food would run out before you got money to buy more?: Never true Do you have trouble paying for medicines?: No Do you have trouble getting transportation to medical appointments?: No Do you have trouble paying your heating and electricity bill?: No Do you have trouble taking care of your child, family member or friend?: No Do you have trouble with day-to-day activities such as bathing, preparing meals, shopping, managing finances, etc.?: No Are you currently unemployed and looking for a job?: No Are you interested in more education?: No Please select the resources that you would like help with: None Currently or been in a relationship where the following occur: No concerns reported THRIVE Score: 0 AUDIT C Alcohol Use Questionnaire (AUDIT-C) 1. How often do you have a drink containing alcohol?: 2-4 times a month 2. How many drinks containing alcohol do you have on a typical day when you are drinking?: 1 or 2 3. How often do you have six or more drinks on one occasion?: Never Total Score: 2 ARAM-7 AMB Questionnaire ARAM-7 Date ARAM - 7 assessed: 07/11/24 Feeling nervous, anxious, or on edge: 0 = Not at all Not being able to stop or control worryin = Not at all Worrying too much about different things: 0 = Not at all Trouble relaxin = Not at all Being so restless that it is hard to sit still: 0 = Not at all Becoming easily annoyed or irritable: 0 = Not at all Feeling afraid as if something awful might happen: 0 = Not at all Total ARAM-7 score (0-4 normal; 5-9 mild; 10-14 moderate; 15-21 severe): 0 Source: Developed by Drs. Nain Goss, Ramya Rudolph, Edgard Langston and colleagues, with an educational cornell from [employer]. ARAM-7 Assessment Billing ARAM-7 Assessment Tool: ARAM-7 Assessment 48279 Review of Systems Const All systems reviewed & are unremarkable except as noted in HPI and below Reports no additional complaints Eyes Reports no additional complaints ENT Reports no additional complaints Card Reports no additional complaints Resp Reports no additional complaints GI Reports no additional complaints Reports no additional complaints Physical exam (Primary Care) Vital Signs: Last Vital Signs Resp 18 07/11/24 09:07 BP 120/80 07/11/24 09:07 Pulse Ox 98 07/11/24 09:07 Oxygen Delivery Method Room Air 07/11/24 09:07 Tobacco/Smoking Status: Tobacco use Status Tobacco use date assessed 07/11/24 07/11/24 09:14 Patient Tobacco Use Status Never used Tobacco 07/11/24 09:14 e-Cigarette/Vaping Use Never Used 07/11/24 09:08 PHQ-9: PHQ-9 Score PHQ-9: Total score 1 07/11/24 09:28 Depression Screening Interpretation: Negative Thrive Assessment: Date of Thrive Assessment Date Thrive assessed 07/11/24 07/11/24 09:14 Currently or been in a relationship where the following occur: No concerns reported Const General: no acute distress HENMT Head: Yes normal to inspection Ears: TM's normal bilaterally Throat: Yes posterior oropharynx normal Eyes General: appearance normal, both eyes and all related structures Resp Effort & Inspection: normal respiratory effort Auscultation: clear to auscultation bilaterally Cardio Rhythm: regular rhythm Heart sounds: S1 normal heart sound present and S2 normal heart sound present GI Inspection: Yes normal to inspection Palpation (GI): Soft to palpation Percussion: Yes normal to percussion Auscultation: normal bowel sounds Neuro Cranial nerves: Yes CN's II-XII intact bilaterally Motor exam (neuro): 5/5 motor strength present throughout Romberg Test: Negative Extrem General: Yes no clubbing, cyanosis or edema Coding Level of Care Code Est Pt Level 4 (69454) Complex EM visit Add On G2211 Diagnoses Hyperlipidemia E78.5 CKD (chronic kidney disease) stage 3, GFR 30-59 ml/min N18.30 Chronic kidney disease stage 3 subtype: unspecified whether 3a or 3b Diabetes mellitus E11.9 Neuropathy G62.9 Additional Codes ARAM-7 Assessment Billing - ARAM-7 Assessment Tool: ARAM-7 Assessment 11604 ([id number]) PHQ-9 - 22852 - PHQ-9 Billing: Yes ([id number]) Assessment & Plan Assessment & Plan (1) Hyperlipidemia: Code(s): E78.5 - Hyperlipidemia, unspecified Category: Medical Plan: Continue statin (2) CKD (chronic kidney disease) stage 3, GFR 30-59 ml/min: Comment: Follow-up with nephrology Code(s): N18.30 - Chronic kidney disease, stage 3 unspecified Category: Medical Qualifiers: Chronic kidney disease stage 3 subtype: unspecified whether 3a or 3b Qualified Code(s): N18.30 - Chronic kidney disease, stage 3 unspecified Plan: Avoid nephrotoxins monitor renal function (3) Diabetes mellitus: Code(s): E11.9 - Type 2 diabetes mellitus without complications Category: Medical Plan: A1c is 6.8, ADA diet increase exercise weight loss discussed with the patient follow-up in 3 months with a fasting labs before (4) Neuropathy: Comment: peripheral high sock distribution Code(s): G62.9 - Polyneuropathy, unspecified Category: Medical Plan: For difficulty with the balanced patient will be referred to physical therapy Orders: Orders Comprehensive [place]. Panel Fast 3 Months E11.9 - Type 2 diabetes mellitus without complications, E78.5 - Hyperlipidemia, unspecified, N18.30 - Chronic kidney disease, stage 3 unspecified Hemoglobin A1c 3 Months E11.9 - Type 2 diabetes mellitus without complications, E78.5 - Hyperlipidemia, unspecified, N18.30 - Chronic kidney disease, stage 3 unspecified Microalbumin, Random (w Creat) 3 Months E11.9 - Type 2 diabetes mellitus without complications, E78.5 - Hyperlipidemia, unspecified, N18.30 - Chronic kidney disease, stage 3 unspecified Vitamin B12 and Folate 3 Months G62.9 - Polyneuropathy, unspecified Lipid Panel 3 Months E11.9 - Type 2 diabetes mellitus without complications, E78.5 - Hyperlipidemia, unspecified, N18.30 - Chronic kidney disease, stage 3 unspecified
[2024-07-11 09:07] VITALS: BP 120/80; RESP 18; O2SAT 98
--- OUTSIDE RECORDS SUMMARY | 2024-07-11 09:32 | XMS_ITS | Clinical Summary ---
Author Organization [facility] Address [address] [place] [address] Care Team Providers Care Supervisor Bottle House Cleaners Name Role Phone Renetta Rangel MD Primary Care Provider [phone] Allergies No known active allergies Medications Medication [...] Description 05/18/2024 2:15 PM EST Office Visit [facility] [place] [address] [place] [phone] Jeff Jerez MD Renal oncocytoma of right kidney (Primary Dx); Stage 3a chronic kidney disease (HCC) 05/18/2024 Travel 05/16/2024 Telephone [facility] [place] [address] [place] [address] Jeff Jerez MD 05/09/2024 Orders Only [facility] [address] [place] [address] Jeff Jerez MD 04/28/2024 Telephone [facility] Urologic Surgery [address] [place] [phone] Jeff Jerez MD from Last 3 [...] Description 05/25/2025 10:15 AM EST Office Visit [facility] [place] [address] [place] [phone] Jeff Jerez MD [address] [facility] [address] [place] [address] Health Maintenance Due Date Last Done Comments [...] included. Creatinine 1.44(H) 0.70 - 1.28 mg/dL [facility] Creatinine w/ eGFR 50(L) > OR = 60 mL/min/1.7 3m2 [place] Blood Blood specimen / Unknown 05/22/2024 1:06 PM EST 05/22/2024 1:06 PM EST Narrative [facility] - 05/23/2024 5:55 AM EST FASTING:NO FASTING: NO Jeff Jerez MD LAB BLOOD ORDERABLE [facility] [address] [place] [phone] * (ABNORMAL) POCT Urinalysis Dipstick, Automated (05/18/2024 [...] Leukocyte Esterase, UA Negative Negative Lot Number [id number] Flare Stitcher [place] Urine 05/18/2024 2:14 PM EST [...] referring your patient to us, Brad Bradley [id number] (Electronically Signed - 07/01/2024 17:28) Narrative 07/01/2024 5:28 PM EST MR ABDOMEN WITH AND WITHOUT CONTRAST 05/09/2024 1:15 PM RETAIL AND RESTAURANT ASSOCIATE CLINICAL HISTORY: Male, 78 years old. Biopsy-proven right renal oncocytoma ??Benign neoplasm of right kidney; Other specified disorders of kidney and ureter; Chronic kidney disease, stage 3a. Order History: mri abdomen w/wo renal oncocytoma of right kidney; Patient States: cyst of right kidney, no symptoms; Contrast: 10ml of gadavist power injected 22gRAC [id number] 02/2028; Adverse Contrast Reaction: NO; Additional Notes: [...] WITH AND WITHOUT CONTRAST 05/09/2024 1:15 PM RETAIL AND RESTAURANT ASSOCIATE CLINICAL HISTORY: Male, 78 years old. Biopsy-proven right renal oncocytomaBenign neoplasm of right kidney; Other specified disorders of kidney andureter; Chronic kidney disease, stage 3a. Order History: mri abdomen w/worenal oncocytoma of right kidney; Patient States: cyst of right kidney, no symptoms; Contrast: 10mlof gadavist power injected 22gRAC [id number] 02/2028; Adverse ContrastReaction: NO; Additional Notes: prior [...] Bradley MD 07/01/2024 05:28 PM EST RPWorkstation: [id number] Thank you for referring your patient to us, Brad Bradley [id number] (Electronically Signed - 07/01/2024 17:28) Jeff Jerez MD G LEGACY PROCEDUR ES from Last 3 Months Care Teams Supervisor Bottle House Cleaners Relationship Specialty Start Date End Date Renetta Rangel MD [address] [place] [address] PCP - General 03/08/19
--- OUTSIDE RECORDS SUMMARY | 2024-07-11 09:32 | XMS_ITS | Encounter Summary ---
Author Organization [facility] Address [address] [place] [address] Care Team Providers Care Desktop Publisher Name Role Phone Renetta Rangel MD Primary Care Provider [phone] Encounter Details Date Type Department Care Team (Late Contact Info) Description 03/09/2019 Scanned Document [facility] Urologic Surgery [place] [address] [place] [phone] Provider, MD Sun [address] [place] [address] Social History Tobacco Use Types Packs/Day Years [...] Description 05/25/2025 10:15 AM EST Office Visit [facility] [place] [address] [place] [phone] Jeff Jerez MD [address] [address] documented as of this encounter Visit Diagnoses Not on filedocumented in this encounter Care Teams Desktop Publisher Relationship Specialty Start Date End Date Renetta Rangel MD [address] [place] [address] PCP - General 03/08/19 documented as of this encounter
--- OUTSIDE RECORDS SUMMARY | 2024-07-11 09:32 | XMS_ITS | Encounter Summary ---
Author Organization [facility] Address [address] [place] [address] Care Team Providers Care Select Banker Name Role Phone Renetta Rangel MD Primary Care Provider [phone] Reason for Visit * Reason Comments Advice Only Encounter Details Date Type Department Care Team (Late Contact Info) Description 12/18/2019 Telephone [facility] Urologic Surgery [place] [address] [phone] Jeff Jerez MD [address] [address] Advice Only Social History Tobacco Use Types [...] Description 05/25/2025 10:15 AM EST Office Visit [facility] [place] [address] [place] [phone] Jeff Jerez MD [address] [address] documented as of this encounter Visit Diagnoses Not on filedocumented in this encounter Care Teams Select Banker Relationship Specialty Start Date End Date Renetta Rangel MD [address] [place] [address] PCP - General 03/08/19 documented as of this encounter
--- OUTSIDE RECORDS SUMMARY | 2024-07-11 09:32 | XMS_ITS | Clinical Summary ---
Author Organization [facility] Address [address] [place] [address] Phone Care Team Providers Care Ball Shagger Name Role Phone Renetta Rangel MD Primary Care Provider [phone] Allergies No known active allergies Medications amLODIPine [...] age to complete this topic Insurance MEDICARE [facility] MEDICARE [facility] Care Teams Ball Shagger Relationship Specialty Start Date End Date Renetta Rangel MD [address] [place] [address] PCP - General Internal Medicine 07/17/20
--- OUTSIDE RECORDS SUMMARY | 2024-07-11 09:32 | XMS_ITS | Encounter Summary ---
Author Organization [facility] Address [address] [place] [address] Care Team Providers Care Dining Car Server Name Role Phone Renetta Rangel MD Primary Care Provider [phone] Encounter Details Date Type Department Care Team (Late Contact Info) Description 03/09/2019 Scanned Document [facility] Urologic Surgery [place] [address] [place] [phone] Provider, MD Sun [address] [place] [address] Social History Tobacco Use Types Packs/Day Years [...] Description 05/25/2025 10:15 AM EST Office Visit [facility] [place] [address] [place] [phone] Jeff Jerez MD [address] [address] documented as of this encounter Visit Diagnoses Not on filedocumented in this encounter Care Teams Dining Car Server Relationship Specialty Start Date End Date Renetta Rangel MD [address] [place] [address] PCP - General 03/08/19 documented as of this encounter
--- OUTSIDE RECORDS SUMMARY | 2024-07-11 09:32 | XMS_ITS | Encounter Summary ---
Author Organization [facility] Address [address] [place] [address] Care Team Providers Care Slab Lifting Supervisor Name Role Phone Renetta Rangel MD Primary Care Provider [phone] Reason for Visit * Reason Comments Results Request Encounter Details Date Type Department Care Team ([facility] st Contact Info) Description 04/28/2022 Telephone [facility] Urologic Surgery [address] [phone] Jeff Jerez MD [address] [phone] Results Request Social History Tobacco Use Types [...] Morris LPN - 05/04/2022 9:54 AM EST [place] text message sent to Dr. Jerez regarding patient request for report on 04/20 pathology. documented in this encounter Plan of Treatment Upcoming Encounters Date Type Department Care Team (Late st Contact Info) Description 05/25/2025 10:15 AM EST Office Visit [facility] [place] [address] [place] [phone] Jeff Jerez MD [address] [address] documented as of this encounter Visit Diagnoses Not on filedocumented in this encounter Care Teams Slab Lifting Supervisor Relationship Specialty Start Date End Date Renetta Rangel MD [address] [place] [address] PCP - General 03/08/19 documented as of this encounter
--- OUTSIDE RECORDS SUMMARY | 2024-07-11 09:32 | XMS_ITS | Encounter Summary ---
Author Organization [facility] Address [address] [place] [address] Care Team Providers Care Bottom Turning Lathe Turner Name Role Phone Renetta Rangel MD Primary Care Provider [phone] Reason for Visit * Reason Comments Other Encounter Details Date Type Department Care Team ([facility] Contact Info) Description 07/17/2020 Telephone [facility] Urologic Surgery [place] [address] [phone] Jeff Jerez MD [address] [phone] Other Social History Tobacco Use Types Packs/Day [...] Description 05/25/2025 10:15 AM EST [facility] [place] [address] [place] [phone] Jeff Jerez MD [address] [place] [address] documented as of this encounter Visit Diagnoses Not on filedocumented in this encounter Care Teams Bottom Turning Lathe Turner Relationship Specialty Start Date End Date Renetta Rangel MD [address] [place] [address] PCP - General 03/08/19 documented as of this encounter
--- OUTSIDE RECORDS SUMMARY | 2024-07-11 09:33 | XMS_ITS | Encounter Summary ---
Author Organization [facility] Address [address] [place] [address] Care Team Providers Care Java Enterprise Architect Name Role Phone Renetta Rangel MD Primary Care Provider [phone] Encounter Details Date Type Department Care Team (Late Contact Info) Description 03/09/2019 Scanned Document [facility] Urologic Surgery [place] [address] [place] [phone] Provider, MD Sun [address] [place] [address] Social History Tobacco Use Types Packs/Day Years [...] Description 05/25/2025 10:15 AM EST Office Visit [facility] [place] [address] [place] [phone] Jeff Jerez MD [address] [address] documented as of this encounter Visit Diagnoses Not on filedocumented in this encounter Care Teams Java Enterprise Architect Relationship Specialty Start Date End Date Renetta Rangel MD [address] [place] [address] PCP - General 03/08/19 documented as of this encounter
== END 2024-07-11 11:57 | disposition home or self-care (01) ==
PROVIDERS: PCP Internal Medicine; Visit Provider Internal Medicine
DX: E11.22 Type 2 diabetes mellitus with diabetic chronic kidney disease (principal); N18.30 Chronic kidney disease, stage 3 unspecified; E78.5 Hyperlipidemia, unspecified; G62.9 Polyneuropathy, unspecified

== ENCOUNTER → 2024-07-11 09:04 | Outpatient (BNVA) | payer MEDICARE, OTHER, SELFPAY | PROVIDERS: PCP Internal Medicine; Visit Provider Internal Medicine | DX: E78.5 Hyperlipidemia, unspecified (principal); G62.9 Polyneuropathy, unspecified; E11.9 Type 2 diabetes mellitus without complications; N18.30 Chronic kidney disease, stage 3 unspecified | CPT/HCPCS: 96127; 99212 ==

== ENCOUNTER → 2024-10-05 11:01 | Outpatient (RCR) | payer MEDICARE, SELFPAY | END | disposition home or self-care (01) | LOC: HO.PTCHIC 03-15 07:56 | PROVIDERS: PCP Internal Medicine; Visit Provider Internal Medicine | DX: M54.32 Sciatica, left side (principal) | CPT/HCPCS: 97110 ==

== ENCOUNTER 2024-10-09 07:59 | Outpatient (REF) | payer MEDICARE, OTHER, SELFPAY ==
--- NOTE | ~2024-10-09 | XR_ITS ---
EXAMINATION: XR CHEST CLINICAL INFORMATION: R05.9 - Cough, unspecified COMPARISON: 09/10/2020. TECHNIQUE: 2 views of the chest were obtained. FINDINGS: The cardiac, hilar, and mediastinal contours are normal. The lungs are diffusely hyperaerated, however clear bilaterally. There is no pneumothorax or pleural effusion. There is no focal osseous or soft tissue abnormality. There are degenerative changes within the spine, suggestion of possible ankylosing spondylitis. XR/XR chest 2V IMPRESSION: No active pulmonary disease. Electronically signed by: Sanju Hernandez MD 10/09/2024 08:57 AM EDT
--- OUTSIDE RECORDS SUMMARY | 2024-10-09 09:00 | XMS_ITS | Encounter Summary ---
Author Organization [facility] Address [address] [place] [address] Care Team Providers Care Cardiac Cath Technician Name Role Phone Renetta Rangel MD Primary Care Provider [phone] Reason for Visit * Reason Comments Other Encounter Details Date Type Department Care Team (Late Contact Info) Description 07/17/2020 Telephone [facility] Urologic Surgery [place] [address] [phone] Jeff Jerez MD [address] [place] [phone] Other Social History Tobacco Use Types Packs/Day [...] Description 05/25/2025 10:15 AM EST Office Visit [facility] Urology [address] [address] Jeff Jerez MD [address] [place] [phone] documented as of this encounter Visit Diagnoses Not on filedocumented in this encounter Care Teams Cardiac Cath Technician Relationship Specialty Start Date End Date Renetta Rangel MD [address] [place] [phone] PCP - General 03/08/19 documented as of this encounter
--- OUTSIDE RECORDS SUMMARY | 2024-10-09 09:00 | XMS_ITS | Clinical Summary ---
Author Organization [facility] Address [address] [place] [address] Care Team Providers Care Fruit Or Nut Farmer Name Role Phone Renetta Rangel MD Primary Care Provider [phone] Allergies No known active allergies Medications metFORMIN [...] Description 05/25/2025 10:15 AM EST Office Visit [facility] Urology [address] [address] Jeff Jerez MD [address] [place] [phone] Health Maintenance Due Date Last Done Comments [...] topic Insurance MEDICARE PART A & B [facility] Care Teams Fruit Or Nut Farmer Relationship Specialty Start Date End Date Renetta Rangel MD [address] [place] [address] PCP - General 03/08/19
--- OUTSIDE RECORDS SUMMARY | 2024-10-09 09:00 | XMS_ITS | Encounter Summary ---
Author Organization [facility] Address [address] [place] [address] Care Team Providers Care Brass Bobbin Winder Name Role Phone Renetta Rangel MD Primary Care Provider [phone] Reason for Visit * Reason Comments Results Request Encounter Details Date Type Department Care Team ([facility] st Contact Info) Description 04/28/2022 Telephone [facility] Urologic Surgery [place] [address] [phone] Jeff Jerez MD [address] [phone] Results Request Social History Tobacco Use Types [...] Morris LPN - 05/04/2022 9:54 AM EST [place] text message sent to Dr. Jerez regarding patient request for report on 04/20 pathology. documented in this encounter Plan of Treatment Upcoming Encounters Date Type Department Care Team (Late st Contact Info) Description 05/25/2025 10:15 AM EST Office Visit [facility] Urology [address] [phone] Jeff Jerez MD [address] [address] documented as of this encounter Visit Diagnoses Not on filedocumented in this encounter Care Teams Brass Bobbin Winder Relationship Specialty Start Date End Date Renetta Rangel MD [address] [place] [phone] PCP - General 03/08/19 documented as of this encounter
--- OUTSIDE RECORDS SUMMARY | 2024-10-09 09:00 | XMS_ITS | Encounter Summary ---
Author Organization [facility] Address [address] [place] [address] Care Team Providers Care Family Consumer Science Fcs Teacher Name Role Phone Renetta Rangel MD Primary Care Provider Reason for Visit * Reason Comments Advice Only Encounter Details Date Type Department Care Team (Late Contact Info) Description 12/18/[address] [facility] Urologic Surgery [place] [address] [phone] Jeff Jerez MD [address] [phone] Advice Only Social History Tobacco Use Types [...] Description 05/25/2025 10:15 AM EST Office Visit [facility] Urology [employer] [address] [place] [address] Jeff Jerez MD [address] [place] [phone] documented as of this encounter Visit Diagnoses Not on filedocumented in this encounter Care Teams Family Consumer Science Fcs Teacher Relationship Specialty Start Date End Date Renetta Rangel MD [address] [place] [address] PCP - General 03/08/19 documented as of this encounter
--- OUTSIDE RECORDS SUMMARY | 2024-10-09 09:01 | XMS_ITS | Encounter Summary ---
Author Organization [facility] Address [address] [place] [address] Care Team Providers Care Supervisor Telephone Answering Service Name Role Phone Renetta Rangel MD Primary Care Provider [phone] Encounter Details Date Type Department Care Team (Late Contact Info) Description 03/09/2019 Scanned Document [facility] Urologic Surgery [place] [address] [place] [address] Provider, MD Sun [address] [place] [address] Social History Tobacco Use Types Packs/Day Years [...] Description 05/25/2025 10:15 AM EST Office Visit [facility] Urology [place] [address] [place] [address] Jeff Jerez MD [address] [phone] documented as of this encounter Visit Diagnoses Not on filedocumented in this encounter Care Teams Supervisor Telephone Answering Service Relationship Specialty Start Date End Date Renetta Rangel MD [address] [place] [address] PCP - General 03/08/19 documented as of this encounter
--- OUTSIDE RECORDS SUMMARY | 2024-10-09 09:01 | XMS_ITS | Encounter Summary ---
Author Organization [facility] Address [address] [place] [address] Care Team Providers Care Addiction Therapist Name Role Phone Renetta Rangel MD Primary Care Provider [phone] Encounter Details Date Type Department Care Team (Late Contact Info) Description 03/09/2019 Scanned Document [facility] Urologic Surgery [place] [address] [place] [address] Provider, MD Sun [address] [place] [phone] Social History Tobacco Use Types Packs/Day Years [...] Description 05/25/2025 10:15 AM EST Office Visit [facility] Urology [place] [address] [place] [address] Jeff Jerez MD [address] [address] documented as of this encounter Visit Diagnoses Not on filedocumented in this encounter Care Teams Addiction Therapist Relationship Specialty Start Date End Date Renetta Rangel MD [address] [place] [address] PCP - General 03/08/19 documented as of this encounter
--- OUTSIDE RECORDS SUMMARY | 2024-10-09 09:01 | XMS_ITS | Clinical Summary ---
Author Organization [facility] Address [address] [place] [address] Phone Care Team Providers Care Maintenance And Operations Supervisor Name Role Phone Renetta Rangel MD Primary Care Provider [phone] Allergies No known active allergies Medications amLODIPine [...] age to complete this topic Insurance Medicare [facility] Medicare [facility] Care Teams Maintenance And Operations Supervisor Relationship Specialty Start Date End Date Renetta Rangel MD [address] [place] [address] PCP - General Internal Medicine 07/17/20
--- OUTSIDE RECORDS SUMMARY | 2024-10-09 09:01 | XMS_ITS | Encounter Summary ---
Author Organization [facility] Address [address] [place] [address] Care Team Providers Care Executive Director Sheltered Workshop Name Role Phone Renetta Rangel MD Primary Care Provider [phone] Encounter Details Date Type Department Care Team (Late Contact Info) Description 03/09/2019 Scanned Document [facility] Urologic Surgery [place] [address] [place] [address] Provider, MD Sun [address] [place] [phone] Social History Tobacco Use Types Packs/Day Years [...] Description 05/25/2025 10:15 AM EST Office Visit [facility] Urology [place] [address] [place] [address] Jeff Jerez MD [address] [address] documented as of this encounter Visit Diagnoses Not on filedocumented in this encounter Care Teams Executive Director Sheltered Workshop Relationship Specialty Start Date End Date Renetta Rangel MD [address] [place] [address] PCP - General 03/08/19 documented as of this encounter
== END 2024-10-09 08:00 | disposition home or self-care (01) ==
LOC: HO.HMGCX 07:59
PROVIDERS: PCP Internal Medicine; Visit Provider Registered Nurse Emergency
DX: J06.9 Acute upper respiratory infection, unspecified (principal); R05.9 Cough, unspecified
CPT/HCPCS: 71046; 99212

== ENCOUNTER 2024-10-09 07:59 | Outpatient (AMB) | payer MEDICARE, OTHER, SELFPAY ==
--- OUTSIDE RECORDS SUMMARY | 2024-10-09 08:03 | XMS_ITS | Encounter Summary ---
Author Organization [facility] Address [address] [place] [address] Care Team Providers Care Buckle Wire Inserter Name Role Phone Renetta Rangel MD Primary Care Provider [phone] Reason for Visit * Reason Comments Other Encounter Details Date Type Department Care Team (Late Contact Info) Description 07/17/2020 Telephone [facility] Urologic Surgery [place] [address] [phone] Jeff Jerez MD [address] [place] [phone] Other Social History Tobacco Use Types Packs/Day Years Used Date Smoking Tobacco: Never Smokeless Tobacco: Never Alcohol Use Standard Drinks/Week Comments Yes 1 (1 standard drink = 0.6 oz pur e alcohol) occ Sex and Gender Information Value Date Recorded Sex Assigned at Male 05/16/2024 11:54 AM EST Legal Sex Male 2:22 PM EDT Gender Identity Male 05/16/2024 11:54 AM EST [...] 10:15 AM EST Office Visit [facility] Urology [address] [phone] Jeff Jerez MD [address] [place] [phone] documented as of this encounter Visit Diagnoses Not on filedocumented in this encounter Care Teams Buckle Wire Inserter Relationship Specialty Start Date End Date Renetta Rangel MD [address] [place] [address] PCP - General 03/08/19 documented as of this encounter
--- OUTSIDE RECORDS SUMMARY | 2024-10-09 08:03 | XMS_ITS | Encounter Summary ---
Author Organization [facility] Address [address] [place] [address] Care Team Providers Care Personnel Adviser Name Role Phone Renetta Rangel MD Primary Care Provider [phone] Reason for Visit * Reason Comments Results Request Encounter Details Date Type Department Care Team ([facility] st Contact Info) Description 04/28/2022 Telephone [facility] Urologic Surgery [place] [address] [phone] Jeff Jerez MD [address] [phone] Results Request Social History Tobacco Use Types [...] Morris LPN - 05/04/2022 9:54 AM EST [place] text message sent to Dr. Jerez regarding patient request for report on 04/20 pathology. documented in this encounter Plan of Treatment Upcoming Encounters Date Type Department Care Team (Late st Contact Info) Description 05/25/2025 10:15 AM EST Office Visit [facility] Urology [address] [address] Jeff Jerez MD [address] [address] documented as of this encounter Visit Diagnoses Not on filedocumented in this encounter Care Teams Personnel Adviser Relationship Specialty Start Date End Date Renetta Rangel MD [address] [place] [address] PCP - General 03/08/19 documented as of this encounter
--- OUTSIDE RECORDS SUMMARY | 2024-10-09 08:03 | XMS_ITS | Clinical Summary ---
Author Organization [facility], Located Within [facility] Address [address] [place] [address] Care Team Providers Care Crab Fisher Name Role Phone Renetta Rangel MD Primary Care Provider [phone] Allergies No known active allergies Medications metFORMIN (GLUCOPHAGE) 500 MG tablet Take 1 tablet (500 mg total) by mouth once. Active glipiZIDE (GLUCOTROL XL) 2.5 MG 24 hr tablet Take 1 tablet (2.5 mg total) by mouth every morning with breakfast. Active OMEprazole (PriLOSEC) 20 MG capsule Take 1 capsule (20 mg total) by mouth every morning before breakfast. Active lisinopril (PRINIVIL,ZeSTR IL) 10 MG tablet Take 1 tablet (10 [...] III 04/21/20 19 Calculus of ureter 04/21/2019 Family History Medical History Relation Name Comments [...] Description 05/25/2025 10:15 AM EST Office Visit [facility] Urology [address] [address] Jeff Jerez MD [address] [place] [address] Health Maintenance Due Date Last Done Comments Hepatitis C Virus Screening 1945 DTaP/Tdap/Td Vaccines (1 - Tdap) 10/04/1966 Pneumococcal Vaccines 50+ (1 of 1 - PCV) 10/04/1997 Zoster (Shingles) Vaccine (1 of 2) 10/04/1997 RSV Vaccine 60 years and old er and Patients (1 - 1-dose 75+ series) 10/04/2022 COVID-19 Vaccine (2023-2 5 season) 2024 Influenza Vaccine 01/05/2025 Hepatitis B Vaccines Aged Out No long er eligible based on patient's age to complete this topic Insurance MEDICARE PART A & B [facility] Care Teams Crab Fisher Relationship Specialty Start Date End Date Renetta Rangel MD [address] [place] [address] PCP - General 03/08/19
--- OUTSIDE RECORDS SUMMARY | 2024-10-09 08:03 | XMS_ITS ---
Author Organization [facility] Address [address] [place] [address] Care Team Providers Care Health And Safety Technician Name Role Phone Renetta Rangel MD Primary Care Provider Edy Fonseca Unavailable [phone] Allergies No Known Allergies REASON FOR VISIT At Risk Footcare, Ingrown Nail Medications Medication SIG (Take, Route, Frequency, Duration) Notes Start Date End Date Status Tradjenta 5 MG Oral for 30 Not -Taking glipiZIDE 5 MG 1 tablet Orally Once a day Not-Taking Gabapentin Not-Takin g Doxycycline Hyclate Not-Taking Simvastatin 20 MG (Prior Auth: Rx Ref#:[id number]) Oral for 90 Not-Taking Extra Depth Orthopedic [...] Active Lisinopril 10 MG (Prior Auth: Rx Ref#:[id number]) Oral for 90 Active Farxiga Active Atorvastatin [...] Ordered Date Performed Result Body Sit e 44921-LDHIGZH NAIL, 6 OR MORE 02/09/2024 N/A 64643-Mlvqujog Plate 02/09/2024 N/A 88319-BCAB SKIN LESIONS, OVER 4 02/09/2024 N/A Encounters Encounter Location Date Provider Diagnosis [facility] [place] [address] [place] [phone] 02/09/2024 Edy Ann Type 2 diabetes mellitus [...] Treatment Pending Test Test Name Order Date 66731-XHHDPER NAIL, 6 OR MORE 02/09/2024 39200-Equgvppi Plate 02/09/2024 22065-LCDA SKIN LESIONS, OVER 4 02/09/20 24 Next Appt Details Follow Up: prn, Reason: Provider Name:Edy Ann , 11/09/2024 10:30:00 AM, [address] [facility], Suite [facility], [place], [address], Procedure Notes * Category Sub-Category Detail Notes [...] Motrin was recommended for pain or discomfort (30080) , DIABETES: Pt was advised as to [...] use of a nail nipper and/or dremel-type centerless grinder operator, to a more viable healthy nail plate or bed tissue 6-10. Silver nitrate used for any petechial bleeding as necessary. Definitive antifungal treatment options have been reviewed and discussed with the patient. The patient chooses, no pharmaceutical tx - 85137 Keratoma Treatment Parring or Cutting o f Benign Hyperkeratotic Lesion(s) More than 4 Lesions (-57) - The Benign hyperkeratotic lesions, as described above were pared, and/or cut utilizing a sterile 15 blade, tissue nippers, and/or dremel - 65750 Progress Notes * Kevin LINDO MDOB: (78 yo M)Acc No.[id number]:02/09/2024 Progress Note Patient:?HankOtilio kendrickel Mckenna Provider:?Edy Ann [...] Lisinopril 10 MG Tablet (Prior Auth: Rx Ref#:[id number]) Oral metFORMIN HCl 500 MG Tablet 1 [...] Lisinopril 10 MG Tablet (Prior Auth: Rx Ref#:[id number]) Oral Taking metFORMIN HCl 500 MG Tablet 1 tablet with meals Orally Twice a dayTaking Omeprazole 20 MG Capsule Delayed Release 1 capsule Orally Once a dayTaking Extra Depth Orthopedic Shoes (1 Pair) with Customized Heat Molded Multidensity Innersoles (3 Pair) as directed Dx: NIDDM/Polyneuropathy (E11.42), Hammertoe Foot Deformity (M20.41,M20.42), Preulcerative Skin Lesion(s) (L85.1Not-Taking/PRNSimvastatin 20 MG Tablet (Prior Auth: Rx Ref#:[id number]) Oral Doxycycline Hyclate Gabapentin glipiZIDE 5 MG Tablet 1 tablet Orally Once a dayTradjenta 5 MG Tablet Oral Medication List reviewed and reconciled with the patientNot-Taking/PRN Simvastatin 20 MG Tablet (Prior Auth: Rx Ref#:[id number]) Oral Not-Taking/PRN Doxycycline Hyclate Not-Taking/PRN Gabapentin Not-Taking/PRN [...] , TA? Plan: * Treatment: 2.?Ingrown nail?Procedure: 48963-Jmojhyus Plate * Procedures:?Debride Nail 6-10:?Nail debridement?Performance of this nail treatment by a nonprofessional would put this patients foot and overall health at risk. Therefore, nail debridement was performed extensively to reduce/remove overall nail length, girth, thickness, subungual debris, and necrotic tissue, by manual and/or electrical means through the use of a nail nipper and/or dremel-type centerless grinder operator, to a more viable healthy nail plate or bed tissue 6-10. Silver nitrate used for any petechial bleeding as necessary. Definitive antifungal treatment options have been reviewed and discussed with the patient. The patient chooses, no pharmaceutical tx - 03641.?Keratoma Treatment:?Parring or Cutting of Benign Hyperkeratotic Lesion(s)?More than 4 Lesions (-57) - The Benign hyperkeratotic lesions, as described above were pared, and/or cut utilizing a sterile 15 blade, tissue nippers, and/or dremel - 72060.?Nail Avulsion:?Location?Lateral nail border?,?TA.?Anesthesia?was deferred - NEUROPATHY: patient [...] Motrin was recommended for pain or discomfort (09907) , DIABETES: Pt was advised as to the risk of delayed or nonhealing due to diabetes. Pt is to call the office with any questions, concerns, or complications.? * Procedure Codes:?99778 DEBRI DE NAIL, 6 OR MORE, Modifiers: XS 32337 Avulsion Plate, Modifiers: XS , [id number] TRIM SKIN LESIONS, OVER 4, Modifiers: XS * Follow Up:?prn * Images: * Sign off status: Completed true * Provider:?Edy Ann DPM Date:?2023 Generated for Tiffani domínguez/Cedrick/Annie on:?10/09/2024 08:03 AM EDT History and Physical Notes * HPI (History [...]
--- OUTSIDE RECORDS SUMMARY | 2024-10-09 08:04 | XMS_ITS | Encounter Summary ---
Author Organization [facility] Address [address] [place] [address] Care Team Providers Care Eligibility Supervisor Name Role Phone Renetta Rangel MD Primary Care Provider [phone] Encounter Details Date Type Department Care Team (Late Contact Info) Description 03/09/2019 Scanned Document [facility] U[facility] Surgery [place] [address] [place] [address] Provider, MD Sun [address] [place] [address] Social History Tobacco Use Types Packs/Day Years [...] Description 05/25/2025 10:15 AM EST Office Visit [facility] Urology [address] [place] [address] Jeff Jerez MD [address] [address] documented as of this encounter Visit Diagnoses Not on filedocumented in this encounter Care Teams Eligibility Supervisor Relationship Specialty Start Date End Date Renetta Rangel MD [address] [place] [address] PCP - General 03/08/19 documented as of this encounter
--- OUTSIDE RECORDS SUMMARY | 2024-10-09 08:04 | XMS_ITS | Clinical Summary ---
Author Organization [facility] Address [address] [place] [address] Phone Care Team Providers Care Utility Worker Driver Name Role Phone Renetta Rangel MD Primary Care Provider [phone] Allergies No known active allergies Medications amLODIPine [...] Due Date Last Done Comments Pneumococcal Vaccine: 50+ Ye ars (1 of 2 - PCV) 10/04/1966 Influenza Vaccine (Season Ended) 2025 Hepatitis B Vaccine Aged Out No longe r eligible based on patient's age to complete this topic Insurance Medicare [facility] Medicare [facility] Care Teams Utility Worker Driver Relationship Specialty Start Date End Date Renetta Rangel MD [address] [place] [address] PCP - General Internal Medicine 07/17/20
--- OUTSIDE RECORDS SUMMARY | 2024-10-09 08:04 | XMS_ITS ---
Author Organization [facility] Address [address] [place] [address] Care Team Providers Care Hammersmith Helper Name Role Phone Renetta Rangel MD Primary Care Provider Edy Fonseca Unavailable [phone] Allergies No Known Allergies REASON FOR VISIT At Risk Footcare, Ingrown Nail Medications Medication SIG (Take, Route, Frequency, Duration) Notes Start Date End Date Status glipiZIDE 5 MG 1 tablet Orally Once a day Not-Taking Doxycycline Hyclate Not-Taking Gabapentin Not-Takin g Simvastatin 20 MG (Prior Auth: Rx Ref#:[id number]) Oral for 90 Not-Taking Tradjenta 5 MG Oral for 30 Not -Taking metFORMIN HCl 500 MG 1 tablet with meals Orally Twice a day Active Omeprazole 20 MG 1 capsule Orally Onc e a day 02/28/2015 Active Extra Depth Orthopedic Shoes (1 Pair) with Customized Heat Molded Multidensity Innersoles (3 Pair) as directed Dx: NIDDM/Polyneuropathy (E11.42), Hammertoe Foot Deformity (M20.41,M20.42), Preulcerative Skin Lesion(s) (L85.1 08/11/2023 Active Farxiga Active Lisinopril 10 MG (Prior Auth: Rx Ref#:[id number]) Oral for 90 Active amLODIPine Besylate 10 MG 1 tablet Orally Once a day 02/28/2015 Active Ammonium Lactate 12 % 1 application to affected area Externally Twice a day to dry areas of skin on feet for 30 days 11/18/2016 Active Atorvastatin Calcium Active Social History Tobacco Use: Social History Observation Description Date Details (start date - stop date) Never Smoker NA - NA Tobacco Use/Smoking Question Answer Notes Are you a: nonsmoker Additional Findings: Tobacco Non-User Current no n-smoker Tobacco use other than smoking: Question Answer Notes Are you an other tobacco user? No Vital Signs Height 6ft 3in in 08/10/2024 Weight 220 lbs 08/10/2024 BMI 27.5 kg/m2 08/10/2024 Blood pressure systolic 124 mm Hg 08/11/19 25 Blood pressure diastolic 79 mm Hg 025 Procedures Procedure Date Ordered Date Performed Result Body Sit e 43266-KIJKPGC NAIL, 6 OR MORE 08/10/2024 N/A 04929-Jltsfpdk Plate 08/10/2024 N/A 16863-TBAG SKIN LESIONS, OVER 4 08/10/2024 N/A Encounters Encounter Location Date Provider Diagnosis [facility] [place] [address] [place] [address] 08/10/2024 Edy Ann Type 2 diabetes mellitus with diabetic polyneuropathy E11.42 ; Tinea unguium B35.1 and Ingrown nail L60.0 Assessments Encounter Date Diagnosis (ICD Code) Assessment Notes Treatment Notes Treatment Clinical Notes Section Notes 08/10/2024 Type 2 diabetes mellitus with diabetic polyneuropathy (ICD-10 - E11.42) 08/10/2024 Tinea unguium (ICD-10 - B35.1) 08/10/2024 Ingrown nail (ICD-10 - L60.0) Plan Of Treatment Pending Test Test Name Order Date 66591-SVFVUTE NAIL, 6 OR MORE 08/10/2024 82134-Pnaejbdf Plate 08/10/2024 20904-ODEG SKIN LESIONS, OVER 4 08/11/19 25 Next Appt Details Follow Up: prn, Reason: Provider Name:Edy Ann , 11/09/2024 10:30:00 AM, [address] [facility] [place], [address] [facility], [place], [address], Procedure Notes * Category Sub-Category Detail Notes [...] Motrin was recommended for pain or discomfort (94904), DIABETES: Pt was advised as to the risk of delayed or nonhealing due to diabetes. Pt is to call the office with any questions, concerns, or complications Anesthesia was deferred - NEURO ARABELLA: patient has medically documented neuropathic condition affecting sensation Location Lateral nail border, T5 Debride Nail 6-10 Nail debridement Due to the cl inical pathology outlined in the exam findings, performance of this nail treatment is medically necessary as its management by an unskilled/untrained nonprofessional would put this patients foot and overall health at risk. Therefore, debridement to affected nail(s), as described in exam ( TA, T1, T2, T3, T4, T5, T6, T7, T8, T9 ), was performed exclusively by the physician of record to reduce/remove overall nail length, girth, thickness, subungual debris, and necrotic tissue, by manual and/or electrical means through the use of a nail nipper and/or dremel-type roll contour grinder, to a more viable healthy nail [...] to maintain effectiveness in symptomatic relief - 45006 Keratoma Treatment Parring or Cutting o f Benign Hyperkeratotic Lesion(s) (-57) More than 4 Lesions - Due to the a t risk nature of the patients medical condition as documented in the exam findings, performance of this keratoderma treatment is medically necessary as its management by an unskilled/untrained nonprofessional would put this patients foot and overall health at risk. Therefore, the benign hyperkeratotic lesions, ( 6 ) in total, locations as stated and described in the exam ( Medial, Plantar, T2, Medial plantar, IPJ, T5, SUB MTH (s), 1, B/L, Plantar, Heel, B/L ), were pared, and/or cut utilizing a sterile 15 blade, tissue nippers, and/or power dremel instrumentation by the physician of [facility] - [address]2353 Progress Notes * Kevin LINDO MDOB: (78 yo M)Acc No.[id number]:08/10/2024 Progress Note Patient:?Kevin LINDO Provider:?Edy Ann DPM :1945???Age:78 Y???Sex:Male Socrates e:08/10/2024 Address:[address] [place], [place] [id number] Pcp:Renetta Rangel MD Subjective: * Chief Complaints: * ???At Risk FootcareIngrown N ail * HPI: ???At Risk footcare:?Pt States Last PCP Visit:?Date?07/11/2024 * ROS:?General/Constitutional:?Nausea?denies.?Vomiting?denies.?Hunger Thirst?denies.?Loss appetite?denies.?Chills?denies.?Fatigue?denies.?Fever?denies.?Night Sweats?denies.?Unexplained weight loss?denies.?Ophthalmologic:?Blurred vision?denies.?Red eye?denies.?HEENTM:?Dentures?denies.?Dizziness?denies.?Glasses/contacts?admits.?Retinopathy?den ies.?Blurred/double vision?denies.?TMJ?denies.?Discharge/drainage?denies.?Implants?denies.?Hard of hearing admits.?Difficulty chewing/swallowing/speaking?denies.?Nose bleeds?denies.?Sore mouth?denies.?Swollen glands?denies.?Respiratory:?On O xygen?denies.?Pneumonia/pleurisy?denies.?Bronchitis?denies.?Emphysema?denies.?Co ughing?denies.?Cough blood?denies.?Shortness of breath?denies.?Wheezing?denies.?Cardiovascular:?Pacemaker?denies.?MVP?denies.?WPW?denies.?CHF?denies.?Heart attack?denies.?Septal defect?denies.?Rapid beat?denies.?Chest pain ?denies.?Atrial Fib.?denies.?Murmur/Palpitations?denies.?Gastrointestinal:?Hemorrhoids?denies.?Stomach/Abdominal pain?denies.?Dark blood stool?denies.?Irritable bowel ?denies.?Constipation?denies.?Diarrhea?admits.?Vomiting?denies.?Hematology:?Swelling?admits.?Bruising?denies.?Bleeding problem?denies.?Genitourinary:?Blood urine?denies.?Frequent/Painfu/urination/bladder control?denies.?Kidney stones?denies.?Infection (UTI)?denies.?Nephropathy?denies.?Musculoskeletal:?Hammertoes?admits.?Bunions?denies.?Scoliosis/kyphosis?denies.?Muscle cramps / walking?denies.?Generalized aches and pains?denies.?Weakness?denies.?Integ.:?Gan?denies.?Scars?denies.?Corns/calluses?admits.?Ingrown nails?admits.?Painful nails?denies.?Rashes?denies.?Neurologic:?Difficulty sleeping?denies.?Bipolar?denies.?Brain disorder?denies.?Balance t rouble?denies.?Confusion?denies.?Fainting/blackouts?denies.?Headache?denies.?Valentín mors?denies.? * Medical History:? * Surgical History:?tonsillect beatris rotator cuff tear repair 11/29/17[facility] biopsy kidney 05/2019 * Hospitalization/Major Diagno stic Procedure:?[facility] rotator cuff surgery left arm 11[place]29/[facility] Kidney stone 01/14/[facility] pneumonia 09/2020[facility] biopsy kidney 04/20/22[facility] heart monitor, 2 days 09/2022 * Family History:?Mother: dece ased, diagnosed with Unspecified essential hypertension, Unspecified heart disease.?Father: .?Daughter(s): alive.?Spouse: alive.?1 son(s) , 1 daughter(s) - healthy. .? * Social History:?Tobacco Use:?Tobacco Use/Smoking?Are you a:?nonsmoker ?Additional Findings: Tobacco Non-User?Current non-smoker ?Tobacco use other than smoking?Are you an other tobacco user??No ???Miscellaneous:?Caffeine: yes, 1 cup per day. ?Children: yes, 2. ?Exercise: yes, walking, gardening/yard work. ?Living with: spouse. ?Marital status: . 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 * Medications:?TakingamLODIPin e Besylate 10 MG Tablet 1 tablet Orally Once a day Ammonium Lactate 12 % Cream 1 application to affected area Externally Twice a day to dry areas of skin on feet Atorvastatin Calcium Farxiga Lisinopril 10 MG Tablet (Prior Auth: Rx Ref#:[id number]) Oral metFORMIN HCl 500 MG Tablet 1 [...] Lisinopril 10 MG Tablet (Prior Auth: Rx Ref#:[id number]) Oral Taking metFORMIN HCl 500 MG Tablet 1 tablet with meals Orally Twice a day Taking Omeprazole 20 MG Capsule Delayed Release 1 capsule Orally Once a day Taking Extra Depth Orthopedic Shoes (1 Pair) with Customized Heat Molded Multidensity Innersoles (3 Pair) as directed Dx: NIDDM/Polyneuropathy (E11.42), Hammertoe Foot Deformity (M20.41,M20.42), Preulcerative Skin Lesion(s) (L85.1 Not-Taking/PRNSimvastatin 20 MG Tablet (Prior Auth: Rx Ref#:[id number]) Oral Doxycycline Hyclate Gabapentin glipiZIDE 5 MG Tablet 1 tablet Orally Once a day Tradjenta 5 MG Tablet Oral Medication List reviewed and reconciled with the patientNot-Taking/PRN Simvastatin 20 MG Tablet (Prior Auth: Rx Ref#:[id number]) Oral Not-Taking/PRN Doxycycline Hyclate Not-Taking/PRN Gabapentin Not-Taking/PRN glipiZIDE 5 MG Tablet 1 tablet Orally Once a day Not-Taking/PRN Tradjenta 5 MG Tablet Oral Medication List reviewed and reconciled with the patient * Allergies:?N.K.D.A.yes[Aller gies Verified] Objective: * Vitals:?Ht: 6ft 3in, Wt: 220 , BMI: 27.5, Shoe size: 11, BP: 124/79 mm Hg, BS: not taken, Ht-cm: 190.5 cm, Wt-k.79 kg. * ???Past Orders: ???Lab:HEMOGLOBIN A1C (GLYCO HEMOGLOBIN) (Order Date - 07/08/2024) (Collection Date & Time - 07/08/2024 09:59 AM) ? Value Reference Range ?HEMOGLOBIN A1C % (HH) 6.8 * Examination: ???Ophthalmology Referral: ?DIABETES EYE EXAM?Procedure Performed:?Yes ?Date of Exam Performed?01/06/2024 ?Diabetic Retinopathy Screening:?Yes ?Retinal Screening Performed:?Yes ?Findings of Diabetic Eye Exam:?no retinopathy?Neurological: ?SENSORY:?Neurological exam demonstrates, reduced light touch sensation, reduced sharp/dull discrimination lower extremity, reduced vibration lower extremity, plantar aspects, B/L, 5.07 monofilament test performed at plantar aspects of 5 varied sites per foot shows sensation, reduced, B/L.?Nails: ?NAILS are:?Elongated, overgrown, dystrophic, lytic, greater than 3mm thick, discolored and friable with crumbly malodorous subungual debris , TA, T1, T2, T3, T4, T5, T6, T7, T8, T9.?Dermatologic: ?SKIN FINDINGS:?Skin exam reveals Keratotic lesion(s) located at, Medial, Plantar, T2, Medial plantar, IPJ, T5, SUB MTH (s), 1, B/L, Plantar, Heel, B/L.?Ingrown Nail: ?INSPECTION:?Reveals nail incurvation, dull pain on palpation due to neuropathy, groove hypertrophy, Lateral nail border, T5.? Assessment: * Assessment: 1.?Type 2 diabetes mellitus with diabetic polyneuropathy - E11.42 (Primary)???2.?Tinea unguium - B35.1???3.?Ingrown nail - L60.0???Specify :Lateral nail border,?T5??? Plan: * Treatment: 2.?Ingrown nail?Procedure: 49534-Bynoueeu Plate * Procedures:?Debride Nail 6-10:?Nail debridement?Due to the clinical pathology outlined in the exam findings, performance of this nail treatment is medically necessary as its management by an unskilled/untrained nonprofessional would put this patients foot and overall health at risk. Therefore, debridement to affected nail(s), as described in exam ( TA, T1, T2, T3, T4, T5, T6, T7, T8, T9 ), was performed exclusively by the physician of record to reduce/remove overall nail length, girth, thickness, subungual debris, and necrotic tissue, by manual and/or electrical means through the use of a nail nipper and/or dremel-type roll contour grinder, to a more viable healthy nail plate or bed tissue 6- 10 nails in total. Silver nitrate was used for any petechial bleeding as necessary. Definitive antifungal treatment options, both pharmaceutical and surgical, have been reviewed and discussed with the patient. The patient solely prefers the use of intermittent/as needed professional debridement services for their nail condition and understands the need for additional periodic treatments to maintain effectiveness in symptomatic relief - 87258.?Keratoma Treatment:?Parring or Cutting of Benign Hyperkeratotic Lesion(s)?(-57) More than 4 Lesions - Due to the at risk nature of the patients medical condition as documented in the exam findings, performance of this keratoderma treatment is medically necessary as its management by an unskilled/untrained nonprofessional would put this patients foot and overall health at risk. Therefore, the benign hyperkeratotic lesions, ( 6 ) in total, locations as stated and described in the exam (?Medial,?Plantar,?T2,?Medial plantar,?IPJ,?T5,?SUB MTH (s),?1,?B/L,?Plantar,?Heel,?B/L?), were pared, and/or cut utilizing a sterile 15 blade, tissue nippers, and/or power dremel instrumentation by the physician of record - 41430.?Nail Avulsion:?Location?Lateral nail border,?T5.?Anesthesia?was deferred - NEUROPATHY: patient has medically documented [...] Motrin was recommended for pain or discomfort (41546), DIABETES: Pt was advised as to the risk of delayed or nonhealing due to diabetes. Pt is to call the office with any questions, concerns, or complications.? * Procedure Codes:?38175 DEBRI DE NAIL, 6 OR MORE, Modifiers: XS 04359 Avulsion Plate, Modifiers: XS , [id number] TRIM SKIN LESIONS, OVER 4, Modifiers: XS * Follow Up:?prn * Images: * Sign off status: Completed true * Provider:?Edy Ann DPM Date:?2024 Generated for Tiffani domínguez/Cedrick/Annie on:?10/09/2024 08:04 AM EDT History and Physical Notes * HPI (History of Present Illness) Category Sub-Category Detail Notes Category Not es At Risk footcare Pt States Last PCP Visit: Date: 5 Examination Category Sub-Category Detail Notes Category Not es Ingrown Nail INSPECTION: Reveals nail inc urvation, dull pain on palpation due to neuropathy, groove hypertrophy, Lateral nail border, T5 Neurological SENSORY: Neurological exa m demonstrates, reduced [...] MTH (s), 1, B/L, Plantar, Heel, B/L Ophthalmology Referral DIABETES EYE EXAM Procedu re Performed:: Yes ?Date of Exam Performed: 01/06/2024 Diabetic Retinopathy Screening:: Yes Retinal Screening Performed:: Yes Findings of Diabetic Eye Exam:: no retin opathy Nails NAILS are: Elongated, overg rown, dystrophic, lytic, greater than 3mm thick, discolored and friable with crumbly malodorous subungual debris , TA, T1, T2, T3, T4, T5, T6, T7, T8, T9
--- OUTSIDE RECORDS SUMMARY | 2024-10-09 08:04 | XMS_ITS | Patient Health Record ---
Author Organization [facility] Address [address] [place] [address] Care Team Providers Care Machine I Coremaker Name Role Phone Renetta Rangel MD Primary Care Provider Edy Fonseca Unavailable [phone] Allergies No Known Allergies Results Component Value Reference Range Notes HEMOGLOBIN A1C (GLYCOHEMOGLO BIN) Reviewed date:11/10/2023 09:34:55 AM Interpretation: Performing Lab: Notes/Report: HEMOGLOBIN A1C % (HH) 6.0 HEMOGLOBIN A1C (GLYCOHEMOGLO BIN) Reviewed date:02/09/2024 09:02:36 AM Interpretation: Performing Lab: Notes/Report: HEMOGLOBIN A1C % (HH) 6.0 HEMOGLOBIN A1C (GLYCOHEMOGLO BIN) Reviewed date:08/10/2024 10:00:02 AM Interpretation: Performing Lab: Notes/Report: HEMOGLOBIN A1C % (HH) 6.8 Reason For Referral No Information Medications Medication SIG (Take, Route, Frequency, Duration) Notes Start Date End Date Status amLODIPine Besylate 10 MG 1 tablet Orally Once a day 02/28/2015 Active glipiZIDE 5 MG 1 tablet Orally Once a day Not-Taking metFORMIN HCl 500 MG 1 tablet with meals Orally Twice a day Active Omeprazole 20 MG 1 capsule Orally Onc e a day 02/28/2015 Active Extra Depth Orthopedic Shoes (1 Pair) with Customized Heat Molded Multidensity Innersoles (3 Pair) as directed Dx: NIDDM/Polyneuropathy (E11.42), Hammertoe Foot Deformity (M20.41,M20.42), Preulcerative Skin Lesion(s) (L85.1 08/11/2023 Active Simvastatin 20 MG (Prior Auth: Rx Ref#:[id number]) Oral for 90 Not-Taking Ammonium Lactate 12 % 1 application to affected area Externally Twice a day to dry areas of skin on feet for 30 days 11/18/2016 Active Tradjenta 5 MG Oral for 30 Not -Taking Atorvastatin Calcium Active Farxiga Active Lisinopril 10 MG (Prior Auth: Rx Ref#:[id number]) Oral for 90 Active Doxycycline Hyclate Not-Taking Gabapentin Not-Takin g Immunizations Vaccine Route Administration Date Status Comme [...] Problem Acquired hammer toe of right foot (9772693252589151 ) Other hammer toe(s) (acquired), right foot (M20.41) Active confirmed Response to treatment, Improvemen t Problem Acquired hammer toe of left foot (7844717722037875 ) Other hammer toe(s) (acquired), left foot (M20.42) Active confirmed Response to treatment, Improvemen t Problem Polyneuropathy due to type 2 diabetes mellitus (456176927) Type 2 diabetes mellitus with diabetic polyneuropathy (E11.42) Active confirmed Vital Signs Blood pressure diastolic 79 mm Hg 08/10/2024 Height 6ft 3in in 08/10/2024 Blood pressure systolic 124 mm Hg 08/10/2024 Weight 220 lbs 08/10/2024 BMI 27.5 kg/m2 08/10/2024 Procedures Procedure Date Ordered Date Performed Result Body Sit e 27315-MOCJCBG NAIL, 6 OR MORE 11/10/2023 N/A 70089 I&D ABSCESS- SIMPLE,SINGLE 11/10/2023 N/A 39540-WCCG SKIN LESIONS, OVER 4 11/10/2023 N/A 14618-DXCIOMP NAIL, 6 OR MORE 02/09/2024 N/A 54656-Rlpzequo Plate 02/09/2024 N/A 79167-KJEE SKIN LESIONS, OVER 4 02/09/2024 N/A 66088-GTNGFVJ NAIL, 6 OR MORE 05/11/2024 N/A 89439-MWJU SKIN LESIONS, OVER 4 05/11/2024 N/A 24334-Egtb. Subungual Hematoma 05/11/2024 N/A 56875-TAICVQF NAIL, 6 OR MORE 08/10/2024 N/A 11288-Glgjhgzn Plate 08/10/2024 N/A 40587-QURQ SKIN LESIONS, OVER 4 08/10/2024 N/A Encounters Encounter Location Date Provider Diagnosis [address] [address] 11/10/2023 Edyruy WhaleySeth Type 2 diabetes mellitus with diabetic polyneuropathy E11.42 ; Tinea unguium B35.1 ; Abscess of toe, left L02.612 and Subungual hematoma of right foot, initial encounter S90.221A [address] [address] 02/09/2024 Edy Seth Type 2 diabetes mellitus with diabetic polyneuropathy E11.42 ; Tinea unguium B35.1 and Ingrown nail L60.[address] [address] 05/11/2024 Edyryu WhaleySeth Type 2 diabetes mellitus with diabetic polyneuropathy E11.42 ; Tinea unguium B35.1 ; Other hammer toe(s) (acquired), right foot M20.41 ; Other hammer toe(s) (acquired), left foot M20.42 and Subungual hematoma of left foot, initial encounter S90.222A [facility] [address] [address] 08/10/2024 Edy Ann Type 2 diabetes mellitus [...] E11.42) 05/11/2024 Tinea unguium (ICD-10 - B35.1) 08/10/2024 Type 2 diabetes mellitus with diabetic polyneuropathy (ICD-10 - E11.42) 08/10/2024 Tinea unguium (ICD-10 - B35.1) 08/10/2024 Ingrown nail (ICD-10 - L60.0) 02/09/2024 Ingrown nail (ICD-10 - L60.0) 05/11/2024 [...] left foot, initial encounter (ICD-10 - S90.222A) 11/10/2023 Other Plan Of Treatment Pending Test Test Name Order Date Hemoglobin A1c 03/06/2015 43528-NDDJTXD NAIL, 6 OR MORE 03/06/2015 71019-DNQMMBK NAIL, 6 OR MORE 06/12/2015 37009-SXQBZZT NAIL, 6 OR MORE 09/04/2015 97273-GCKLFVS NAIL, 6 OR MORE 12/04/2015 38693-IIPAMMG NAIL, 6 OR MORE 02/20/2016 17754-ROHNKNV NAIL, 6 OR MORE 08/19/2016 68040-AHVKNZI NAIL, 6 OR MORE 05/21/2016 78464-PKGIOXW NAIL, 6 OR MORE 11/18/2016 59818-YFMHUGG NAIL, 6 OR MORE 03/01/2017 14848-CQXUTHT NAIL, 6 OR MORE 06/28/2017 30901-UOWISJI NAIL, 6 OR MORE 10/04/2017 95867-OJGVPZI NAIL, 6 OR MORE 01/03/2018 55633-OMAQKGC NAIL, 6 OR MORE 04/04/2018 46183-AKNXAAT NAIL, 6 OR MORE 07/18/2018 37989-GLCCXXR NAIL, 6 OR MORE 11/07/2018 45446-RUPYZOW NAIL, 6 OR MORE 02/22/2019 18291-WHHCNZX NAIL, 6 OR MORE 05/24/2019 50335-ZGWKJIT NAIL, 6 OR MORE 08/03/2019 03429-JAZFOWP NAIL, 6 OR MORE 11/02/2019 49420-LTAPWFU NAIL, 6 OR MORE 02/01/2020 42330-OQLSRRB NAIL, 6 OR MORE 04/22/2020 12290-YKSIDXA NAIL, 6 OR MORE 07/15/2020 92774-FTNHAYD NAIL, 6 OR MORE 10/14/2020 94913-WOIQOLI NAIL, 6 OR MORE 01/13/2021 48871-YZSWEFG NAIL, 6 OR MORE 04/14/2021 19121-GKFKKIF NAIL, 6 OR MORE 08/14/2021 39435-VWLGNDD NAIL, 6 OR MORE 10/29/2021 68565-JQQSBPF NAIL, 6 OR MORE 01/21/2022 73122-EGYKHOP NAIL, 6 OR MORE 04/22/2022 41516-HQWERCR NAIL, 6 OR MORE 07/29/2022 83896-NIFWOCP NAIL, 6 OR MORE 11/04/2022 16038-TETXJUQ NAIL, 6 OR MORE 01/27/2023 00368-TOYXGWH NAIL, 6 OR MORE 05/10/2023 75590-LELHRIC NAIL, 6 OR MORE 08/11/2023 22077-YJDEPVQ NAIL, 6 OR MORE 11/10/2023 78255-COQPSDV NAIL, 6 OR MORE 02/09/2024 90561-VCNXFVY NAIL, 6 OR MORE 05/11/2024 45446-HVDMOKV NAIL, 6 OR MORE 08/10/2024 14329-Vpuxljcc Plate 08/10/2024 80065-Jevhyxis Plate 02/09/2024 13874-Mkcsnkuq Plate 08/11/2023 41951-Wfizohen Plate 07/29/2022 53984-Uxrqrhis Plate 05/10/2023 81157-Evzncwzx Plate 11/04/2022 34414-Dzfpmjoh Plate 01/21/2022 65372-Xipvzxzr Plate 10/29/2021 08640-Hbnrcrgi Plate 08/14/2021 57198-Ibdvyioe Plate 04/14/2021 19059-Apffista Plate 01/13/2021 48885-Leaflioe Plate 10/14/2020 96771-Vpehmaqi Plate 07/15/2020 15833-Qhpkugyo Plate 04/22/2020 34679-Uoqysyct Plate 02/01/2020 66396-Savkzijp Plate 11/02/2019 58407-Zpgpgxsx Plate 08/03/2019 39736-Onmgscoq Plate 05/24/2019 94104-Qhzwnmmx Plate 02/22/2019 67111-Wtucfpal Plate 11/07/2018 12811-Qfuiymww Plate 07/18/2018 86525-Cxbnsnyc Plate 04/04/2018 94588-Ozjccdqg Plate 01/03/2018 70544-Cdajjfus Plate 10/04/2017 75078-Tmwzxqty Plate 06/28/2017 20924-Kugxilva Plate 03/01/2017 61984-Sjomhuar Plate 08/19/2016 27373-Xcxbmmfn Plate 06/12/2015 79999-Nrftffhu Plate Each Additional 11/2015 04092-Vcowampo Plate Each Additional 94272- Debride <25 sq cm 07/18/2018 93697 I&D ABSCESS- SIMPLE,SINGLE 024 64771- I&D ABSCESS-COMPLICATED,MULTI 01261-GBLP SKIN LESIONS, OVER 4 04/04/20 18 13202-XYJP SKIN LESIONS, OVER 4 01/04/20 18 02028-BFLL SKIN LESIONS, OVER 4 03/01/20 17 49745-QOLB SKIN LESIONS, OVER 4 05/21/20 16 98465-DRYQ SKIN LESIONS, OVER 4 06/28/19 18 67016-JVUH SKIN LESIONS, OVER 4 10/05/19 18 38365-ILLD SKIN LESIONS, OVER 4 06/12/19 16 05875-CBVZ SKIN LESIONS, OVER 4 09/04/19 16 69658-ZAAE SKIN LESIONS, OVER 4 03/06/20 15 70900-NICO SKIN LESIONS, OVER 4 08/20/19 17 91746-APBK SKIN LESIONS, OVER 4 11/19/19 17 64983-PJTU SKIN LESIONS, OVER 4 02/20/20 16 02612-VQEO SKIN LESIONS, OVER 4 12/04/19 16 09387-QLJB SKIN LESIONS, OVER 4 07/18/19 19 86184-BAAB SKIN LESIONS, OVER 4 11/08/19 19 42083-LMYO SKIN LESIONS, OVER 4 02/23/20 19 91702-CVMP SKIN LESIONS, OVER 4 05/24/20 19 21872-XAUK SKIN LESIONS, OVER 4 08/03/19 20 73671-IGSK SKIN LESIONS, OVER 4 11/02/19 20 05870-BTAT SKIN LESIONS, OVER 4 02/01/20 20 05955-PVJM SKIN LESIONS, OVER 4 04/22/20 20 63589-AJZV SKIN LESIONS, OVER 4 07/15/19 21 03711-QPTW SKIN LESIONS, OVER 4 10/15/19 21 98450-TMGE SKIN LESIONS, OVER 4 01/14/20 91020-XOOA SKIN LESIONS, OVER 4 04/14/20 43257-NAPW SKIN LESIONS, OVER 4 08/15/19 22 61161-XLNT SKIN LESIONS, OVER 4 10/30/19 49380-PBWP SKIN LESIONS, OVER 4 05/11/20 08008-BGOO SKIN LESIONS, OVER 4 02/09/20 29488-FDXW SKIN LESIONS, OVER 4 11/10/19 03936-XNKN SKIN LESIONS, OVER 4 08/11/19 57632-QLOT SKIN LESIONS, OVER 4 01/22/20 72664-GNYX SKIN LESIONS, OVER 4 04/22/20 94933-SGBE SKIN LESIONS, OVER 4 11/05/19 23 19781-ZEYY SKIN LESIONS, OVER 4 07/29/19 23 00888-JCLI SKIN LESIONS, OVER 4 08/11/19 24 37722-SQFL SKIN LESIONS, OVER 4 05/10/20 23 33898-APWB SKIN LESIONS, OVER 4 01/28/20 23 25423-Dsqu. Subungual Hematoma 4 73427-Oizk. Subungual Hematoma 1 Next Appt Details Provider Name:Edy Ann , 11/09/2024 10:30:00 AM, [address] [facility], [address], [place], [address], Insurance Providers Payer Name Payer Address Payer Phone Subscriber Number Group Number Insured Name Patient Relationship to Insured Coverage Start Date Coverage End Date Medicare National [employer] [address] [place] [address] [id number] Kevin Daly Self - patient is the insured [employer] [place] Medicare Advantage [facility] [address] [place] [address] [id number] Kevin Daly Self - patient is the insured Medical (General) History Medical History History ICD Code Back,Hip,and Knee pain type II diabetes High blood pressure Reflux Measles Mumps Chicken pox Cholesterol Surgical History Surgery Date(Month/Year) tonsillectomy rotator cuff tear repair 11/29/17 [facility] biopsy kidney 05/2019 Hospitalization History Reason Date(Month/Year) [facility], 2 days 09/2022 [facility] biopsy kidney 04/20/22 [facility] pneumonia 09/2020 [facility] Kidney stone 01/14/19 [facility] rotator cuff surgery left arm
--- OUTSIDE RECORDS SUMMARY | 2024-10-09 08:04 | XMS_ITS ---
Author Organization [facility] Address [address] [place] [address] Care Team Providers Care Cream Separator Operator Name Role Phone Renetta Rangel MD Primary Care Provider Edy Fonseca Unavailable [phone] Allergies No Known Allergies REASON FOR VISIT At Risk Footcare, Toe Irritation, Painful Toe/Nail(s) Medications Medication SIG (Take, Route, Frequency, Duration) Notes Start Date End Date Status Ammonium Lactate 12 % 1 application to affected area Externally Twice a day to dry areas of skin on feet for 30 days 11/18/2016 Active Lisinopril 10 MG (Prior Auth: Rx Ref#:[id number]) Oral for 90 Active metFORMIN HCl 500 [...] Active Simvastatin 20 MG (Prior Auth: Rx Ref#:[id number]) Oral for 90 Not-Taking Omeprazole 20 MG [...] Ordered Date Performed Result Body Sit e 94223-JCYYUOS NAIL, 6 OR MORE 05/11/2024 N/A 83715-QHYE SKIN LESIONS, OVER 4 05/11/2024 N/A 03610-Jqup. Subungual Hematoma 05/11/2024 N/A Encounters Encounter Location Date Provider Diagnosis [facility] [address] [address] 05/11/2024 Edy Ann Type 2 diabetes mellitus [...] Treatment Pending Test Test Name Order Date 39001-DBXVVSI NAIL, 6 OR MORE 05/11/2024 58363-KEGO SKIN LESIONS, OVER 4 05/11/20 24 84145-Quhn. Subungual Hematoma 4 Next Appt Details Follow Up: prn, Reason: Provider Name:Edy Ann , 11/09/2024 10:30:00 AM, [address] [facility], [address], [place], [address], Procedure Notes * Category Sub-Category Detail Notes [...] use of a nail nipper and/or dremel-type fusion juncture grinder, to a more viable healthy nail [...] to maintain effectiveness in symptomatic relief - 67928 I&D subungual hematoma: Location T4, As p [...] advised of the possibilty for nail auto-avulsion (25438), DIABETES: Pt was advised as to the [...] tissue nippers, and/or power dremel instrumentation - 02665 Progress Notes * Kevin LINDO MDOB: (78 yo M)Acc No.[id number]:05/11/2024 Progress Note Patient:?Kevin LINDO Provider:?Edy Ann DPM :1945???Age:78 Y???Sex:Male Socrates e:05/11/2024 Address:[address] [place], [place] [address] Pcp:Renetta Rangel MD Subjective: * Chief Complaints: [...] emors?denies.? * Medical History:? * Surgical History:?tonsillect beartis rotator cuff tear repair 11/29/17[facility] biopsy kidney 05/2019 * Hospitalization/Major Diagno stic Procedure:?[facility] rotator cuff surgery left arm 11/29/17[facility] Kidney stone 01/14/19[facility]- pneumonia 09/2020[facility] biopsy kidney 04/20/22[facility]- heart monitor, 2 days 09/2022 * Family [...] Lisinopril 10 MG Tablet (Prior Auth: Rx Ref#:[id number]) Oral metFORMIN HCl 500 MG Tablet 1 [...] Lisinopril 10 MG Tablet (Prior Auth: Rx Ref#:[id number]) Oral Taking metFORMIN HCl 500 MG Tablet 1 tablet with meals Orally Twice a day Taking Omeprazole 20 MG Capsule Delayed Release 1 capsule Orally Once a day Taking Extra Depth Orthopedic Shoes (1 Pair) with Customized Heat Molded Multidensity Innersoles (3 Pair) as directed Dx: NIDDM/Polyneuropathy (E11.42), Hammertoe Foot Deformity (M20.41,M20.42), Preulcerative Skin Lesion(s) (L85.1 Not-Taking/PRNSimvastatin 20 MG Tablet (Prior Auth: Rx Ref#:[id number]) Oral Doxycycline Hyclate Gabapentin glipiZIDE 5 MG Tablet 1 tablet Orally Once a day Tradjenta 5 MG Tablet Oral Medication List reviewed and reconciled with the patientNot-Taking/PRN Simvastatin 20 MG Tablet (Prior Auth: Rx Ref#:[id number]) Oral Not-Taking/PRN Doxycycline Hyclate Not-Taking/PRN Gabapentin Not-Taking/PRN [...] hematoma of lef t foot, initial encounter?Procedure: 63701-Olkc. Subungual Hematoma * Procedures:?Debride Nail 6-10:?Nail debridement?Performance of this nail treatment by a nonprofessional would put this patients foot and overall health at risk. Therefore, debridement to affected nail(s), as described in exam, was performed extensively to reduce/remove overall nail length, girth, thickness, subungual debris, and necrotic tissue, by manual and/or electrical means through the use of a nail nipper and/or dremel-type fusion juncture grinder, to a more viable healthy nail [...] to maintain effectiveness in symptomatic relief - 49656.?I&D subungual hematoma::?Location?T4, As per exam.?Anesthesia?was deferred - [...] advised of the possibilty for nail auto-avulsion (17327), DIABETES: Pt was advised as to the [...] tissue nippers, and/or power dremel instrumentation - 69059.? * Procedure Codes:?91241 DEBRI DE NAIL, 6 OR MORE, Modifiers: XS 27969 DRAIN BLOOD FROM UNDER NAIL, Modifiers: XS , [id number] TRIM SKIN LESIONS, OVER 4, Modifiers: XS [...] DPM Date:?2023 Generated for Tiffani domínguez/Cedrick/Annie on:?10/09/2024 08:04 AM [...] (s), 1, B/L, Plantar, Heel, B/L Orthopedic FOOTWEAR EVALUATION: good condit ion, exhibit proper fit and accommodation for pedal [...]
--- OUTSIDE RECORDS SUMMARY | 2024-10-09 08:04 | XMS_ITS | Encounter Summary ---
Author Organization [facility] Address [address] [place] [address] Care Team Providers Care Transportation Economics Teacher Name Role Phone Renetta Rangel MD Primary Care Provider Reason for Visit * Reason Comments Advice Only Encounter Details Date Type Department Care Team (Late Contact Info) Description 12/18/2019 Telephone [facility] Urologic Surgery [place] [address] [address] Jeff Jerez MD [address] [phone] Advice Only Social History Tobacco Use Types [...] Description 05/25/2025 10:15 AM EST Office Visit [facility] [place] [address] [place] [address] Jeff Jerez MD [address] [place] [address] documented as of this encounter Visit Diagnoses Not on filedocumented in this encounter Care Teams Transportation Economics Teacher Relationship Specialty Start Date End Date Renetta Rangel MD [address] [place] [address] PCP - General 03/08/19 documented as of this encounter
--- OUTSIDE RECORDS SUMMARY | 2024-10-09 08:04 | XMS_ITS | Encounter Summary ---
Author Organization [facility] Address [address] [place] [address] Care Team Providers Care Accredited Pharmacy Technician Name Role Phone Renetta Rangel MD Primary Care Provider [phone] Encounter Details Date Type Department Care Team (Late Contact Info) Description 03/09/2019 Scanned Document [facility] Urologic Surgery [place] [address] [place] [address] Provider, MD Sun [address] [place] [address] Social History Tobacco Use Types Packs/Day Years [...] Visit [facility]rology [place] [address] [place] [address] Jeff Jerez MD [address] [address] documented as of this encounter Visit Diagnoses Not on filedocumented in this encounter Care Teams Accredited Pharmacy Technician Relationship Specialty Start Date End Date Renetta Rangel MD [address] [place] [address] PCP - General 03/08/19 documented as of this encounter
--- OUTSIDE RECORDS SUMMARY | 2024-10-09 08:04 | XMS_ITS | Encounter Summary ---
Author Organization [facility] Address [address] [place] [address] Care Team Providers Care Awning Installer Name Role Phone Renetta Rangel MD Primary Care Provider [phone] Encounter Details Date Type Department Care Team (Late Contact Info) Description 03/09/2019 Scanned Document [facility] Urologic Surgery [place] [address] [place] [address] Provider, MD Sun [address] [place] [address] Social History Tobacco Use Types Packs/Day Years [...] Description 05/25/2025 10:15 AM EST Office Visit [facility] [place] [address] [place] [address] Jeff Jerez MD [address] [address] documented as of this encounter Visit Diagnoses Not on filedocumented in this encounter Care Teams Awning Installer Relationship Specialty Start Date End Date Renetta Rangel MD [address] [place] [address] PCP - General 03/08/19 documented as of this encounter
[2024-10-09 08:10] VITALS: BP 112/72; PULSE 74; TEMP 36.6; O2SAT 97
--- NOTE | 2024-10-09 08:10 | AM.OFFWIN_ITS ---
Intake Vital Signs 10/09/24 08:10 Weight 216 lb BP 112/72 Blood Pressure Location Lt brachial Position Sitting Pulse 74 Pulse Source Pulse Oximeter Temp 97.8 F Temp Source Oral Pulse Oximetry (%) 97 Oxygen Delivery Method Room Air Intake Visit Reasons: EP ? pnumonia Intake Note: Patient here for congestion, chest congestion that has been present for about 3 days. Patient Tobacco Use Status: Never used Tobacco Allergies No Known Allergies [No Known Allergies*] Allergy (Verified 10/09/24 08:16) Do you need a note to return to daycare/school/sports/work: No HPI HPI Comments History of Present Illness Details The patient is a 79-year-old male presenting for sick visit. The symptoms began with the onset of chest congestion approximately three to four days ago following similar respiratory illnesses in his immediate family. The patient first contracted COVID-19 on September 27, getting a negative test result on October 04. Despite feeling initially better post-COVID, his symptoms progressed into significant chest and sinus congestion, including a productive cough with greenish mucus. While the patient denies experiencing chest pain or shortness of breath, the nocturnal exacerbation of symptoms, including crackling sounds upon breathing, is concerning. Additionally, the patient reported some ear discomfort correlated with sinus pressure but no ear pain per se. The patient?s goal is to resolve these symptoms before an impending trip abroad. - Onset: 3 to 4 days ago. - Quality: Chest congestion with crackli ng noise when breathing. - Location: Chest and sinus areas. - Exacerbating Factors: Symptoms worsen at night. - Associated Symptoms: Greenish mucus pr oduction; NO accompanying chest pain or shortness of breath. - Relief Measures: NONE specified, ongoi ng concern for progressing symptoms. - Affect: Increased concern about worsen ing symptoms; desire to travel-related tension. - Analgesia: No specific pain medication regime discussed. - Adverse Effects: NONE from medications , discussion limited to symptoms. - Activities of Daily Living: Anxiety ab out trip plans and worsening health. - Aberrant Drug Related Behaviors: NONE reported or discussed. COUNTS INCLUDE 234 BEDS AT THE [facility] Medical History Annual physical exam Pneumonia Lumbar disc disease Renal mass CKD (chronic kidney disease) stage 3, GFR 30-59 ml/min Overweight Hyperlipidemia HTN (hypertension) Type 2 diabetes mellitus Surgical History H/O colonoscopy Family History Father MVA (motor vehicle accident) Mother Heart failure Social History Housing: House Alcohol intake: current Alcohol intake frequency: a few times a week Patient Tobacco Use Status: Never used Tobacco e-Cigarette/Vaping Use: Never Used service: Yes Current occupational status: retired Cognitive needs: No Hearing needs: Yes Vision needs: Yes Review of Systems Const Details: - Respiratory: Reports persistent cough producing mucus. - Musculoskeletal: Denies specific pain or issues. - Respiratory System: Reports chest congestion and a productive cough. - HEENT: Reports sinus congestion and ear popping sounds. - General: Denies chest pain or shortness of breath. Physical Exam Vital Signs: Last Vital Signs Temp 97.8 F 10/09/24 08:10 Pulse 74 10/09/24 08:10 BP 112/72 10/09/24 08:10 Pulse Ox 97 10/09/24 08:10 Oxygen Delivery Method Room Air 10/09/24 08:10 General: awake, alert, oriented. Answers questions appropriately. Fully engaged in examination. Skin: warm, dry, intact HEENT: TMs intact bilaterally, no redness. Posterior pharynx without erythema or exudate. Sclera without icterus or injection. Cardiac: External chest normal in appearance. Respiratory: +cough. Diffuse rales, improved with cough. Abdomen: without gross distension. Neurological: Oriented to person, place, time and situation. Thought process intact. Psychiatric: Appropriate mood and affect. Good judgment and insight. Results Reviewed Results Reviewed: - Imaging: Chest X-ray was negative for pneumonia. Assessment & Plan Assessment & Plan (1) Cough: Code(s): R05.9 - Cough, unspecified (2) URI (upper respiratory infection): Code(s): J06.9 - Acute upper respiratory infection, unspecified Plan I prescribed a Z-Pratik azithromycin) to manage the patient's persistent cough and mucus production, potentially linked to early bacterial infection [id number], with the goal of addressing any residual inflammatory or infective symptoms. Antihistamines such as Claritin or Roseanna were recommended to manage potential environmental allergies exacerbated by recent grass exposure and local rain. Pharmacy information for the prescription is [email or web address] [address] [facility]. During our discussion, I informed the patient about the negative chest X-ray results, explaining the absence of pneumonia. We reviewed the decision to prescribe azithromycin (Z-Pratik) as a preemptive measure against any bacterial infection that might not yet be visible. I highlighted the medication's dual benefits of resolving potential early-stage infection and reducing inflammation. Given his exposure to grass and recent rainfall, I recommended poeh-wgq-zkyeofb antihistamines to relieve any allergic symptoms, explaining how sinus-related congestion could contribute to mucus accumulation in the chest. We discussed the course duration of azithromycin and its prolonged activity, ensuring coverage leading into his upcoming travel. Consent for treatment was obtained, and we clarified his pharmacy preference as [email or web address] [address] [facility] for medication pick- up. Patient was informed and verbally consented to the use of an ambient scribe for clinic note documentation during this visit. Orders: Orders XR chest 2V Today R05.9 - Cough, unspecified Medications: New azithromycin For 250 mg dose pack: take 500 mg today (day 1), then 250 mg for 4 days (days 2-5) PO 6 tabs 0RF Patient Instructions: - Take the prescribed Z-Pratik (azithromycin) as directed for five days. - Purchase and take an kvtk-vcz-ukwgevk antihistamine, such as Claritin or Roseanna, for allergy symptoms. - Monitor your symptoms and report any worsening or new symptoms immediately. - Rest as needed and maintain hydration. - greens or grounds superintendent medication from [facility] on [facility], as discussed. - Use hrxs-uhl-gzjesju medication for congestion per labeling instructions. - Monitor symptoms, especially green mucus and nocturnal crackling sounds. - Seek further medical attention if symptoms worsen or do not improve. - Ensure a follow-up discussion prior to travel should symptoms persist. Coding Level of Care Code Est Pt Level 3 (88472) Diagnoses Cough R05.9 URI (upper respiratory infection) J06.9
== END 2024-10-09 09:31 | disposition home or self-care (01) ==
PROVIDERS: PCP Internal Medicine; Visit Provider Registered Nurse Emergency
DX: R05.9 Cough, unspecified (principal); J06.9 Acute upper respiratory infection, unspecified
CPT/HCPCS: 99213

== ENCOUNTER → 2024-10-09 08:45 | Outpatient (BNV) | payer MEDICARE, OTHER, SELFPAY | PROVIDERS: PCP Internal Medicine; Visit Provider Radiology Diagnostic Radiology | DX: R05.9 Cough, unspecified (principal) | CPT/HCPCS: 71046 ==

== ENCOUNTER 2025-03-23 09:13 | Outpatient (REF) | payer MEDICARE, OTHER, SELFPAY ==
[2025-03-23 12:25] LABS: Alanine Aminotransferase 24 U/L (0-40); Albumin Level 4.4 g/dL (3.5-5.0); Alkaline Phosphatase 77 U/L (39-117); Anion Gap 13 (12-20); Aspartate Amino Transferase 20 U/L (5-37); Blood Urea Nitrogen 27 mg/dL (9-16); Calcium 9.4 mg/dL (8.4-10.2); Carbon Dioxide 27 mmol/L (22-29); Chloride 102 mmol/L (96-108); Cholesterol 159 mg/dL (<200); Estimated Glomerular Filt Rate 46; HDL Cholesterol 46 mg/dL (>40); Potassium 4.0 mmol/L (3.3-5.1); Sodium 138 mmol/L (135-145); Total Protein 7.3 g/dL (6.5-8.0); Triglycerides 93 mg/dL (<150)
[2025-03-23 14:13] LABS: Folate 5.0 ng/mL (> or = 4.0); Vitamin B12 339 pg/mL (200-900)
[2025-03-23 14:34] LABS: Microalbum/Creatinine Ratio Ur 34.4 ug/mg cr (<30)
== END 2025-03-23 09:14 | disposition home or self-care (01) ==
LOC: HO.HMGCLDS 09:13
PROVIDERS: PCP Internal Medicine; Visit Provider Internal Medicine
DX: E11.22 Type 2 diabetes mellitus with diabetic chronic kidney disease (principal); N18.30 Chronic kidney disease, stage 3 unspecified; E78.5 Hyperlipidemia, unspecified; E11.40 Type 2 diabetes mellitus with diabetic neuropathy, unspecified
CPT/HCPCS: 36415; 80053; 80061; 82043; 82570; 82607; 82746; 83036

== ENCOUNTER 2025-03-30 10:06 | Outpatient (AMB) | payer MEDICARE, OTHER, SELFPAY ==
--- NOTE | 2025-03-30 10:11 | A.OFFPC_ITS ---
Vital Signs 03/30/25 10:14 Height 6 ft 3 in Weight 220 lb BMI 27.5 BP 118/66 Blood Pressure Location Rt brachial Position Sitting Respiration 16 Pulse 81 Pulse Source Pulse Oximeter Temp 98.2 F Temp Source Oral Pulse Oximetry (%) 99 Oxygen Delivery Method Room Air Intake Visit Reasons: PE Intake Note: Pt is here today for PE. Allergies No Known Allergies (No Known Allergies*) Allergy (Verified 03/30/25 10:14) Medication List - Last Reconciled 03/30/25 by Renetta Rangel MD amlodipine 10 mg PO DAILY atorvastatin 20 mg PO DAILY blood sugar diagnostic (Accu-Chek Maris Plus test strips) use one strip once a day to test blood sugar dapagliflozin propanediol (Farxiga) 10 mg PO DAILY flu vac 2020 [id number](PF) 60 mcg (15 mcg x 4)/0.5 mL mL IM lancets (Accu-Chek Fastclix Lancet Drum) use to test blood sugar once a day lisinopril 10 mg PO DAILY metformin 500 mg PO BID miscellaneous medical supply diabetic shoes as directed QD; omeprazole 20 mg PO DAILY pneumoc 13-yogesh conj-dip cr(PF) mL IM Tobacco use date assessed: 03/30/25 Fall risk assessment: 2 + Falls in past year Last assessed Fall Risk: 03/30/25 Dental Screening Dental Screen Date: 07/11/24 HPI PE HPI Details Pt presents for PE. Patient reports worsening of glycemic control for the last few months. He reports fasting blood glucose up to 200. His 44-year-old son moved in and has been bringing home a lot of processed fast foods lately. [facility] Medical History Annual physical exam Pneumonia Lumbar disc disease Renal mass CKD (chronic kidney disease) stage 3, GFR 30-59 ml/min Overweight Hyperlipidemia HTN (hypertension) Type 2 diabetes mellitus Surgical History H/O colonoscopy Family History Father MVA (motor vehicle accident) Mother Heart failure Social History Housing: House Alcohol intake: current Alcohol intake frequency: a few times a week Patient Tobacco Use Status: Never used Tobacco e-Cigarette/Vaping Use: Never Used service: Yes Current occupational status: retired Cognitive needs: No Hearing needs: Yes Vision needs: Yes Questionnaire PHQ-9 Over the last 2 weeks, how often have you been bothered by any of the following problems? 1. Little interest or pleasure in doing things: not at all 2. Feeling down, depressed, or hopeless: not at all 3. Trouble falling or staying asleep, or sleeping too much: several days 4. Feeling tired or having little energy: not at all 5. Poor appetite or overeating: not at all 6. Feeling bad about yourself - or that you are a failure or have let yourself or your family down: not at all 7. Trouble concentrating on things, such as reading the newspaper or watching television: not at all 8. Moving or speaking so slowly that other people could have noticed. Or the opposite - being so fidgety or restless that you have been moving around a lot more than usual: not at all 9. Thoughts that you would be better off or of hurting yourself in some way: not at all Total score: 1 Depression Screening Interpretation: Negative Depression Screening Done: Yes Source: Developed by Drs. Nain Goss, Ramya Rudolph, Edgard Langston and colleagues, with an educational cornell from [employer]. Thrive Questionnaire Date Thrive assessed: 07/04/24 I am a: Patient What is your living situation today?: I have a steady place to live Within the past 12 months, did the food you bought not last and you didn't have the money to get more?: Never true Within the past 12 months, did you worry whether your food would run out before you got money to buy more?: Never true Do you have trouble paying for medicines?: No Do you have trouble getting transportation to medical appointments?: No Do you have trouble paying your heating and electricity bill?: No Do you have trouble taking care of your child, family member or friend?: No Do you have trouble with day-to-day activities such as bathing, preparing meals, shopping, managing finances, etc.?: No Are you currently unemployed and looking for a job?: No Are you interested in more education?: No Please select the resources that you would like help with: None Currently or been in a relationship where the following occur: No concerns reported THRIVE Score: 0 ARAM-7 AMB Questionnaire ARAM-7 Date ARAM - 7 assessed: 07/11/24 Feeling nervous, anxious, or on edge: 0 = Not at all Not being able to stop or control worryin = Not at all Worrying too much about different things: 0 = Not at all Trouble relaxin = Not at all Being so restless that it is hard to sit still: 0 = Not at all Becoming easily annoyed or irritable: 0 = Not at all Feeling afraid as if something awful might happen: 0 = Not at all Total ARAM-7 score (0-4 normal; 5-9 mild; 10-14 moderate; 15-21 severe): 0 Source: Developed by Drs. Nain Goss, Ramya Rudolph, Edgard Langston and colleagues, with an educational cornell from [employer]. Review of Systems Const All systems reviewed & are unremarkable except as noted in HPI and below Eyes Reports no additional complaints ENT Reports no additional complaints Card Reports no additional complaints Resp Reports no additional complaints GI Reports no additional complaints Reports no additional complaints Physical exam (Primary Care) Vital Signs: Last Vital Signs Temp 98.2 F 03/30/25 10:14 Pulse 81 03/30/25 10:14 Resp 16 03/30/25 10:14 BP 118/66 03/30/25 10:14 Pulse Ox 99 03/30/25 10:14 Oxygen Delivery Method Room Air 03/30/25 10:14 BMI result Body Mass Index 27.5 Tobacco/Smoking Status: Tobacco use Status Tobacco use date assessed 03/30/25 03/30/25 10:16 Patient Tobacco Use Status Never used Tobacco 03/30/25 10:11 e-Cigarette/Vaping Use Never Used 03/30/25 10:11 PHQ-9: PHQ-9 Score PHQ-9: Total score 1 03/30/25 10:54 Depression Screening Interpretation: Negative Thrive Assessment: Date of Thrive Assessment Date Thrive assessed 07/04/24 03/30/25 10:11 Currently or been in a relationship where the following occur: No concerns reported Const General: no acute distress HENMT Head: Yes normal to inspection Face and sinus: Yes normal facial exam Throat: Yes posterior oropharynx normal Eyes General: appearance normal, both eyes and all related structures Neck Neck: Yes no lymphadenopathy and Yes supple Resp Effort & Inspection: normal respiratory effort Auscultation: clear to auscultation bilaterally Cardio Rhythm: regular rhythm Heart sounds: S1 normal heart sound present and S2 normal heart sound present GI Inspection: Yes normal to inspection Palpation (GI): Soft to palpation Percussion: Yes normal to percussion Auscultation: normal bowel sounds Extrem Other: Diabetic foot exam skin is intact there is a absent sensation to monofilament in both feet General: Yes no clubbing, cyanosis or edema Coding Level of Care Code Est Pt Prev Care >65y(71859) Diagnoses HTN (hypertension) I10 Diabetes mellitus E11.9 Hyperlipidemia E78.5 CKD (chronic kidney disease) stage 3, GFR 30-59 ml/min N18.30 Chronic kidney disease stage 3 subtype: unspecified whether 3a or 3b Annual physical exam Z00.00 Diabetic neuropathy E11.40 Assessment & Plan Assessment & Plan (1) HTN (hypertension): Comment: BP < 130/80 Code(s): I10 - Essential (primary) hypertension Category: Medical Plan: cont meds (2) Diabetes mellitus: Code(s): E11.9 - Type 2 diabetes mellitus without complications Category: Medical Plan: A1C 8.1, ADA diet, increase exercise (pt has not been going to the gym or walking regularly) increase Metformin to 500 mg bid, cont Faxiga, patient was advised to start check fasting glucose daily and record the readings he will follow-up in 1 month. Prescription for diabetic shoes cause of patient's diabetic neuropathy sent to the pharmacy (3) Hyperlipidemia: Code(s): E78.5 - Hyperlipidemia, unspecified Category: Medical Plan: cont statin (4) CKD (chronic kidney disease) stage 3, GFR 30-59 ml/min: Comment: Follow-up with nephrology Code(s): N18.30 - Chronic kidney disease, stage 3 unspecified Category: Medical Qualifiers: Chronic kidney disease stage 3 subtype: unspecified whether 3a or 3b Qualified Code(s): N18.30 - Chronic kidney disease, stage 3 unspecified Plan: avoid nephrotoxins and monitor renal function (5) Annual physical exam: Code(s): Z00.00 - Encounter for general adult medical examination without abnormal findings Category: Medical Plan: Well-balanced diet regular exercise weight loss discussed with the patient (6) Diabetic neuropathy: Code(s): E11.40 - Type 2 diabetes mellitus with diabetic neuropathy, unspecified Category: Medical Plan: It is medically necessary for the patient to have diabetic shoes to prevent diabetic ulcers Medications: New miscellaneous medical supply diabetic shoes as directed QD; 2 ea 0RF E11.40 - Type 2 diabetes mellitus with diabetic neuropathy, unspecified, E11.9 - Type 2 diabetes mellitus without complications miscellaneous medical supply diabetic shoes as directed QD; 2 ea 0RF E11.40 - Type 2 diabetes mellitus with diabetic neuropathy, unspecified, E11.9 - Type 2 diabetes mellitus without complications Changed From metformin 500 mg PO DAILY 90 tabs 3RF To metformin 500 mg PO BID 180 tabs 3RF
[2025-03-30 10:14] VITALS: BP 118/66; PULSE 81; RESP 16; TEMP 36.8; O2SAT 99; BMI 27.5
--- OUTSIDE RECORDS SUMMARY | 2025-03-30 11:27 | XMS_ITS | Encounter Summary ---
Author Organization [facility] Address [address] [place] [address] Care Team Providers Care Paint Prepper Name Role Phone Renetta Rangel MD Primary Care Provider [phone] Reason for Visit * Reason Comments Other Encounter Details Date Type Department Care Team ([facility] Contact Info) Description 07/17/2020 Telephone [facility] Urologic Surgery [place] [address] [phone] Jeff Jerez MD 85 [facility] [place] [address] [place] [address] Other Social History Tobacco Use Types Packs/Day [...] Upcoming Encounters Date Type Department Care Team ([facility] Contact Info) Description 05/25/2025 10:15 AM EST Office Visit [facility] [place] [address] [place] [phone] Jeff Jerez MD [address] [place] [address] documented as of this encounter Visit Diagnoses Not on filedocumented in this encounter Care Teams Paint Prepper Relationship Specialty Start Date End Date Renetta Rangel MD [address] [place] [address] PCP - General 03/08/19 documented as of this encounter
--- OUTSIDE RECORDS SUMMARY | 2025-03-30 11:27 | XMS_ITS | Clinical Summary ---
Author Organization [facility] Address [address] [place] [address] Care Team Providers Care Chemistry Department Chair Name Role Phone Renetta Rangel MD Primary Care Provider Allergies No known active allergies Medications metFORMIN [...] 62 04/20/2022 2:00 PM EST Temperature 36.6 C (97.9 F) 04/20/2022 12:27 PM EST Respiratory Rate 18 04/20/2022 2:00 PM EST [...] Description 05/25/2025 10:15 AM EST Office Visit [facility] Urology [address] [phone] Jeff Jerez MD [address] [place] [address] Health Maintenance Due Date Last Done Comments Advance Care Planning 1945 Hepatitis C Virus Screening 1945 DTaP/Tdap/Td Vaccines (1 - Tdap) 10/04/1966 Pneumococcal Vaccines 50+ (1 of 1 - PCV) 10/04/1997 Zoster (Shingles) Vaccine (1 of 2) 10/04/1997 RSV Vaccine 50 years and old er and Patients (1 - 1-dose 75+ series) 10/04/2022 Influenza Vaccine 01/05/2025 COVID-19 Vaccine (2023-2 5 season) 2025 Hepatitis B Vaccines Aged Out No long er eligible based on patient's age to complete this topic Insurance MEDICARE PART A & B [facility] Care Teams Chemistry Department Chair Relationship Specialty Start Date End Date Renetta Rangel MD [address] [place] [address] PCP - General 03/08/19
--- OUTSIDE RECORDS SUMMARY | 2025-03-30 11:27 | XMS_ITS | Encounter Summary ---
Author Organization [facility] Address [address] [place] [address] Care Team Providers Care Treasury Accountant Name Role Phone Renetta Rangel MD Primary Care Provider Encounter Details Date Type Department Care Team (Late st Contact Info) Description 03/09/2019 Scanned Document [facility] Urologic Surgery [place] [address] [place] [phone] Provider, MD Sun [address] [place] [address] Social History Tobacco Use Types Packs/Day Years [...] Visit [facility] [place] [address] [place] [phone] Jeff Jerez MD [address] [address] documented as of this encounter Visit Diagnoses Not on filedocumented in this encounter Care Teams Treasury Accountant Relationship Specialty Start Date End Date Renetta Rangel MD [address] [place] [address] PCP - General 03/08/19 documented as of this encounter
--- OUTSIDE RECORDS SUMMARY | 2025-03-30 11:27 | XMS_ITS | Encounter Summary ---
Author Organization [facility] Address [address] [place] [address] Care Team Providers Care Ethnoarchaeology Professor Name Role Phone Renetta Rangel MD Primary Care Provider [phone] Encounter Details Date Type Department Care Team (Late st Contact Info) Description 03/09/2019 Scanned Document [facility] Urologic Surgery [place] [address] [place] [phone] Provider, MD Sun [address] [place] [phone] Social History Tobacco Use Types Packs/Day Years [...] 10:15 AM EST Office Visit [facility] Urology [place] [address] [place] [phone] Jeff Jerez MD [address] [address] documented as of this encounter Visit Diagnoses Not on filedocumented in this encounter Care Teams Ethnoarchaeology Professor Relationship Specialty Start Date End Date Renetta Rangel MD [address] [place] [address] PCP - General 03/08/19 documented as of this encounter
--- OUTSIDE RECORDS SUMMARY | 2025-03-30 11:27 | XMS_ITS | Encounter Summary ---
Author Organization [facility] Address [address] [place] [address] Care Team Providers Care Mailing Clerk Name Role Phone Renetta Rangel MD Primary Care Provider [phone] Reason for Visit * Reason Comments Advice Only Encounter Details Date Type Department Care Team (Late Contact Info) Description 12/18/2019 Telephone [facility] Urologic Surgery [place] [address] [phone] Jeff Jerez MD [address] [address] Advice Only Social History Tobacco Use Types [...] Description 05/25/2025 10:15 AM EST Office Visit [facility] Urology [place] [address] [place] [address] Jeff Jerez MD [address] [address] documented as of this encounter Visit Diagnoses Not on filedocumented in this encounter Care Teams Mailing Clerk Relationship Specialty Start Date End Date Renetta Rangel MD [address] [place] [address] PCP - General 03/08/19 documented as of this encounter
--- OUTSIDE RECORDS SUMMARY | 2025-03-30 11:27 | XMS_ITS | Encounter Summary ---
Author Organization [facility] Address [address] [place] [address] Care Team Providers Care Talent Engineer Name Role Phone Renetta Rangel MD Primary Care Provider [phone] Encounter Details Date Type Department Care Team (Late st Contact Info) Description 03/09/2019 Scanned Document [facility] Urologic Surgery [place] [address] [place] [phone] Provider, MD Sun [address] [place] [address] Social History Tobacco Use Types Packs/Day Years [...] Description 05/25/2025 10:15 AM EST Office Visit [facility] Urology [place] [address] [place] [phone] Jeff Jerez MD [address] [phone] documented as of this encounter Visit Diagnoses Not on filedocumented in this encounter Care Teams Talent Engineer Relationship Specialty Start Date End Date Renetta Rangel MD [address] [place] [address] PCP - General 03/08/19 documented as of this encounter
--- OUTSIDE RECORDS SUMMARY | 2025-03-30 11:27 | XMS_ITS ---
Author Name [facility] Organization Unknown History of Medication Use Medication Directions Dispensed Refills Start Date End Date Stat dapagliflozin 10 MG tablet Take by mouth. 02/13/2023 active atorvastatin (LIPITOR) 20 MG tablet Take 1 tablet (20 mg total) by mouth daily. 09/18/2022 active dapagliflozin 5 mg tablet Take 1 tablet (5 mg total) by mouth. 06/17/2022 active gabapentin (NEURONTIN) 100 MG capsule 1 capsule (100 mg total) 3 (three) times a day. 12/30/2020 active amLODIPine (NORVASC) 10 MG tablet Take 1 tablet (10 mg total) by mouth daily. active aspirin enteric coated (ECOTRIN LOW STRENGTH) 81 MG EC tablet Take 1 tablet (81 mg total) by mouth daily. active glipiZIDE (GLUCOTROL XL) 2.5 MG 24 hr tablet Take 1 tablet (2.5 mg total) by mouth every morning with breakfast. active lisinopril (PRINIVIL,ZeSTRIL) 10 MG tablet Take 1 tablet (10 mg total) by mouth daily. active metFORMIN (GLUCOPHAGE) 500 MG tablet Take 1 tablet (500 mg total) by mouth once. active OMEprazole (PriLOSEC) 20 MG capsule Take 1 capsule (20 mg total) by mouth every morning before breakfast. active simvastatin (ZOCOR) 20 MG tablet Take 1 tablet (20 mg total) by mouth nightly. 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 ProblemAct [facility] CKD (chronic kidney disease), stage III active 2019-04-21 ProblemAct [facility] Encounters Encounter Type Encounter Reason Primary Diagnosis Location Date Ambulatory Benign neoplasm of right kidney Benign neoplasm of right kidney [facility] 05/18/2024 Ambulatory Benign neoplasm of right kidney Benign neoplasm of right kidney [facility] 05/07/2023 Ambulatory Benign neoplasm of right kidney [facility] 10/09/2022 Ambulatory Benign neoplasm of right kidney [facility] 04/20/2022 Ambulatory Benign neoplasm of right kidney [facility] 01/02/2022 Care Team Organization Name Specialty Phone Email Start Date End Da te [facility] RENETTA RANGEL Primary Care 04/20/2022 08/24/19 25 [facility] Renetta Rangel Primary Care 01/02/2022 04/20/20
--- OUTSIDE RECORDS SUMMARY | 2025-03-30 11:28 | XMS_ITS | Patient Health Record ---
[facility] Address [address] [place] [address] Care Team Providers Care Veneer Clipper Helper Name Role Phone Renetta Rangel MD Primary Care Provider Edy Fonseca Unavailable [phone] Allergies Allergen (clinical drug ingredient) Drug/Non Drug Allergy documented on EMR Reaction Allergy Type Onset Date Status Pollen (e.g. tree, grass) Unknown Allergy Active Results Component Value Reference Range Notes HEMOGLOBIN A1C (GLYCOHEMOGLO BIN) Reviewed date:08/10/2024 10:00:02 AM Interpretation: Performing Lab: Notes/Report: HEMOGLOBIN A1C % (HH) 6.8 HEMOGLOBIN A1C (GLYCOHEMOGLO BIN) Reviewed date:11/09/2024 10:24:54 AM Interpretation: Performing Lab: Notes/Report: HEMOGLOBIN A1C % (HH) 6.7 Reason For Referral No Information Medications Medication SIG (Take, Route, Frequency, Duration) Notes Start Date End Date Status Omeprazole 20 MG 1 capsule Orally Onc e a day 02/28/2015 Active Lisinopril 10 MG (Prior Auth: Rx Ref#:[id number]) Oral; Duration: 90 Active metFORMIN HCl 500 MG 1 tablet with meals Orally Twice a day Active Doxycycline Hyclate Not-Taking Allergy Relief Activ e Gabapentin Not-Takin g Simvastatin 20 MG (Prior Auth: Rx Ref#:[id number]) Oral; Duration: 90 Not-Taking Atorvastatin Calcium Active Farxiga Active Extra Depth Orthopedic Shoes (1 Pair) with Customized Heat Molded Multidensity Innersoles (3 Pair) as directed Dx: NIDDM/Polyneuropathy (E11.42), Hammertoe Foot Deformity (M20.41,M20.42), Preulcerative Skin Lesion(s) (L85.1 Active amLODIPine Besylate 10 MG 1 tablet Orally Once a day 02/28/2015 Active glipiZIDE 5 MG 1 tablet Orally Once a day Not-Taking Ammonium Lactate 12 % 1 application to affected area Externally Twice a day to dry areas of skin on feet; Duration: 30 days 11/18/2016 Active Tradjenta 5 MG Oral; Duration: 30 Not-Taking Immunizations Vaccine Route Administration Date Status Comme nts Influenza Unknown 04/17/2015 Administered Influenza Unknown 06/17/2016 Administered Influenza Unknown 05/17/2017 Administered Influenza Unknown 02/23/2018 Administered Influenza Unknown 02/23/2019 Administered Influenza Unknown 02/07/2024 Administered Influenza Unknown 02/07/2025 Administered Pneumococcal Unknown 04/12/2013 Administered COVID-19 Moderna Vaccine Unknown 08/09/2020 Administere d COVID-19 Moderna Vaccine Unknown 09/06/2020 Administere d Social History Tobacco Use: Social History Observation Description Date Details (start date - stop date) Never Smoker NA - NA Alcohol Screen Question Answer Notes Did you have a drink containing alcohol in the p ast year? Yes Points 0 Interpretation Negative Tobacco use other than smoking: Question Answer Notes Are you an other tobacco user? No Tobacco Control (Standard) Question Answer Notes Tobacco use: Nonsmoker Additional Findings: Tobacco non-user Current no nsmoker AUDIT-C (Standard) Question Answer Notes Did you have a drink containing alcohol in the p ast year? No Points 0 Interpretation Negative Section Notes: A1C - Unknown Flu Shot 04/2015 Eye Exam 05/2015 A1C - Unknown Flu Shot 04/2015 Eye Exam 05/2015 Problems Problem Type SNOMED Code ICD Code Onset Dates Problem Status W/U Status Risk Notes Problem Acquired hammer toe of right foot (9613926512118000 ) Other hammer toe(s) (acquired), right foot (M20.41) Active confirmed Response to treatment, Improvemen t Problem Acquired hammer toe of left foot (8175432161696453 ) Other hammer toe(s) (acquired), left foot (M20.42) Active confirmed Response to treatment, Improvemen t Problem Polyneuropathy due to type 2 diabetes mellitus (357852801) Type 2 diabetes mellitus with diabetic polyneuropathy (E11.42) Active confirmed Vital Signs Blood pressure diastolic 65 mm Hg 02/08/2025 Height 6ft 3in in 02/08/2025 Blood pressure systolic 130 mm Hg 02/08/2025 Weight 220 lbs 02/08/2025 BMI 27.5 kg/m2 02/08/2025 Procedures Procedure Date Ordered Date Performed Result Body Sit e 97307-EVIJWQS NAIL, 6 OR MORE 05/11/2024 N/A 82465-PWKT SKIN LESIONS, OVER 4 05/11/2024 N/A 34613-Quwa. Subungual Hematoma 05/11/2024 N/A 73019-ZKUUKEB NAIL, 6 OR MORE 08/10/2024 N/A 90615-Xvtkzfjz Plate 08/10/2024 N/A 83866-WTNR SKIN LESIONS, OVER 4 08/10/2024 N/A 19811-MPZGISU NAIL, 6 OR MORE 11/09/2024 N/A 91459-VYUY SKIN LESIONS, OVER 4 11/09/2024 N/A 05431-ZIRVTUX NAIL, 6 OR MORE 02/08/2025 N/A 86218-Vbfwhcvs Plate 02/08/2025 N/A 41645-DVRZ SKIN LESIONS, OVER 4 02/08/2025 N/A Encounters Encounter Location Date Provider Diagnosis [address] [address] 05/11/2024 Edy Whaleyunier Type 2 diabetes mellitus with diabetic polyneuropathy E11.42 ; Tinea unguium B35.1 ; Other hammer toe(s) (acquired), right foot M20.41 ; Other hammer toe(s) (acquired), left foot M20.42 and Subungual hematoma of left foot, initial encounter S90.222A [address] [address] 08/10/2024 Edyruy WhaleySeth Type 2 diabetes mellitus with diabetic polyneuropathy E11.42 ; Tinea unguium B35.1 and Ingrown nail L60.[address] [address] 11/09/2024 Edyruy WhaleySeth Type 2 diabetes mellitus with diabetic polyneuropathy E11.42 ; Tinea unguium B35.1 and Subungual hematoma of right foot, initial encounter S90.221A [facility] [address] [facility] [address] [place] [address] 02/08/2025 Edy Ann Type 2 diabetes mellitus with diabetic polyneuropathy E11.42 ; Tinea unguium B35.1 ; Other hammer toe(s) (acquired), right foot M20.41 ; Other hammer toe(s) (acquired), left foot M20.42 and Ingrown nail L60.0 Assessments Encounter Date Diagnosis (ICD Code) Assessment Notes Treatment Notes Treatment Clinical Notes Section Notes 05/11/2024 Type 2 diabetes mellitus with diabetic polyneuropathy (ICD-10 - E11.42) 05/11/2024 Tinea unguium (ICD-10 - B35.1) 08/10/2024 Type 2 diabetes mellitus with diabetic polyneuropathy (ICD-10 - E11.42) 08/10/2024 Tinea unguium (ICD-10 - B35.1) 11/09/2024 Type 2 diabetes mellitus with diabetic polyneuropathy (ICD-10 - E11.42) 11/09/2024 Tinea unguium (ICD-10 - B35.1) 02/08/2025 Type 2 diabetes mellitus with diabetic polyneuropathy (ICD-10 - E11.42) 02/08/2025 Tinea unguium (ICD-10 - B35.1) 11/09/2024 Subungual hematoma of right foot, initial encounter (ICD-10 - S90.221A) 02/08/2025 Other hammer toe(s) (acquired), right foot (ICD-10 - M20.41) Patient Educated with: DIABETIC FOOT CARE INSTRUCTIONS. pdf (DIABETIC FOOT CARE INSTRUCTIONS. pdf) 08/10/2024 Ingrown nail (ICD-10 - L60.0) 05/11/2024 Other hammer toe(s) (acquired), right foot (ICD-10 - M20.41) Response to treatment,Impro vement 05/11/2024 Other hammer toe(s) (acquired), left foot (ICD-10 - M20.42) Response to treatment,Impro vement 02/08/2025 Other hammer toe(s) (acquired), left foot (ICD-10 - M20.42) 05/11/2024 Subungual hematoma of left foot, initial encounter (ICD-10 - S90.222A) 02/08/2025 Ingrown nail (ICD-10 - L60.0) Plan Of Treatment Pending Test Test Name Order Date Hemoglobin A1c 03/06/2015 91442-FSIJYML NAIL, 6 OR MORE 03/06/2015 65761-KFQQBBL NAIL, 6 OR MORE 06/12/2015 23950-UDAUHWZ NAIL, 6 OR MORE 09/04/2015 53658-UDUGNCF NAIL, 6 OR MORE 12/04/2015 47152-XWNWZJP NAIL, 6 OR MORE 02/20/2016 60957-PZPEQMW NAIL, 6 OR MORE 08/19/2016 17588-VKMMEZJ NAIL, 6 OR MORE 05/21/2016 02192-LXLBLDV NAIL, 6 OR MORE 11/18/2016 17551-ZWLCZWW NAIL, 6 OR MORE 03/01/2017 58274-YEQGCZU NAIL, 6 OR MORE 06/28/2017 21205-NCMAUAY NAIL, 6 OR MORE 10/04/2017 00726-TXBGNTA NAIL, 6 OR MORE 01/03/2018 34334-KFOANYE NAIL, 6 OR MORE 04/04/2018 61680-EJUFXOW NAIL, 6 OR MORE 07/18/2018 61592-WJATXVB NAIL, 6 OR MORE 11/07/2018 12817-HSMEQHI NAIL, 6 OR MORE 02/22/2019 18139-YXDLGLP NAIL, 6 OR MORE 05/24/2019 88267-QQHYSDT NAIL, 6 OR MORE 08/03/2019 97974-QSTHHLO NAIL, 6 OR MORE 11/02/2019 89870-XVLSMVO NAIL, 6 OR MORE 02/01/2020 50286-JYWBEXT NAIL, 6 OR MORE 04/22/2020 13975-BFNXKCK NAIL, 6 OR MORE 07/15/2020 32182-QSLPXHT NAIL, 6 OR MORE 10/14/2020 32095-QMOSNPZ NAIL, 6 OR MORE 01/13/2021 12525-OOBIBWV NAIL, 6 OR MORE 04/14/2021 48615-LAZTNDL NAIL, 6 OR MORE 08/14/2021 47100-AACVVWM NAIL, 6 OR MORE 10/29/2021 43749-ADAWZOJ NAIL, 6 OR MORE 01/21/2022 46018-XGUYCMF NAIL, 6 OR MORE 04/22/2022 35019-QIPNIGF NAIL, 6 OR MORE 07/29/2022 46873-JCZSJBU NAIL, 6 OR MORE 11/04/2022 26182-WLHTFYW NAIL, 6 OR MORE 01/27/2023 73027-NYDLEFY NAIL, 6 OR MORE 05/10/2023 34816-RDDNJEA NAIL, 6 OR MORE 08/11/2023 77836-CFJDHAF NAIL, 6 OR MORE 11/10/2023 65185-MRJLHMF NAIL, 6 OR MORE 02/09/2024 43013-AXSSGHC NAIL, 6 OR MORE 05/11/2024 48470-RQBEFSG NAIL, 6 OR MORE 08/10/2024 62652-LCUOIJN NAIL, 6 OR MORE 11/09/2024 17859-LSKMQCG NAIL, 6 OR MORE 02/08/2025 26417-Drhqruuj Plate 08/10/2024 46093-Ipepdtpv Plate 02/08/2025 08704-Vqvwfpvi Plate 02/09/2024 53667-Hggnwenm Plate 08/11/2023 37645-Xctxuqbh Plate 07/29/2022 39725-Qlbkehie Plate 05/10/2023 60490-Uslxgehz Plate 11/04/2022 80100-Sqicndob Plate 01/21/2022 33981-Joryybkl Plate 10/29/2021 20267-Kiqgbzyc Plate 08/14/2021 59207-Evqkansk Plate 04/14/2021 70614-Kzghjddq Plate 01/13/2021 94910-Jhqljwjr Plate 10/14/2020 47350-Drkamnua Plate 07/15/2020 66300-Idcgmkfq Plate 04/22/2020 86125-Reifyeci Plate 02/01/2020 63220-Ikkrrqrc Plate 11/02/2019 92269-Tcrbyboo Plate 08/03/2019 93799-Ctexpzxy Plate 05/24/2019 79686-Probbyya Plate 02/22/2019 39734-Awathcsf Plate 11/07/2018 81509-Spumbnyw Plate 07/18/2018 44106-Oygwmyqe Plate 04/04/2018 69001-Waumjgbg Plate 01/03/2018 56572-Cvjbvihv Plate 10/04/2017 68409-Uioqjulp Plate 06/28/2017 56514-Mpgfcqto Plate 03/01/2017 12834-Rzposgre Plate 08/19/2016 51584-Uhxumnxw Plate 06/12/2015 21602-Mnwccdjp Plate Each Additional 11/2015 74156-Kbqsbrfs Plate Each Additional 85013- Debride <25 sq cm 07/18/2018 61473 I&D ABSCESS- SIMPLE,SINGLE 024 46329- I&D ABSCESS-COMPLICATED,MULTI 70861-SBOL SKIN LESIONS, OVER 4 04/04/20 18 45574-VAEP SKIN LESIONS, OVER 4 01/04/20 18 02225-SINV SKIN LESIONS, OVER 4 03/01/20 17 71825-XXOP SKIN LESIONS, OVER 4 05/21/20 16 72967-OFAU SKIN LESIONS, OVER 4 06/28/19 18 16533-BPXI SKIN LESIONS, OVER 4 10/05/19 18 74357-SYZM SKIN LESIONS, OVER 4 06/12/19 16 76175-COEM SKIN LESIONS, OVER 4 09/04/19 16 55722-LZPU SKIN LESIONS, OVER 4 03/06/20 15 56618-VCZR SKIN LESIONS, OVER 4 08/20/19 17 03657-RIFX SKIN LESIONS, OVER 4 11/19/19 17 68595-JLBF SKIN LESIONS, OVER 4 02/20/20 16 22927-ATHB SKIN LESIONS, OVER 4 12/04/19 16 87689-SGJZ SKIN LESIONS, OVER 4 07/18/19 19 03741-CPPU SKIN LESIONS, OVER 4 11/08/19 19 26046-GSYT SKIN LESIONS, OVER 4 02/23/20 19 55662-TOQK SKIN LESIONS, OVER 4 05/24/20 19 52147-KQVH SKIN LESIONS, OVER 4 08/03/19 20 45383-UOJP SKIN LESIONS, OVER 4 11/02/19 20 63827-LBYU SKIN LESIONS, OVER 4 02/01/20 20 80811-JYSI SKIN LESIONS, OVER 4 04/22/20 20 62743-TZZH SKIN LESIONS, OVER 4 07/15/19 21 04189-TUFB SKIN LESIONS, OVER 4 10/15/19 22259-HIMP SKIN LESIONS, OVER 4 01/14/20 90630-JUKP SKIN LESIONS, OVER 4 04/14/20 54195-WAVP SKIN LESIONS, OVER 4 08/15/19 22 00508-BZTJ SKIN LESIONS, OVER 4 10/30/19 22 01692-YVMF SKIN LESIONS, OVER 4 05/11/20 14462-UCCW SKIN LESIONS, OVER 4 02/09/20 24 50826-IWCR SKIN LESIONS, OVER 4 11/10/19 24 50101-ONCF SKIN LESIONS, OVER 4 02/09/20 69233-YLGF SKIN LESIONS, OVER 4 11/10/19 31438-MTJT SKIN LESIONS, OVER 4 08/11/19 84622-OKIR SKIN LESIONS, OVER 4 01/22/20 37031-YFKQ SKIN LESIONS, OVER 4 04/22/20 01237-YKZT SKIN LESIONS, OVER 4 11/05/19 23 71191-LNOF SKIN LESIONS, OVER 4 07/29/19 36739-AASR SKIN LESIONS, OVER 4 08/11/19 24 62490-ORJZ SKIN LESIONS, OVER 4 05/10/20 94856-GHXH SKIN LESIONS, OVER 4 01/28/20 23 88459-Ghpj. Subungual Hematoma 4 10985-Negm. Subungual Hematoma 1 Next Appt Details Provider Name:Edy Ann , 05/24/2025 10:30:00 AM, [address] [facility], [address], [place], [address], Insurance Providers Payer Name Payer Address Payer Phone Subscriber Number Group Number Insured Name Patient Relationship to Insured Coverage Start Date Coverage End Date Medicare National [employer] [address] [place] [address] [id number] Kevin Daly Self - patient is the insured [employer] [place] Medicare Advantage [facility] [address] [place] [address] [id number] Kevin Daly Self - patient is the insured Medical (General) History Medical History History ICD Code Back,Hip,and Knee pain type II diabetes High blood pressure Reflux Measles Mumps Chicken pox Cholesterol Surgical History Surgery Date(Month/Year) tonsillectomy rotator cuff tear repair 11/29/17 [facility] biopsy kidney 05/2019 Hospitalization History Reason Date(Month/Year) [facility] [place]- heart monitor, 2 days 09/2022 [facility] biopsy kidney 04/20/22 [facility] [place]- pneumonia 09/2020 [facility] [place] Kidney stone 01/14/19 [facility] rotator cuff surgery left arm
== END 2025-03-30 11:20 | disposition home or self-care (01) ==
LOC: HO.HMCC 10:07
PROVIDERS: PCP Internal Medicine; Visit Provider Internal Medicine
DX: Z00.00 Encounter for general adult medical examination without abnormal findings (principal); I12.9 Hypertensive chronic kidney disease with stage 1 through stage 4 chronic kidney disease, or unspecified chronic kidney disease; E11.40 Type 2 diabetes mellitus with diabetic neuropathy, unspecified; N18.30 Chronic kidney disease, stage 3 unspecified; E78.5 Hyperlipidemia, unspecified

== ENCOUNTER → 2025-03-30 10:06 | Outpatient (BNVA) | payer MEDICARE, OTHER, SELFPAY | PROVIDERS: PCP Internal Medicine; Visit Provider Internal Medicine | DX: Z00.00 Encounter for general adult medical examination without abnormal findings (principal); N18.30 Chronic kidney disease, stage 3 unspecified; I10 Essential (primary) hypertension; E78.5 Hyperlipidemia, unspecified; E11.40 Type 2 diabetes mellitus with diabetic neuropathy, unspecified; Z13.31 Encounter for screening for depression | CPT/HCPCS: 96127; 99397 ==

== ENCOUNTER 2025-04-25 08:31 | Outpatient (AMB) | payer MEDICARE, OTHER, SELFPAY ==
[2025-04-25 08:38] VITALS: BP 118/68; PULSE 68; RESP 16; O2SAT 98; BMI 27.5
--- NOTE | 2025-04-25 08:38 | MHC.PC.OV ---
Vital Signs 04/25/25 08:38 Height 6 ft 3 in Weight 220 lb BMI 27.5 BP 118/68 Blood Pressure Location Lt brachial Position Sitting Respiration 16 Pulse 68 Pulse Source Pulse Oximeter Pulse Oximetry (%) 98 Oxygen Delivery Method Room Air Intake Visit Reasons: 1 month follow up Intake Note: Pt is here today for 1 month follow up visit. Allergies No Known Allergies (No Known Allergies*) Allergy (Verified 04/25/25 08:40) Medication List - Last Reconciled 04/25/25 by Renetta Rangel MD amlodipine 10 mg PO DAILY atorvastatin 20 mg PO DAILY blood sugar diagnostic (Accu-Chek Maris Plus test strips) use one strip once a day to test blood sugar dapagliflozin propanediol (Farxiga) 10 mg PO DAILY flu vac 2020 65up-qjoPW72S(PF) 60 mcg (15 mcg x 4)/0.5 mL mL IM lancets (Accu-Chek Fastclix Lancet Drum) use to test blood sugar once a day lisinopril 10 mg PO DAILY metformin 500 mg PO BID miscellaneous medical supply diabetic shoes as directed QD; omeprazole 20 mg PO DAILY pneumoc 13-yogesh conj-dip cr(PF) mL IM Tobacco use date assessed: 03/30/25 Dental Screening Dental Screen Date: 07/11/24 HPI 1 month follow up HPI Details Patient presents for the follow-up of type 2 diabetes hypertension hyperlipidemia. He has been monitoring his fasting blood glucose with the readings between 120-170. Patient has been improving his diet becoming more aware of high carbohydrate load. Patient is planning to start regular cardiovascular exercise. Hypertension hyperlipidemia controlled on current medications, [facility] Medical History Annual physical exam Pneumonia Lumbar disc disease Renal mass CKD (chronic kidney disease) stage 3, GFR 30-59 ml/min Overweight Hyperlipidemia HTN (hypertension) Type 2 diabetes mellitus Surgical History H/O colonoscopy Family History Father MVA (motor vehicle accident) Mother Heart failure Social History Housing: House Alcohol intake: current Alcohol intake frequency: a few times a week Patient Tobacco Use Status: Never used Tobacco e-Cigarette/Vaping Use: Never Used service: Yes Current occupational status: retired Cognitive needs: No Hearing needs: Yes Vision needs: Yes Questionnaire Thrive Questionnaire Date Thrive assessed: 07/04/24 I am a: Patient What is your living situation today?: I have a steady place to live Within the past 12 months, did the food you bought not last and you didn't have the money to get more?: Never true Within the past 12 months, did you worry whether your food would run out before you got money to buy more?: Never true Do you have trouble paying for medicines?: No Do you have trouble getting transportation to medical appointments?: No Do you have trouble paying your heating and electricity bill?: No Do you have trouble taking care of your child, family member or friend?: No Do you have trouble with day-to-day activities such as bathing, preparing meals, shopping, managing finances, etc.?: No Are you currently unemployed and looking for a job?: No Are you interested in more education?: No Please select the resources that you would like help with: None Currently or been in a relationship where the following occur: No concerns reported THRIVE Score: 0 ARAM-7 AMB Questionnaire ARAM-7 Date ARAM - 7 assessed: 07/11/24 Source: Developed by Drs. Nain Goss, Ramya Rudolph, Edgard Langston and colleagues, with an educational cornell from [employer]. Review of Systems Const All systems reviewed & are unremarkable except as noted in HPI and below Eyes Reports no additional complaints ENT Reports no additional complaints Card Reports no additional complaints Resp Reports no additional complaints GI Reports no additional complaints Reports no additional complaints Physical exam (Primary Care) Vital Signs: Last Vital Signs Pulse 68 04/25/25 08:38 Resp 16 04/25/25 08:38 BP 118/68 04/25/25 08:38 Pulse Ox 98 04/25/25 08:38 Oxygen Delivery Method Room Air 04/25/25 08:38 BMI result Body Mass Index 27.5 Tobacco/Smoking Status: Tobacco use Status Tobacco use date assessed 03/30/25 04/25/25 08:40 Patient Tobacco Use Status Never used Tobacco 04/25/25 08:40 e-Cigarette/Vaping Use Never Used 04/25/25 08:40 Thrive Assessment: Date of Thrive Assessment Date Thrive assessed 07/04/24 04/25/25 08:40 Currently or been in a relationship where the following occur: No concerns reported Const General: no acute distress HENMT Head: Yes normal to inspection Face and sinus: Yes normal facial exam Eyes General: appearance normal, both eyes and all related structures Neck Neck: Yes supple Resp Effort & Inspection: normal respiratory effort Auscultation: clear to auscultation bilaterally Cardio Rhythm: regular rhythm Heart sounds: S1 normal heart sound present and S2 normal heart sound present GI Inspection: Yes normal to inspection Coding Level of Care Code Est Pt Level 4 (86124) Diagnoses HTN (hypertension) I10 Diabetes mellitus E11.9 CKD (chronic kidney disease) stage 3, GFR 30-59 ml/min N18.30 Chronic kidney disease stage 3 subtype: unspecified whether 3a or 3b Assessment & Plan Assessment & Plan (1) HTN (hypertension): Comment: BP < 130/80 Code(s): I10 - Essential (primary) hypertension Category: Medical Plan: Continue current medications (2) Diabetes mellitus: Code(s): E11.9 - Type 2 diabetes mellitus without complications Category: Medical Plan: ADA diet increase physical activity weight loss discussed with the patient. Mounjaro 2.5 mg weekly will be started. Patient will follow-up in 1 month with a fasting labs before (3) CKD (chronic kidney disease) stage 3, GFR 30-59 ml/min: Comment: Follow-up with nephrology Code(s): N18.30 - Chronic kidney disease, stage 3 unspecified Category: Medical Qualifiers: Chronic kidney disease stage 3 subtype: unspecified whether 3a or 3b Qualified Code(s): N18.30 - Chronic kidney disease, stage 3 unspecified Plan: Avoid nephrotoxins monitor renal function Medications: New Mounjaro (tirzepatide) 2.5 mg (0.5 mL) subcut QWEEK 2 mL 3RF NS
--- OUTSIDE RECORDS SUMMARY | 2025-04-25 16:17 | XMS_ITS | Encounter Summary ---
Author Organization [facility] Address [address] [place] [address] Care Team Providers Care Riding Silks Custodian Name Role Phone Renetta Rangel MD Primary Care Provider [phone] Encounter Details Date Type Department Care Team (Late st Contact Info) Description 03/09/2019 Scanned Document [facility] Urologic Surgery Jamila [address] [place] [id number] Provider, MD Sun [address] [place] [address] Social History Tobacco Use Types Packs/Day Years Used Date Smoking Tobacco: Never Assessed Sex and Gender Information Value Date Recorded Sex Assigned at Male 05/16/2024 11:54 AM EST Legal Sex Male 2:22 PM EDT Gender Identity Male 05/16/2024 11:54 AM EST Sexual Orientation Not on file documented as of this encounter Plan of Treatment Not on file documented as of this encounter Visit Diagnoses Not on filedocumented in this encounter Care Teams Riding Silks Custodian Relationship Specialty Start Date End Date Renetta Rangel MD [address] [place] [address] PCP - General 03/08/19 documented as of this encounter
--- OUTSIDE RECORDS SUMMARY | 2025-04-25 16:17 | XMS_ITS | Patient Health Record ---
[facility] Organization [facility] Address [address] [place] [address] Care Team Providers Care Poultice Machine Operator Name Role Phone Renetta Rangel MD Primary Care Provider Edy Fonseca Unavailable [phone] Allergies Allergen (clinical drug ingredient) Drug/Non Drug [...] Active Lisinopril 10 MG (Prior Auth: Rx Ref#:[id number]) Oral; Duration: 90 Active metFORMIN HCl 500 MG 1 tablet with meals Orally Twice a day Active Doxycycline Hyclate Not-Taking Allergy Relief Activ e Gabapentin Not-Takin g Simvastatin 20 MG (Prior Auth: Rx Ref#:[id number]) Oral; Duration: 90 Not-Taking Atorvastatin Calcium Active [...] Problem Acquired hammer toe of right foot (5552109874026127 ) Other hammer toe(s) (acquired), right foot (M20.41) Active confirmed Response to treatment, Improvemen t Problem Acquired hammer toe of left foot (8513114115505840 ) Other hammer toe(s) (acquired), left foot (M20.42) Active confirmed Response to treatment, Improvemen t Problem Polyneuropathy due to type 2 diabetes mellitus (044489035) Type 2 diabetes mellitus with diabetic polyneuropathy (E11.42) Active confirmed Vital Signs Blood pressure diastolic 65 mm Hg 02/08/2025 Height 6ft 3in in 02/08/2025 Blood pressure systolic 130 mm Hg 02/08/2025 Weight 220 lbs 02/08/2025 BMI 27.5 kg/m2 02/08/2025 Procedures Procedure Date Ordered Date Performed Result Body Sit e 45317-TOQFJPH NAIL, 6 OR MORE 05/11/2024 N/A 28368-GERK SKIN LESIONS, OVER 4 05/11/2024 N/A 04054-Hqef. Subungual Hematoma 05/11/2024 N/A 68491-YMVZVQB NAIL, 6 OR MORE 08/10/2024 N/A 00186-Wgnwuvwj Plate 08/10/2024 N/A 13854-QYBR SKIN LESIONS, OVER 4 08/10/2024 N/A 40494-ZCZRAGD NAIL, 6 OR MORE 11/09/2024 N/A 02055-XUQT SKIN LESIONS, OVER 4 11/09/2024 N/A 52077-RAJITYD NAIL, 6 OR MORE 02/08/2025 N/A 15205-Dornpnzd Plate 02/08/2025 N/A 74427-ZIYW SKIN LESIONS, OVER 4 02/08/2025 N/A Encounters Encounter Location Date Provider Diagnosis [address] [address] 05/11/2024 Edy Whaleyunier Type 2 diabetes mellitus with diabetic polyneuropathy E11.42 ; Tinea unguium B35.1 ; Other hammer toe(s) (acquired), right foot M20.41 ; Other hammer toe(s) (acquired), left foot M20.42 and Subungual hematoma of left foot, initial encounter S90.222A [address] [address] 08/10/2024 Edyruy WhaleySeth Type 2 diabetes mellitus with diabetic polyneuropathy E11.42 ; Tinea unguium B35.1 and Ingrown nail L60.[address] [address] 11/09/2024 Edyruy WhaleySeth Type 2 diabetes mellitus with diabetic polyneuropathy E11.42 ; Tinea unguium B35.1 and Subungual hematoma of right foot, initial encounter S90.221A [facility] [place] [address] [facility] [address] [place] [address] 02/08/2025 Edy Ann Type 2 diabetes mellitus [...] Test Name Order Date Hemoglobin A1c 03/06/2015 85528-ROICHKY NAIL, 6 OR MORE 03/06/2015 24447-QGLSLDA NAIL, 6 OR MORE 06/12/2015 17661-EHDPMQA NAIL, 6 OR MORE 09/04/2015 10567-MRUADZN NAIL, 6 OR MORE 12/04/2015 90740-URUNONU NAIL, 6 OR MORE 02/20/2016 87431-FSXOOZG NAIL, 6 OR MORE 08/19/2016 12926-DRRWSQY NAIL, 6 OR MORE 05/21/2016 85531-ZYHTOHF NAIL, 6 OR MORE 11/18/2016 98815-LTNROGQ NAIL, 6 OR MORE 03/01/2017 25187-OGTYXUQ NAIL, 6 OR MORE 06/28/2017 78118-CDRDLDC NAIL, 6 OR MORE 10/04/2017 01531-QRKVSFE NAIL, 6 OR MORE 01/03/2018 33147-YIGFLOO NAIL, 6 OR MORE 04/04/2018 23431-TNDVXYS NAIL, 6 OR MORE 07/18/2018 88008-MRLRGXH NAIL, 6 OR MORE 11/07/2018 97038-ZSFWCSO NAIL, 6 OR MORE 02/22/2019 06189-UYGJJSG NAIL, 6 OR MORE 05/24/2019 08038-XUVTJKK NAIL, 6 OR MORE 08/03/2019 05171-QQECENM NAIL, 6 OR MORE 11/02/2019 88782-ZKHLIUD NAIL, 6 OR MORE 02/01/2020 05143-VCXAABC NAIL, 6 OR MORE 04/22/2020 17627-OBRFGVM NAIL, 6 OR MORE 07/15/2020 82268-ZMZYKGI NAIL, 6 OR MORE 10/14/2020 51242-SPWVUDI NAIL, 6 OR MORE 01/13/2021 45556-DSQALOE NAIL, 6 OR MORE 04/14/2021 11363-EQUBJSC NAIL, 6 OR MORE 08/14/2021 42247-EPSMRQH NAIL, 6 OR MORE 10/29/2021 96371-YINATZY NAIL, 6 OR MORE 01/21/2022 38621-CWKFOPQ NAIL, 6 OR MORE 04/22/2022 17470-LFDGHIT NAIL, 6 OR MORE 07/29/2022 65036-HBIZBVO NAIL, 6 OR MORE 11/04/2022 11350-ZCTNVBH NAIL, 6 OR MORE 01/27/2023 17002-EUPIMOZ NAIL, 6 OR MORE 05/10/2023 78977-WDKBMMB NAIL, 6 OR MORE 08/11/2023 99777-LGULTYL NAIL, 6 OR MORE 11/10/2023 78145-SSUZDQW NAIL, 6 OR MORE 02/09/2024 74188-EKAEMMX NAIL, 6 OR MORE 05/11/2024 61854-ZOYDJMR NAIL, 6 OR MORE 08/10/2024 54171-JXSXEZB NAIL, 6 OR MORE 11/09/2024 68952-EEQTFFM NAIL, 6 OR MORE 02/08/2025 70010-Rszyncjk Plate 08/10/2024 11433-Qqerhzqv Plate 02/08/2025 98705-Wiuemibw Plate 02/09/2024 34655-Qpkfyhby Plate 08/11/2023 31104-Eakoqwjz Plate 07/29/2022 41070-Biindtjq Plate 05/10/2023 04200-Cakeyoxo Plate 11/04/2022 24483-Qudzhcmw Plate 01/21/2022 61094-Gxmvjlpp Plate 10/29/2021 87847-Ftadmgiu Plate 08/14/2021 09798-Bcvanfid Plate 04/14/2021 79133-Xhjmxkbf Plate 01/13/2021 94962-Dxgxjfof Plate 10/14/2020 10190-Dkhkysbz Plate 07/15/2020 37236-Dvcaxwpb Plate 04/22/2020 63572-Cfywnqpu Plate 02/01/2020 59003-Xxyvkhxa Plate 11/02/2019 56991-Dyvnktsg Plate 08/03/2019 03434-Ylyfarwn Plate 05/24/2019 41672-Poqvjcva Plate 02/22/2019 00412-Hanaziup Plate 11/07/2018 00353-Rpnseymh Plate 07/18/2018 90408-Qttxxjfk Plate 04/04/2018 07389-Uvcgvipu Plate 01/03/2018 39907-Hjpcvazw Plate 10/04/2017 04581-Mynhqefr Plate 06/28/2017 82844-Dozkltxe Plate 03/01/2017 09474-Mgvqdgtu Plate 08/19/2016 94864-Xiqmnuud Plate 06/12/2015 24861-Hbuwwrrc Plate Each Additional 11/2015 10409-Ymdrkflp Plate Each Additional 63739- Debride <25 sq cm 07/18/2018 75710 I&D ABSCESS- SIMPLE,SINGLE 024 54551- I&D ABSCESS-COMPLICATED,MULTI 78081-EQTJ SKIN LESIONS, OVER 4 04/04/20 18 90905-QZUG SKIN LESIONS, OVER 4 01/04/20 18 00178-FYXS SKIN LESIONS, OVER 4 03/01/20 17 51340-XQCH SKIN LESIONS, OVER 4 05/21/20 16 19989-IAPF SKIN LESIONS, OVER 4 06/28/19 18 51086-NFYD SKIN LESIONS, OVER 4 10/05/19 18 06173-VXPK SKIN LESIONS, OVER 4 06/12/19 16 94694-HSBK SKIN LESIONS, OVER 4 09/04/19 16 35033-DQOK SKIN LESIONS, OVER 4 03/06/20 15 19328-PTHB SKIN LESIONS, OVER 4 08/20/19 17 06673-OBYN SKIN LESIONS, OVER 4 11/19/19 17 45957-RWSR SKIN LESIONS, OVER 4 02/20/20 16 19583-YMKO SKIN LESIONS, OVER 4 12/04/19 16 34397-CITY SKIN LESIONS, OVER 4 07/18/19 19 45976-AFGA SKIN LESIONS, OVER 4 11/08/19 19 62979-WYSE SKIN LESIONS, OVER 4 02/23/20 19 18462-ZKKP SKIN LESIONS, OVER 4 05/24/20 19 95612-LKSS SKIN LESIONS, OVER 4 08/03/19 20 26189-MWCB SKIN LESIONS, OVER 4 11/02/19 20 73903-TEFM SKIN LESIONS, OVER 4 02/01/20 20 86068-LXML SKIN LESIONS, OVER 4 04/22/20 20 96799-VTJK SKIN LESIONS, OVER 4 07/15/19 21 27616-JEBH SKIN LESIONS, OVER 4 10/15/19 58897-XPXX SKIN LESIONS, OVER 4 01/14/20 95160-INKX SKIN LESIONS, OVER 4 04/14/20 76524-OBKL SKIN LESIONS, OVER 4 08/15/19 22 45279-NZWL SKIN LESIONS, OVER 4 10/30/19 22 57483-XZWT SKIN LESIONS, OVER 4 05/11/20 18511-TTMX SKIN LESIONS, OVER 4 02/09/20 24 26949-METI SKIN LESIONS, OVER 4 11/10/19 24 81515-OGRY SKIN LESIONS, OVER 4 02/09/20 10550-VHQO SKIN LESIONS, OVER 4 11/10/19 66631-GSSV SKIN LESIONS, OVER 4 08/11/19 75322-DZRS SKIN LESIONS, OVER 4 01/22/20 92565-GUGZ SKIN LESIONS, OVER 4 04/22/20 50831-MLHZ SKIN LESIONS, OVER 4 11/05/19 23 60322-QNZY SKIN LESIONS, OVER 4 07/29/19 87941-NAZE SKIN LESIONS, OVER 4 08/11/19 24 68432-RXQD SKIN LESIONS, OVER 4 05/10/20 79391-QUVL SKIN LESIONS, OVER 4 01/28/20 23 58567-Jxhp. Subungual Hematoma 4 11192-Warj. Subungual Hematoma 1 Next Appt Details Provider Name:Edy Ann , 05/24/2025 10:30:00 AM, [address] [facility], [address], [place], [address], Insurance Providers Payer Name Payer Address Payer Phone Subscriber Number Group Number Insured Name Patient Relationship to Insured Coverage Start Date Coverage End Date Medicare National [employer] [address] [place] [address] [id number] Kevin Daly Self - patient is the insured [employer] [place] Medicare Advantage [facility] [address] [place] [address] [id number] Kevin Daly Self - patient is the insured Medical (General) History Medical History History ICD Code Back,Hip,and Knee pain type II diabetes High blood pressure Reflux Measles Mumps Chicken pox Cholesterol Surgical History Surgery Date(Month/Year) tonsillectomy rotator cuff tear repair 11/29/17 [facility] biopsy kidney 05/2019 Hospitalization History Reason Date(Month/Year) [facility]- heart monitor, 2 days 09/2022 [facility] biopsy kidney 04/20/22 [facility]- pneumonia 09/2020 [facility] Kidney stone 01/14/19 [facility] rotator cuff surgery left arm
--- OUTSIDE RECORDS SUMMARY | 2025-04-25 16:17 | XMS_ITS | Encounter Summary ---
Author Organization [facility] Address [address] [place] [address] Care Team Providers Care Data Acquisition Technician Name Role Phone Renetta Rangel MD Primary Care Provider [phone] Encounter Details Date Type Department Care Team (Late st Contact Info) Description 03/09/2019 Scanned Document [facility] Urologic Surgery Jamila [address] [place] [address] Provider, MD Sun [address] [place] [address] Social History Tobacco Use Types Packs/Day Years [...] on filedocumented in this encounter Care Teams Data Acquisition Technician Relationship Specialty Start Date End Date Renetta Rangel MD [address] [place] [address] PCP - General 03/08/19 documented as of this encounter
--- OUTSIDE RECORDS SUMMARY | 2025-04-25 16:17 | XMS_ITS | Clinical Summary ---
Author Organization [facility] Address [address] [place] [address] Phone Care Team Providers Care Securities Teller Name Role Phone Renetta Rangel MD Primary Care Provider [phone] Allergies No known active allergies Medications amLODIPine [...] of 2 - PCV) 10/04/1966 Influenza Vaccine (#1) 2025 Hepatitis B Vaccine Aged Out No longe r eligible based on patient's age to complete this topic Insurance Medicare [facility] Medicare [facility] Care Teams Securities Teller Relationship Specialty Start Date End Date Renetta Rangel MD [address] [place] [address] PCP - General Internal Medicine 07/17/20
--- OUTSIDE RECORDS SUMMARY | 2025-04-25 16:17 | XMS_ITS | Encounter Summary ---
Author Organization [facility] Address [address] [place] [address] Care Team Providers Care Salesperson Corsets Name Role Phone Renetta Rangel MD Primary Care Provider [phone] Encounter Details Date Type Department Care Team (Late st Contact Info) Description 03/09/2019 Scanned Document [facility] Urologic Surgery Jamila [address] [place] [address] Provider, MD Sun [address] [place] [address] Social History Tobacco Use Types Packs/Day Years [...] on filedocumented in this encounter Care Teams Salesperson Corsets Relationship Specialty Start Date End Date Renetta Rangel MD [address] [place] [address] PCP - General 03/08/19 documented as of this encounter
--- OUTSIDE RECORDS SUMMARY | 2025-04-25 16:17 | XMS_ITS | Clinical Summary ---
Author Organization [facility] Address [address] [place] [address] Care Team Providers Care Java Sql Developer Name Role Phone Renetta Rangel MD Primary Care Provider [phone] Allergies No known active allergies Medications metFORMIN [...] 05/18/2024 2:08 PM EST Plan of Treatment Health Maintenance Due Date Last Done Comments Advance Care Planning 1945 Hepatitis C Virus Screening 1945 DTaP/Tdap/Td Vaccines (1 - Tdap) 10/04/1966 Pneumococcal Vaccines 50+ (1 of 1 - PCV) 10/04/1997 Zoster (Shingles) Vaccine (1 of 2) 10/04/1997 RSV Vaccine 50 years and old er and Patients (1 - 1-dose 75+ series) 10/04/2022 Influenza Vaccine 01/05/2025 COVID-19 Vaccine ( - 2023-2 5 season) 2025 Hepatitis B Vaccines Aged Out No long er eligible based on patient's age to complete this topic Insurance MEDICARE PART A & B [facility] Care Teams Java Sql Developer Relationship Specialty Start Date End Date Renetta Rangel MD [address] [place] [address] PCP - General 03/08/19
== END 2025-04-25 09:24 | disposition home or self-care (01) ==
LOC: HO.HMCC 08:32
PROVIDERS: PCP Internal Medicine; Visit Provider Internal Medicine
DX: I10 Essential (primary) hypertension (principal); E11.9 Type 2 diabetes mellitus without complications; N18.30 Chronic kidney disease, stage 3 unspecified

== ENCOUNTER → 2025-04-25 08:31 | Outpatient (BNVA) | payer MEDICARE, OTHER, SELFPAY | PROVIDERS: PCP Internal Medicine; Visit Provider Internal Medicine | DX: I12.9 Hypertensive chronic kidney disease with stage 1 through stage 4 chronic kidney disease, or unspecified chronic kidney disease (principal); E11.22 Type 2 diabetes mellitus with diabetic chronic kidney disease; N18.30 Chronic kidney disease, stage 3 unspecified | CPT/HCPCS: 99212 ==

== ENCOUNTER 2025-05-24 08:29 | Outpatient (REF) | payer MEDICARE, OTHER, SELFPAY ==
--- OUTSIDE RECORDS SUMMARY | 2025-05-24 08:57 | XMS_ITS | Encounter Summary ---
Author Organization [facility] Address [address] [place] [address] Care Team Providers Care Liquefier Name Role Phone Renetta Rangel MD Primary Care Provider [phone] Encounter Details Date Type Department Care Team (Late st Contact Info) Description 03/09/2019 Scanned Document [facility] Urologic Surgery [facility]ila [address] [place] [address] Provider, MD Sun [address] [place] [address] Social History Tobacco Use Types Packs/Day Years [...] Description 05/25/2025 10:15 AM EST Office Visit [facility] Urology [facility]ila [address] [place] [phone] Jeff Jerez MD [address] [address] documented as of this encounter Visit Diagnoses Not on filedocumented in this encounter Care Teams Liquefier Relationship Specialty Start Date End Date Renetta Rangel MD [address] [place] [address] PCP - General 03/08/19 documented as of this encounter
--- OUTSIDE RECORDS SUMMARY | 2025-05-24 08:57 | XMS_ITS | Clinical Summary ---
Author Organization [facility] Address [address] [place] [address] Phone Care Team Providers Care Paralegal Secretary Name Role Phone Renetta Rangel MD Primary Care Provider [phone] Allergies No known active allergies Medications amLODIPine [...] age to complete this topic Insurance Medicare [facility] Medicare [facility] Care Teams Paralegal Secretary Relationship Specialty Start Date End Date Renetta Rangel MD [address] [place] [address] PCP - General Internal Medicine 07/17/20
--- OUTSIDE RECORDS SUMMARY | 2025-05-24 08:57 | XMS_ITS | Encounter Summary ---
Author Organization [facility] Address [address] [place] [address] Care Team Providers Care Torch Straightener Name Role Phone Renetta Rangel MD Primary Care Provider [phone] Encounter Details Date Type Department Care Team (Late st Contact Info) Description 03/09/2019 Scanned Document [facility] Urologic Surgery Jamila [address] [place] [phone] Provider, MD Sun [address] [place] [address] Social History Tobacco Use Types Packs/Day Years [...] Description 05/25/2025 10:15 AM EST Office Visit [facility] Urology [facility]ila [address] [place] [address] Jeff Jerez MD [address] [address] documented as of this encounter Visit Diagnoses Not on filedocumented in this encounter Care Teams Torch Straightener Relationship Specialty Start Date End Date Renetta Rangel MD [address] [place] [address] PCP - General 03/08/19 documented as of this encounter
--- OUTSIDE RECORDS SUMMARY | 2025-05-24 08:57 | XMS_ITS | Encounter Summary ---
Author Organization [facility] Address [address] [place] [address] Care Team Providers Care Automatic Grinder Operator Name Role Phone Renetta Rangel MD Primary Care Provider [phone] Encounter Details Date Type Department Care Team (Late st Contact Info) Description 03/09/2019 Scanned Document [facility] Urologic Surgery Jamila [address] [place] [phone] Provider, MD Sun [address] [place] [address] Social History Tobacco Use Types Packs/Day Years [...] Description 05/25/2025 10:15 AM EST Office Visit [facility] Urology Jamila [address] [place] [phone] Jeff Jerez MD [address] [address] documented as of this encounter Visit Diagnoses Not on filedocumented in this encounter Care Teams Automatic Grinder Operator Relationship Specialty Start Date End Date Renetta Rangel MD [address] [place] [address] PCP - General 03/08/19 documented as of this encounter
--- OUTSIDE RECORDS SUMMARY | 2025-05-24 08:57 | XMS_ITS | Patient Health Record ---
Author Organization [facility] Address [address] [place] [address] Care Team Providers Care Flange Machine Operator Name Role Phone Renetta Rangel MD Primary Care Provider Edy Fosneca Unavailable [phone] Allergies Allergen (clinical drug ingredient) Drug/Non Drug [...] Active Lisinopril 10 MG (Prior Auth: Rx Ref#:[id number]) Oral; Duration: 90 Active metFORMIN HCl 500 MG 1 tablet with meals Orally Twice a day Active Doxycycline Hyclate Not-Taking Allergy Relief Activ e Gabapentin Not-Takin g Simvastatin 20 MG (Prior Auth: Rx Ref#:[id number]) Oral; Duration: 90 Not-Taking Atorvastatin Calcium Active [...] Problem Acquired hammer toe of right foot (2843184059764547 ) Other hammer toe(s) (acquired), right foot (M20.41) Active confirmed Response to treatment, Improvemen t Problem Acquired hammer toe of left foot (4108861489747658 ) Other hammer toe(s) (acquired), left foot (M20.42) Active confirmed Response to treatment, Improvemen t Problem Polyneuropathy due to type 2 diabetes mellitus (420681257) Type 2 diabetes mellitus with diabetic polyneuropathy (E11.42) Active confirmed Vital Signs Blood pressure diastolic 65 mm Hg 02/08/2025 Height 6ft 3in in 02/08/2025 Blood pressure systolic 130 mm Hg 02/08/2025 Weight 220 lbs 02/08/2025 BMI 27.5 kg/m2 02/08/2025 Procedures Procedure Date Ordered Date Performed Result Body Sit e 99166-GGNTGRE NAIL, 6 OR MORE 08/10/2024 N/A 14647-Ppqyfiwu Plate 08/10/2024 N/A 11117-HWNX SKIN LESIONS, OVER 4 08/10/2024 N/A 18707-EXTHJIE NAIL, 6 OR MORE 11/09/2024 N/A 76003-RDJA SKIN LESIONS, OVER 4 11/09/2024 N/A 20947-XIJGPRJ NAIL, 6 OR MORE 02/08/2025 N/A 37839-Nfdxuepd Plate 02/08/2025 N/A 40139-KHDM SKIN LESIONS, OVER 4 02/08/2025 N/A Encounters Encounter Location Date Provider Diagnosis [address] [address] 08/10/2024 Edy Ann Type 2 diabetes mellitus with diabetic polyneuropathy E11.42 ; Tinea unguium B35.1 and Ingrown nail L60.[address] [address] 11/09/2024 Edy Ann Type 2 diabetes mellitus with diabetic polyneuropathy E11.42 ; Tinea unguium B35.1 and Subungual hematoma of right foot, initial encounter S90.221A [address] [address] 02/08/2025 Edy Whaleyunier Type 2 diabetes mellitus with [...] pdf) 08/10/2024 Ingrown nail (ICD-10 - L60.0) 02/08/2025 Other hammer toe(s) (acquired), left foot (ICD-10 - M20.42) 02/08/2025 Ingrown nail (ICD-10 - L60.0) Plan Of Treatment Pending Test Test Name Order Date Hemoglobin A1c 03/06/2015 52437-LZAXHPM NAIL, 6 OR MORE 03/06/2015 05943-IXVHEVL NAIL, 6 OR MORE 06/12/2015 50014-JOAFLJF NAIL, 6 OR MORE 09/04/2015 41482-OJCDNLM NAIL, 6 OR MORE 12/04/2015 43588-DCFYUIM NAIL, 6 OR MORE 02/20/2016 01288-AGULOUS NAIL, 6 OR MORE 08/19/2016 42530-HBTPGLU NAIL, 6 OR MORE 05/21/2016 73310-EFTQPJE NAIL, 6 OR MORE 11/18/2016 82761-MHGQWTD NAIL, 6 OR MORE 03/01/2017 91474-IVWATBV NAIL, 6 OR MORE 06/28/2017 44972-YQVHQAT NAIL, 6 OR MORE 10/04/2017 55675-AFAUPWO NAIL, 6 OR MORE 01/03/2018 57733-EUOIDCX NAIL, 6 OR MORE 04/04/2018 43955-HCXRWXP NAIL, 6 OR MORE 07/18/2018 32614-KSJEYLN NAIL, 6 OR MORE 11/07/2018 65913-AVYBYPR NAIL, 6 OR MORE 02/22/2019 59564-PFPIXGD NAIL, 6 OR MORE 05/24/2019 09752-XAYFIAK NAIL, 6 OR MORE 08/03/2019 79272-VVBLLKF NAIL, 6 OR MORE 11/02/2019 97114-VJNNUQC NAIL, 6 OR MORE 02/01/2020 51313-LHYQDXZ NAIL, 6 OR MORE 04/22/2020 29414-BVZGEYB NAIL, 6 OR MORE 07/15/2020 03270-DMSRAYA NAIL, 6 OR MORE 10/14/2020 53003-UXHSALK NAIL, 6 OR MORE 01/13/2021 02570-NHZRRQI NAIL, 6 OR MORE 04/14/2021 14707-KXPGSFX NAIL, 6 OR MORE 08/14/2021 54382-WIDKPOV NAIL, 6 OR MORE 10/29/2021 62613-BGADBZI NAIL, 6 OR MORE 01/21/2022 01079-IZYWKQI NAIL, 6 OR MORE 04/22/2022 79682-KUIGROH NAIL, 6 OR MORE 07/29/2022 30270-QJCQLQE NAIL, 6 OR MORE 11/04/2022 99561-GFZAAFT NAIL, 6 OR MORE 01/27/2023 46454-SFNMUDV NAIL, 6 OR MORE 05/10/2023 81312-XFPXBQP NAIL, 6 OR MORE 08/11/2023 28892-CTAOWMM NAIL, 6 OR MORE 11/10/2023 00174-OPMQIFQ NAIL, 6 OR MORE 02/09/2024 78027-KYKMKBP NAIL, 6 OR MORE 05/11/2024 63200-GKAAIQT NAIL, 6 OR MORE 08/10/2024 70912-BSOSOAA NAIL, 6 OR MORE 11/09/2024 26207-VEMCLQH NAIL, 6 OR MORE 02/08/2025 63707-Tbkxigzs Plate 08/10/2024 44759-Snwempzs Plate 02/08/2025 13716-Cxbhsjxs Plate 02/09/2024 91690-Jznsuvpd Plate 08/11/2023 19241-Txftgugq Plate 07/29/2022 68916-Lbnsbuxr Plate 05/10/2023 52847-Dbucvrfd Plate 11/04/2022 92706-Alpdtxfc Plate 01/21/2022 31541-Homnaaej Plate 10/29/2021 45189-Hmhbhnpf Plate 08/14/2021 98865-Atggzxrk Plate 04/14/2021 52230-Vgwfvaqy Plate 01/13/2021 38002-Veubvujg Plate 10/14/2020 92932-Xrxptmbw Plate 07/15/2020 48634-Wzvjhdkk Plate 04/22/2020 67759-Dwttldfc Plate 02/01/2020 35776-Hcuebeoj Plate 11/02/2019 81440-Ondbwkvu Plate 08/03/2019 17310-Btcgbflf Plate 05/24/2019 30620-Ysgerccr Plate 02/22/2019 67916-Yvekjyqv Plate 11/07/2018 03609-Atljhvwh Plate 07/18/2018 77931-Nhsueclq Plate 04/04/2018 17771-Wqxthiek Plate 01/03/2018 06587-Jhhmyxlh Plate 10/04/2017 69994-Knfwlpcj Plate 06/28/2017 76109-Ysfxhbng Plate 03/01/2017 90166-Dqzemaqn Plate 08/19/2016 55672-Yqvywvba Plate 06/12/2015 06805-Xnrqjxub Plate Each Additional 11/2015 29299-Bbsdouoa Plate Each Additional 87754- Debride <25 sq cm 07/18/2018 94569 I&D ABSCESS- SIMPLE,SINGLE 024 42603- I&D ABSCESS-COMPLICATED,MULTI 27679-DYUQ SKIN LESIONS, OVER 4 04/04/20 18 25209-ESDQ SKIN LESIONS, OVER 4 01/04/20 18 99673-ZGNQ SKIN LESIONS, OVER 4 03/01/20 17 11705-BXCH SKIN LESIONS, OVER 4 05/21/20 16 40677-HKNK SKIN LESIONS, OVER 4 06/28/19 18 23249-CPGQ SKIN LESIONS, OVER 4 10/05/19 18 31071-LSDC SKIN LESIONS, OVER 4 06/12/19 16 92618-XDYE SKIN LESIONS, OVER 4 09/04/19 16 45480-HKMX SKIN LESIONS, OVER 4 03/06/20 15 30235-ZNLH SKIN LESIONS, OVER 4 08/20/19 17 06693-JMVW SKIN LESIONS, OVER 4 11/19/19 17 71847-CHPT SKIN LESIONS, OVER 4 02/20/20 16 85322-COBQ SKIN LESIONS, OVER 4 12/04/19 16 20439-CIAK SKIN LESIONS, OVER 4 07/18/19 44354-EBNT SKIN LESIONS, OVER 4 11/08/19 75230-YIIA SKIN LESIONS, OVER 4 02/23/20 27231-MLFE SKIN LESIONS, OVER 4 05/24/20 74941-WSHB SKIN LESIONS, OVER 4 08/03/19 49671-BWBN SKIN LESIONS, OVER 4 11/02/19 45142-FZLZ SKIN LESIONS, OVER 4 02/01/20 15246-XUKR SKIN LESIONS, OVER 4 04/22/20 30960-LKIW SKIN LESIONS, OVER 4 07/15/19 59353-ZNOQ SKIN LESIONS, OVER 4 10/15/19 92597-QMJW SKIN LESIONS, OVER 4 01/14/20 22928-VRCU SKIN LESIONS, OVER 4 04/14/20 89984-YDZR SKIN LESIONS, OVER 4 08/15/19 96466-GBCM SKIN LESIONS, OVER 4 10/30/19 05582-QZLN SKIN LESIONS, OVER 4 05/11/20 02570-HXVH SKIN LESIONS, OVER 4 02/09/20 51112-YLEM SKIN LESIONS, OVER 4 11/10/19 54336-YWAU SKIN LESIONS, OVER 4 02/09/20 54591-LLXE SKIN LESIONS, OVER 4 11/10/19 07186-XSIQ SKIN LESIONS, OVER 4 08/11/19 34523-ZQUO SKIN LESIONS, OVER 4 01/22/20 17783-RPVH SKIN LESIONS, OVER 4 04/22/20 47533-CJEN SKIN LESIONS, OVER 4 11/05/19 44846-GACS SKIN LESIONS, OVER 4 07/29/19 61352-NNUF SKIN LESIONS, OVER 4 08/11/19 32377-TFWI SKIN LESIONS, OVER 4 05/10/20 45800-ZQED SKIN LESIONS, OVER 4 01/28/20 37844-Hary. Subungual Hematoma 4 45929-Qmwb. Subungual Hematoma 1 Next Appt Details Provider Name:Edy Lisa Ann , 06/04/2025 09:45:00 AM, [address] [facility], [facility] [address], [place], [address], Insurance Providers Payer Name Payer Address Payer Phone Subscriber Number Group Number Insured Name Patient Relationship to Insured Coverage Start Date Coverage End Date Medicare National [employer]t [employer] [address] [place] [address] [id number] Kevin Daly Self - patient is the insured [employer] [place] Medicare Advantage [address] [facility] [place] [address] [phone] [id number] Kevin Daly Self - patient is the insured Medical (General) History Medical History History ICD Code Back,Hip,and Knee pain type II diabetes High blood pressure Reflux Measles Mumps Chicken pox Cholesterol Surgical History Surgery Date(Month/Year) tonsillectomy rotator cuff tear repair 11/29/17 [facility] biopsy kidney 05/2019 Hospitalization History Reason Date([place] [facility] 2 [place]2022 [facility] [place] kidney [place] [facility] [facility] [place]/14/19 [facility] rotator cuff surgery left arm
--- OUTSIDE RECORDS SUMMARY | 2025-05-24 08:57 | XMS_ITS | Clinical Summary ---
Author Organization [facility] Address [address] [place] [address] Care Team Providers Care Business Account Manager Name Role Phone Renetta Rangel MD Primary Care Provider [phone] Allergies No known active allergies Medications metFORMIN [...] Description 05/25/2025 10:15 AM EST Office Visit [facility] [address] [address] Jeff Jerez MD [address] [place] [address] Health Maintenance Due Date Last Done Comments Advance Care Planning 1945 Hepatitis C Virus Screening 1945 DTaP/Tdap/Td Vaccines (1 - Tdap) 10/04/1966 Pneumococcal Vaccines 50+ (1 of 1 - PCV) 10/04/1997 Zoster (Shingles) Vaccine (1 of 2) 10/04/1997 RSV Vaccine 50 years and old er and Patients (1 - 1-dose 75+ series) 10/04/2022 Influenza Vaccine 01/05/2025 COVID-19 Vaccine (2024-2 6 season) 2025 Hepatitis B Vaccines Aged Out No long er eligible based on patient's age to complete this topic Procedures Procedure Name Priority Date/Time Associated Diagnosis Comments CREATININE WITH EGFR Routine 05/18/2025 9:30 AM EST Renal oncocytoma of right kidney Stage 3a chronic kidney disease (HCC) from Last 3 Months Results * (ABNORMAL) Creatinine with eGFR (05/18/2025 9:30 AM EST) Creatinine 1.55(H) 0.70 - 1.28 mg/dL [employer] Creatinine w/ eGFR 46(L) > OR = 60 mL/min/1.7 3m2 [employer] Blood Blood specimen / Unknown 05/18/2025 9:30 AM EST 05/18/2025 9:30 AM EST Narrative [facility] - 05/19/2025 5:15 AM EST FASTING:YES FASTING: YES Jeff Jerez MD LAB BLOOD ORDERABLES Final Result [employer] [address] [place] [address] from Last 3 Months Insurance MEDICARE PART A & B [facility] Care Teams Business Account Manager Relationship Specialty Start Date End Date Renetta Rangel MD [address] [place] [id number] PCP - General 03/08/19
[2025-05-24 10:20] LABS: MANUAL DIFF FLAG NO
[2025-05-24 10:41] LABS: Hematocrit 45.3 % (42.0-52.0); Hemoglobin 15.7 g/dl (14.0-18.0); Imm Gran Abs Auto 0.02 X10*3/uL (0.00-0.03); Imm Gran Pct Auto 0.3 % (0.0-0.4); Lymphocytes Absolute Auto 1.2 X10*3/uL (1.2-4.9); Mean Corpuscular HGB Conc 34.7 g/dl (31.0-36.0); Mean Corpuscular Hemoglobin 30.5 pg (27.0-33.0); Mean Corpuscular Volume 88.1 fL (80.0-98.0); NRBC Abs Auto 0.000 X10*3/uL (0.0-0.012); NRBC Pct Auto 0.0 /100WBC (0.0-0.2); Platelet Count 177 X10*3/uL (160-400); Red Blood Count 5.14 X10*6/uL (4.60-5.80); White Blood Count 5.8 X10*3/uL (4.8-10.8)
[2025-05-24 11:35] LABS: Alanine Aminotransferase 19 U/L (0-40); Albumin Level 4.3 g/dL (3.5-5.0); Alkaline Phosphatase 67 U/L (39-117); Anion Gap 12 (12-20); Aspartate Amino Transferase 24 U/L (5-37); Blood Urea Nitrogen 30 mg/dL (9-16); Calcium 9.2 mg/dL (8.4-10.2); Carbon Dioxide 23 mmol/L (22-29); Chloride 107 mmol/L (96-108); Estimated Glomerular Filt Rate 43; Potassium 4.1 mmol/L (3.3-5.1); Sodium 138 mmol/L (135-145); Total Protein 7.0 g/dL (6.5-8.0)
== END 2025-05-24 08:30 | disposition home or self-care (01) ==
LOC: HO.HMGCLDS 08:29
PROVIDERS: PCP Internal Medicine; Visit Provider Internal Medicine
DX: E11.9 Type 2 diabetes mellitus without complications (principal); I10 Essential (primary) hypertension
CPT/HCPCS: 36415; 80053; 83036; 85025

== ENCOUNTER 2025-05-29 11:21 | Outpatient (AMB) | payer MEDICARE, OTHER, SELFPAY ==
--- OUTSIDE RECORDS SUMMARY | 2025-05-24 05:30 | XMS_ITS ---
Author Organization [facility] Address [address] [place] [address] Care Team Providers Care Sheet Folder Name Role Phone Renetta Rangel MD Primary Care Provider Unavaila Edy Truong Unavailable [phone] Johnson Encounters Encounter Location Date Provider Diagnosis [facility] [address] 05/24/2025 Edy Ann Plan Of Treatment Next Appt Details Provider Name:Edy Ann , 06/04/2025 09:45:00 AM, [address] [place] [address], [address], [address], Progress Notes * Kevin LINDO MDOB: (79 yo M)Acc No.[id number]:05/24/2025 Progress Note Patient: Kevin PANIAGUA Provider: Nida Ann DPM :1945 A ge:79 Y S ex:Male Date:05/24/2025 Address:[address] [place] [address] Pcp:Renetta Rangel MD Subjective: * Chief Complaints: * [address] Johnson[address] * Medical History: Objective: * Vitals: Assessment: Plan: * Treatment: * Images: * The named appointment provid er may or may not be the originator of this progress note, and it is not deemed complete until electronically signed by the appointment provider. Sign off status: Pending * Provider: Nida Ann DPM Date: 07/25/2024 Generated for Tiffani Navarrete on: 07/30/2024 12:47 PM EST
--- OUTSIDE RECORDS SUMMARY | 2025-05-25 10:15 | XMS_ITS | Encounter Summary ---
Author Organization [facility] Address [address] [place] [address] Care Team Providers Care Mortgage Loan Originator Name Role Phone Renetta Rangel MD Primary Care Provider Reason for Referral * Diagnostic Imaging (Routine) - Authorized Specialty Diagnoses / Procedures Referred By Contac t Referred To Contact Diagnoses Renal oncocytoma of right kidney Stage 3a chronic kidney disease (HCC) Procedures CT Renal w w/o contrast Jeff Jerez MD [address] [place] [address] Phone: tel: fax: [facility] Referral ID Status Reason Start Date Expiration Date V isits Requested Visits Authorized [id number] Authorized 05/25/2025 05/26/2026 1 1 Reason for Visit * Reason Comments Follow-up Encounter Details Date Type Department Care Team (Late st Contact Info) Description 05/25/2025 10:15 AM EST Office Visit [facility] [address] [phone] Jeff Jerez MD [address] [place] [address] Renal oncocytoma of right kidney (Primary Dx); Stage 3a chronic kidney disease (HCC) Social History Tobacco Use Types Packs/Day Years [...] on file documented as of this encounter Last Filed Vital Signs Vital Sign Reading Time Taken Comments Blood Pressure - - Pulse - - Temperature - - Respiratory Rate - - Oxygen Saturation - - Inhaled Oxygen Concentration - - Weight 99.8 kg (220 lb) 05/25/2025 10:05 AM EST per pt Height 190.5 cm (6' 3 ) 05/25/2025 10:05 AM EST per pt Body Mass Index 27.5 05/25/2025 10:05 AM EST documented in this encounter Progress Notes * Jeff Jerez MD - 05/25/2025 10:25 AM EST Images from the original note were not included. [facility] 05/25/2025 HPI: Chandler Lindo is a 79 y.o. male who returns for follow up of right renal oncocytoma. Last seen 1 year ago. He has an upper and lower pole mass in the right kidney as well as CKD 3B. Both masses were biopsied in 2018. Pathology revealed oncocytoma. Repeat biopsies in 2021 revealed low-grade oncocytic tumors in the lower pole and midpole. . Most recent creatinine obtained on May 18, 2025 was equal to 1.55 with a clearance of 46. Stable. Follow-up imaging studies were obtained within the past few weeks at [facility] in [place]. Unfortunately studies are not available for review. They have not been read as of yet either. Theyare not in the PACS system. Patient denies any other complaints. Denies any abdominal or urinary complaints. No flank pain. No hematuria. Past Medical History: Past Medical History: Diagnosis Date Back pain Chronic kidney disease Diabetes mellitus (HCC) Hyperlipidemia Hypertension Kidney stone Past Surgical History: Procedure Laterality Date ADENIODECTOMY CT BIOPSY RENAL-RIGHT Right 06/02/2019 Procedure: CT BIOPSY RENAL-RIGHT; Surgeon: MATT Pyle; Location: [facility]; Service: Interventional Radiology; Laterality: Right; CT BIOPSY RENAL-RIGHT Right 04/20/2022 Procedure: CT BIOPSY RENAL-RIGHT; Surgeon: Esa Arriaga MD; Location: [facility]; Service: Interventional Radiology; Laterality: Right; ROTATOR CUFF REPAIR Left TONSILLECTOMY Allergies[1] Social History Socioeconomic History Marital status: Spouse name: Not on file Number of children: Not on file Years of education: Not on file Highest education level: Not on file Occupational History Not on file Tobacco Use Smoking status: Never Smokeless tobacco: Never Vaping Use Vaping status: Never Used Substance and Sexual Activity Alcohol use: Yes Alcohol/week: 1.0 standard drink of alcohol Types: 1 Standard drinks or equivalent per week Comment: occ Drug use: Never Sexual activity: Not on file Other Topics Concern Not on file Social History Narrative Not on file Social Drivers of Health Financial Resource Strain: Not on file Food Insecurity: Not on file Transportation Needs: Not on file Physical Activity: Not on file Stress: Not on file Social Connections: Not on file Housing Stability: Not on file Family History Problem Relation Age of Onset Kidney disease Father The following portions of the patient's history were reviewed and updated as appropriate: allergies, current medications, past family history, past medical history, past social history, past surgicalhistory, past breast history and problem list. Medications the Patient Reported Taking: Current Medications[2] Review of Systems: Gen: no fevers, fatigue, or recent weight change Resp: no cough, shortness of breath, or wheezing CV: no chest pain or dyspnea on exertion PHYS EXAM: Ht 1.905 m (6' 3 ) Comment: per pt Wt 99.8 kg (220 lb) Comment: per pt BMI 27.50 kg/m?? Well-nourished well-developed he is in no distress. Appears stated age. HEENT: Normocephalic. PERRLA. Mucous membranes moist Skin normal Extremities normal LABS: CREATININE: Lab Results Component Value Date CREAT 1.55 (H) 05/18/2025 No results found for: PSA ASSESSMENT: Right renal oncocytoma x 3. CKD 3A/B stable. PLAN: We will have his films reviewed and get back to him with regard to the report. Will plan on seeing him in 1 year with follow-up imaging studies with and without IV contrast. We will see him sooner if he is having any problems. Jeff Jerez 05/25/2025 10:25 AM [1] No Known Allergies [2] Current Outpatient Medications: amLODIPine (NORVASC) 10 MG tablet, Take 1 tablet (10 mg total) by mouth daily., Disp: , Rfl: aspirin enteric coated (ECOTRIN LOW STRENGTH) 81 MG EC tablet, Take 1 tablet (81 mg total) by mouthdaily., Disp: , Rfl: atorvastatin (LIPITOR) 20 MG tablet, Take 1 tablet (20 mg total) by mouth daily., Disp: , Rfl: dapagliflozin 10 MG tablet, Take by mouth., Disp: , Rfl: dapagliflozin 10 MG tablet, Take by mouth every morning., Disp: , Rfl: dapagliflozin 5 mg tablet, Take 1 tablet (5 mg total) by mouth., Disp: , Rfl: gabapentin (NEURONTIN) 100 MG capsule, 1 capsule (100 mg total) 3 (three) times a day., Disp: , Rfl: glipiZIDE (GLUCOTROL XL) 2.5 MG 24 hr tablet, Take 1 tablet (2.5 mg total) by mouth every morning with breakfast., Disp: , Rfl: lisinopril (PRINIVIL,ZeSTRIL) 10 MG tablet, Take 1 tablet (10 mg total) by mouth daily., Disp: , Rfl: metFORMIN (GLUCOPHAGE) 500 MG tablet, Take 1 tablet (500 mg total) by mouth once., Disp: , Rfl: Mounjaro 2.5 MG/0.5ML pen-injector, , Disp: , Rfl: OMEprazole (PriLOSEC) 20 MG capsule, Take 1 capsule (20 mg total) by mouth every morning before breakfast., Disp: , Rfl: simvastatin (ZOCOR) 20 MG tablet, Take 1 tablet (20 mg total) by mouth nightly., Disp: , Rfl: documented in this encounter Plan of Treatment Upcoming Encounters Date Type Department Care Team (Late st Contact Info) Description 05/24/2026 11:45 AM EST Office Visit [facility] [address] [phone] Jeff Jerez MD [address] [place] [address] Scheduled Orders Name Type Priority Associated Diagnoses Orde r Schedule Creatinine with eGFR Lab Routine Renal oncocytoma of right kidney Stage 3a chronic kidney disease (HCC) Expected: 05/25/2025 (Approximate), Expires: 05/25/2026 CT Renal w w/o contrast Imaging Routine Renal oncocytoma of right kidney Stage 3a chronic kidney disease (HCC) Expected: 05/25/2025 (Approximate), Expires: 05/25/2026 documented as of this encounter Procedures Procedure Name Priority Date/Time Associated Diagnosis Comments POCT URINALYSIS DIPSTICK, AUTOMATED Routine 05/25/2025 10:13 AM EST Renal oncocytoma of right kidney Stage 3a chronic kidney disease (HCC) documented in this encounter Results * (ABNORMAL) POCT Urinalysis Dipstick, Automated (05/25/2025 10:13 AM EST) Source, UA Voided Color, UA Yellow Yellow & Clear, Yellow Clarity, UA Clear Clear Glucose, UA 2,000 or more (2)(A) Negative Bilirubin, UA Negative Negative Ketones, UA Negative Negative Spec Grav, UA 1.010 1.005, 1.010, 1.015, 1.020, 1.025 Blood, UA Negative Negative pH, UA 5.5 5.0, 5.5, 6.0, 6.5, 7.0, 7.5, 8.0 Protein, UA Negative Negative Urobilinogen, UA 0.2 0.2, 1.0 Nitrite, UA Negative Negative Leukocyte Esterase, UA Negative Negative Lot Number [id number] [employer] Urine 05/25/2025 10:1 3 AM EST us Jeff Jerez MD POINT OF CARE TEST ORDERABL ES Final Result documented in this encounter Visit Diagnoses Diagnosis Renal oncocytoma of right kidney- Primary Stage 3a chronic kidney disease (HCC) documented in this encounter Care Teams Mortgage Loan Originator Relationship Specialty Start Date End Date Renetta Rangel MD [address] [place] [address] PCP - General 03/08/19 documented as of this encounter
[2025-05-29 11:26] VITALS: BP 120/60; PULSE 74; RESP 16; TEMP 36.3; O2SAT 97; BMI 27.1
--- NOTE | 2025-05-29 11:26 | MHC.PC.OV ---
Vital Signs 05/29/25 11:26 Height 6 ft 3 in Weight 217 lb BMI 27.1 BP 120/60 Blood Pressure Location Lt brachial Position Sitting Respiration 16 Pulse 74 Pulse Source Pulse Oximeter Temp 97.3 F Temp Source Oral Pulse Oximetry (%) 97 Oxygen Delivery Method Room Air Intake Visit Reasons: 1 month f/up Supervisor [employer] Required: No Accompanied by: Self / Same As Patient Allergies No Known Allergies (No Known Allergies*) Allergy (Verified 05/29/25 11:28) Medication List - Last Reconciled 05/29/25 by Renetta Rangel MD amlodipine 10 mg PO DAILY atorvastatin 20 mg PO DAILY blood sugar diagnostic (Accu-Chek Maris Plus test strips) use one strip once a day to test blood sugar dapagliflozin propanediol (Farxiga) 10 mg PO DAILY flu vac 2020 65up-eajWV68K(PF) 60 mcg (15 mcg x 4)/0.5 mL mL IM lancets (Accu-Chek Fastclix Lancet Drum) use to test blood sugar once a day lisinopril 10 mg PO DAILY metformin 500 mg PO BID miscellaneous medical supply diabetic shoes as directed QD; Mounjaro (tirzepatide) 2.5 mg (0.5 mL) subcut QWEEK NS omeprazole 20 mg PO DAILY pneumoc 13-yogesh conj-dip cr(PF) mL IM Tobacco use date assessed: 05/29/25 Dental Screening Dental Screen Date: 07/11/24 HPI 1 month f/up HPI Details Patient presents for the follow-up of type 2 diabetes hypertension hyperlipidemia chronic kidney disease stage 3. Patient reports improving fasting blood glucose readings between 85-110. He has improved his diet. [facility] Medical History Annual physical exam Pneumonia Lumbar disc disease Renal mass CKD (chronic kidney disease) stage 3, GFR 30-59 ml/min Overweight Hyperlipidemia HTN (hypertension) Type 2 diabetes mellitus Surgical History H/O colonoscopy Family History Father MVA (motor vehicle accident) Mother Heart failure Social History (Reviewed 05/29/25 @ 11:31 by SERENA Bowen Housing: House Alcohol intake: current Alcohol intake frequency: a few times a week Patient Tobacco Use Status: Never used Tobacco e-Cigarette/Vaping Use: Never Used service: Yes Current occupational status: retired Cognitive needs: No Hearing needs: Yes Vision needs: Yes Questionnaire PHQ-9 Over the last 2 weeks, how often have you been bothered by any of the following problems? 1. Little interest or pleasure in doing things: not at all 2. Feeling down, depressed, or hopeless: not at all 3. Trouble falling or staying asleep, or sleeping too much: not at all 4. Feeling tired or having little energy: not at all 5. Poor appetite or overeating: not at all 6. Feeling bad about yourself - or that you are a failure or have let yourself or your family down: not at all 7. Trouble concentrating on things, such as reading the newspaper or watching television: not at all 8. Moving or speaking so slowly that other people could have noticed. Or the opposite - being so fidgety or restless that you have been moving around a lot more than usual: not at all 9. Thoughts that you would be better off or of hurting yourself in some way: not at all Total score: 0 Depression Screening Interpretation: Negative Depression Screening Done: Yes 93041 - PHQ-9 Billing: Yes Source: Developed by Drs. Nain Goss, Ramya Rudolph, Edgard Langston and colleagues, with an educational cornell from [employer]. Thrive Questionnaire Date Thrive assessed: 07/04/24 I am a: Patient What is your living situation today?: I have a steady place to live Within the past 12 months, did the food you bought not last and you didn't have the money to get more?: Never true Within the past 12 months, did you worry whether your food would run out before you got money to buy more?: Never true Do you have trouble paying for medicines?: No Do you have trouble getting transportation to medical appointments?: No Do you have trouble paying your heating and electricity bill?: No Do you have trouble taking care of your child, family member or friend?: No Do you have trouble with day-to-day activities such as bathing, preparing meals, shopping, managing finances, etc.?: No Are you currently unemployed and looking for a job?: No Are you interested in more education?: No Currently or been in a relationship where the following occur: No concerns reported THRIVE Score: 0 ARAM-7 AMB Questionnaire ARAM-7 Date ARAM - 7 assessed: 07/11/24 Source: Developed by Drs. Nain Goss, Ramya Rudolph, Edgard Langston and colleagues, with an educational cornell from [employer]. Review of Systems Const All systems reviewed & are unremarkable except as noted in HPI and below ENT Reports no additional complaints Card Reports no additional complaints Resp Reports no additional complaints GI Reports no additional complaints Reports no additional complaints Physical exam (Primary Care) Vital Signs: Last Vital Signs Temp 97.3 F 05/29/25 11:26 Pulse 74 05/29/25 11:26 Resp 16 05/29/25 11:26 BP 120/60 05/29/25 11:26 Pulse Ox 97 05/29/25 11:26 Oxygen Delivery Method Room Air 05/29/25 11:26 BMI result Body Mass Index 27.1 Tobacco/Smoking Status: Tobacco use Status Tobacco use date assessed 05/29/25 05/29/25 11:31 Patient Tobacco Use Status Never used Tobacco 05/29/25 11:31 e-Cigarette/Vaping Use Never Used 05/29/25 11:31 PHQ-9: PHQ-9 Score PHQ-9: Total score 0 05/29/25 11:31 Depression Screening Interpretation: Negative Thrive Assessment: Date of Thrive Assessment Date Thrive assessed 07/04/24 05/29/25 11:31 Currently or been in a relationship where the following occur: No concerns reported Const General: no acute distress HENMT Head: Yes normal to inspection Resp Effort & Inspection: normal respiratory effort Auscultation: clear to auscultation bilaterally Cardio Rhythm: regular rhythm Heart sounds: S1 normal heart sound present and S2 normal heart sound present GI Inspection: Yes normal to inspection Palpation (GI): Soft to palpation Percussion: Yes normal to percussion Auscultation: normal bowel sounds Coding Level of Care Code Est Pt Level 4 (41850) Diagnoses HTN (hypertension) I10 Diabetes mellitus E11.9 CKD (chronic kidney disease) stage 3, GFR 30-59 ml/min N18.30 Chronic kidney disease stage 3 subtype: unspecified whether 3a or 3b Additional Codes PHQ-9 - 37129 - PHQ-9 Billing: Yes ([id number]) Assessment & Plan Assessment & Plan (1) HTN (hypertension): Comment: BP < 130/80 Code(s): I10 - Essential (primary) hypertension Category: Medical Plan: cont meds (2) Diabetes mellitus: Code(s): E11.9 - Type 2 diabetes mellitus without complications Category: Medical Plan: A1c is down to 6.0. ADA diet increase physical activity discussed with the patient he will continue same medications follow-up in 3 months with fasting labs before (3) CKD (chronic kidney disease) stage 3, GFR 30-59 ml/min: Comment: Follow-up with nephrology Code(s): N18.30 - Chronic kidney disease, stage 3 unspecified Category: Medical Qualifiers: Chronic kidney disease stage 3 subtype: unspecified whether 3a or 3b Qualified Code(s): N18.30 - Chronic kidney disease, stage 3 unspecified Plan: Avoid nephrotoxins and monitor renal function Orders: Orders Microalbumin, Random (w Creat) 3 Months E11.9 - Type 2 diabetes mellitus without complications, I10 - Essential (primary) hypertension, N18.30 - Chronic kidney disease, stage 3 unspecified Comprehensive [place]. Panel Fast 3 Months E11.9 - Type 2 diabetes mellitus without complications, I10 - Essential (primary) hypertension, N18.30 - Chronic kidney disease, stage 3 unspecified Hemoglobin A1c 3 Months E11.9 - Type 2 diabetes mellitus without complications, I10 - Essential (primary) hypertension, N18.30 - Chronic kidney disease, stage 3 unspecified Complete Blood Count Auto Diff 3 Months E11.9 - Type 2 diabetes mellitus without complications, I10 - Essential (primary) hypertension, N18.30 - Chronic kidney disease, stage 3 unspecified Lipid Panel 3 Months E11.9 - Type 2 diabetes mellitus without complications, I10 - Essential (primary) hypertension, N18.30 - Chronic kidney disease, stage 3 unspecified Medications: Refilled Mounjaro (tirzepatide) 2.5 mg (0.5 mL) subcut QWEEK 2 mL 3RF NS
--- OUTSIDE RECORDS SUMMARY | 2025-05-29 12:48 | XMS_ITS | Clinical Summary ---
Author Organization [facility] Address [address] [place] [address] Phone Care Team Providers Care Engineering Illustrator Name Role Phone Renetta Rangel MD Primary Care Provider [phone] Allergies No known active allergies Medications amLODIPine [...] age to complete this topic Insurance Medicare [facility] Medicare [facility] Care Teams Engineering Illustrator Relationship Specialty Start Date End Date Renetta Rangel MD [address] [place] [address] PCP - General Internal Medicine 07/17/20
--- OUTSIDE RECORDS SUMMARY | 2025-05-29 12:48 | XMS_ITS | Encounter Summary ---
Author Organization [facility] Address [address] [place] [address] Care Team Providers Care Corporate Health Consultant Name Role Phone Renetta Rangel MD Primary Care Provider [phone] Encounter Details Date Type Department Care Team (Late st Contact Info) Description 03/09/2019 Scanned Document [facility] Urologic Surgery [address] [place] [phone] Provider, MD Sun [address] [place] [address] Social History Tobacco Use Types Packs/Day Years [...] Description 05/24/2026 11:45 AM EST Office Visit [facility] [place] [address] Jeff Jerze MD [address] [address] documented as of this encounter Visit Diagnoses Not on filedocumented in this encounter Care Teams Corporate Health Consultant Relationship Specialty Start Date End Date Renetta Rangel MD [address] [place] [address] PCP - General 03/08/19 documented as of this encounter
--- OUTSIDE RECORDS SUMMARY | 2025-05-29 12:48 | XMS_ITS | Patient Health Record ---
Author Organization [facility] Address [address] [place] [address] Care Team Providers Care Shop Teacher Name Role Phone Renetta Rangel MD Primary Care Provider Edy Fonseca Unavailable [phone] Allergies Allergen (clinical drug ingredient) Drug/Non Drug [...] Active Lisinopril 10 MG (Prior Auth: Rx Ref#:[id number]) Oral; Duration: 90 Active metFORMIN HCl 500 MG 1 tablet with meals Orally Twice a day Active Doxycycline Hyclate Not-Taking Allergy Relief Activ e Gabapentin Not-Takin g Simvastatin 20 MG (Prior Auth: Rx Ref#:[id number]) Oral; Duration: 90 Not-Taking Atorvastatin Calcium Active [...] Problem Acquired hammer toe of right foot (0619619086979736 ) Other hammer toe(s) (acquired), right foot (M20.41) Active confirmed Response to treatment, Improvemen t Problem Acquired hammer toe of left foot (8623467217308632 ) Other hammer toe(s) (acquired), left foot (M20.42) Active confirmed Response to treatment, Improvemen t Problem Polyneuropathy due to type 2 diabetes mellitus (572378463) Type 2 diabetes mellitus with diabetic polyneuropathy (E11.42) Active confirmed Vital Signs Blood pressure diastolic 65 mm Hg 02/08/2025 Height 6ft 3in in 02/08/2025 Blood pressure systolic 130 mm Hg 02/08/2025 Weight 220 lbs 02/08/2025 BMI 27.5 kg/m2 02/08/2025 Procedures Procedure Date Ordered Date Performed Result Body Sit e 60366-KWEQWIJ NAIL, 6 OR MORE 08/10/2024 N/A 79478-Anpndojp Plate 08/10/2024 N/A 24431-BBZA SKIN LESIONS, OVER 4 08/10/2024 N/A 61940-HCIIXYT NAIL, 6 OR MORE 11/09/2024 N/A 65143-WLMG SKIN LESIONS, OVER 4 11/09/2024 N/A 61070-USNLGCS NAIL, 6 OR MORE 02/08/2025 N/A 23953-Jrrxaola Plate 02/08/2025 N/A 32320-UGDE SKIN LESIONS, OVER 4 02/08/2025 N/A Encounters Encounter Location Date Provider Diagnosis [address] [address] 08/10/2024 Edy Ann Type 2 diabetes mellitus with diabetic polyneuropathy E11.42 ; Tinea unguium B35.1 and Ingrown nail L60.[address] [address] 11/09/2024 Edy Ann Type 2 diabetes mellitus with diabetic polyneuropathy E11.42 ; Tinea unguium B35.1 and Subungual hematoma of right foot, initial encounter S90.221A [address] [address] 02/08/2025 Edy Whaleyunier Type 2 diabetes mellitus [...] Test Name Order Date Hemoglobin A1c 03/06/2015 18735-KOFHPUY NAIL, 6 OR MORE 03/06/2015 03482-JVMTWMM NAIL, 6 OR MORE 06/12/2015 92826-HGNBBWP NAIL, 6 OR MORE 09/04/2015 46839-WQROKEJ NAIL, 6 OR MORE 12/04/2015 26542-VBPUTBE NAIL, 6 OR MORE 02/20/2016 62590-VEOPRWV NAIL, 6 OR MORE 08/19/2016 47590-LOCHIQW NAIL, 6 OR MORE 05/21/2016 11429-ZAAIDOP NAIL, 6 OR MORE 11/18/2016 40114-UHMJBQK NAIL, 6 OR MORE 03/01/2017 09876-LXPTLFG NAIL, 6 OR MORE 06/28/2017 20151-SMGCRLB NAIL, 6 OR MORE 10/04/2017 33009-FXEWUZF NAIL, 6 OR MORE 01/03/2018 60877-JZGEDSP NAIL, 6 OR MORE 04/04/2018 84064-QEGWHMU NAIL, 6 OR MORE 07/18/2018 43202-LAYHGRL NAIL, 6 OR MORE 11/07/2018 02396-XPMIPGZ NAIL, 6 OR MORE 02/22/2019 64069-VYIFJHR NAIL, 6 OR MORE 05/24/2019 56528-RWLRGGT NAIL, 6 OR MORE 08/03/2019 78072-MXWHJEF NAIL, 6 OR MORE 11/02/2019 99927-NHMDHDE NAIL, 6 OR MORE 02/01/2020 81791-QWRGARR NAIL, 6 OR MORE 04/22/2020 02928-RGRNGBG NAIL, 6 OR MORE 07/15/2020 08869-WVAUYEK NAIL, 6 OR MORE 10/14/2020 70023-ZJGAUQG NAIL, 6 OR MORE 01/13/2021 67596-BQAIXMD NAIL, 6 OR MORE 04/14/2021 22184-DMIVRCB NAIL, 6 OR MORE 08/14/2021 26590-EHPAUGQ NAIL, 6 OR MORE 10/29/2021 18721-PREUJOU NAIL, 6 OR MORE 01/21/2022 47556-VPKYUSV NAIL, 6 OR MORE 04/22/2022 37247-AUOOBUD NAIL, 6 OR MORE 07/29/2022 51159-LBHCSAX NAIL, 6 OR MORE 11/04/2022 10085-IPHCEPG NAIL, 6 OR MORE 01/27/2023 02395-DASFOBX NAIL, 6 OR MORE 05/10/2023 74922-DLECEGR NAIL, 6 OR MORE 08/11/2023 88893-CUYHPZD NAIL, 6 OR MORE 11/10/2023 31273-ADCMDLH NAIL, 6 OR MORE 02/09/2024 43888-RMDYKFP NAIL, 6 OR MORE 05/11/2024 58761-NYQWJCN NAIL, 6 OR MORE 08/10/2024 91810-LFHDYUN NAIL, 6 OR MORE 11/09/2024 53288-WRMPCUY NAIL, 6 OR MORE 02/08/2025 34554-Ehkkqecn Plate 08/10/2024 30534-Fpelwrss Plate 02/08/2025 03725-Qgccjtrm Plate 02/09/2024 91650-Uimgzbkj Plate 08/11/2023 15336-Rxclongv Plate 07/29/2022 65950-Rphmqzvl Plate 05/10/2023 88650-Fhqkccun Plate 11/04/2022 55606-Vegntbnz Plate 01/21/2022 62643-Mekaawlm Plate 10/29/2021 84504-Nmypagtm Plate 08/14/2021 91763-Plqgihjm Plate 04/14/2021 57744-Tfzgjhls Plate 01/13/2021 14751-Onidwlet Plate 10/14/2020 69337-Xfztsryl Plate 07/15/2020 20265-Pxpxdbfi Plate 04/22/2020 40894-Feyiosun Plate 02/01/2020 81604-Puolcgxd Plate 11/02/2019 23274-Lswfcrfw Plate 08/03/2019 38239-Nxsfzhyy Plate 05/24/2019 85921-Lfvleepw Plate 02/22/2019 71414-Hhekctms Plate 11/07/2018 07905-Pruvdsea Plate 07/18/2018 05592-Blqfrrtq Plate 04/04/2018 73956-Kpqpgrcu Plate 01/03/2018 12763-Ylqmvvhb Plate 10/04/2017 55077-Dcupawlt Plate 06/28/2017 66787-Akdlzxbs Plate 03/01/2017 23584-Cgtuqlow Plate 08/19/2016 06875-Khskvmrs Plate 06/12/2015 44795-Gczpwtdp Plate Each Additional 11/2015 79236-Mfxuvige Plate Each Additional 45548- Debride <25 sq cm 07/18/2018 21373 I&D ABSCESS- SIMPLE,SINGLE 024 01635- I&D ABSCESS-COMPLICATED,MULTI 49470-AXOH SKIN LESIONS, OVER 4 04/04/20 18 34669-GJWJ SKIN LESIONS, OVER 4 01/04/20 18 15804-NDIF SKIN LESIONS, OVER 4 03/01/20 17 63016-ZLJR SKIN LESIONS, OVER 4 05/21/20 16 22524-NHDC SKIN LESIONS, OVER 4 06/28/19 18 22274-BYZQ SKIN LESIONS, OVER 4 10/05/19 18 94218-STAH SKIN LESIONS, OVER 4 06/12/19 16 91514-JRNN SKIN LESIONS, OVER 4 09/04/19 16 05844-PARN SKIN LESIONS, OVER 4 03/06/20 15 74213-AJAX SKIN LESIONS, OVER 4 08/20/19 17 83271-RNHJ SKIN LESIONS, OVER 4 11/19/19 17 11515-IATN SKIN LESIONS, OVER 4 02/20/20 16 75700-EOAO SKIN LESIONS, OVER 4 12/04/19 16 78544-IWEZ SKIN LESIONS, OVER 4 07/18/19 13379-DQLW SKIN LESIONS, OVER 4 11/08/19 34131-JSRO SKIN LESIONS, OVER 4 02/23/20 10183-IXGH SKIN LESIONS, OVER 4 05/24/20 48005-VEAI SKIN LESIONS, OVER 4 08/03/19 33664-VHDE SKIN LESIONS, OVER 4 11/02/19 77366-RZHN SKIN LESIONS, OVER 4 02/01/20 43527-ASHH SKIN LESIONS, OVER 4 04/22/20 67962-ZPWK SKIN LESIONS, OVER 4 07/15/19 75065-SDFA SKIN LESIONS, OVER 4 10/15/19 98373-MEAU SKIN LESIONS, OVER 4 01/14/20 79035-XDZT SKIN LESIONS, OVER 4 04/14/20 60601-QIVS SKIN LESIONS, OVER 4 08/15/19 50372-KSPE SKIN LESIONS, OVER 4 10/30/19 19470-EKCE SKIN LESIONS, OVER 4 05/11/20 06441-CPDE SKIN LESIONS, OVER 4 02/09/20 03942-PJWP SKIN LESIONS, OVER 4 11/10/19 87716-WQOW SKIN LESIONS, OVER 4 02/09/20 83099-RIZJ SKIN LESIONS, OVER 4 11/10/19 90480-FLUK SKIN LESIONS, OVER 4 08/11/19 46735-AVGU SKIN LESIONS, OVER 4 01/22/20 46795-RESA SKIN LESIONS, OVER 4 04/22/20 75829-WECW SKIN LESIONS, OVER 4 11/05/19 78770-HCKN SKIN LESIONS, OVER 4 07/29/19 00725-NONO SKIN LESIONS, OVER 4 08/11/19 29540-HTDV SKIN LESIONS, OVER 4 05/10/20 09091-KNVK SKIN LESIONS, OVER 4 01/28/20 17085-Okme. Subungual Hematoma 4 33040-Niak. Subungual Hematoma 1 Next Appt Details Provider Name:Edy Lisa Ann , 06/04/2025 09:45:00 AM, [address] [facility], [facility] [address], [place], [address], Insurance Providers Payer Name Payer Address Payer Phone Subscriber Number Group Number Insured Name Patient Relationship to Insured Coverage Start Date Coverage End Date Medicare National [employer] [address] [place] [address] [id number] Kevin Daly Self - patient is the insured [employer] [place] Medicare Advantage [address] [facility] [place] [address] [id number] Kevin Daly Self - patient is the insured Medical (General) History Medical History History ICD Code Back,Hip,and Knee pain type II diabetes High blood pressure Reflux Measles Mumps Chicken pox Cholesterol Surgical History Surgery Date(Month/Year) tonsillectomy rotator cuff tear repair 11/29/17 [facility] biopsy kidney 05/2019 Hospitalization History Reason Date(Month/Year) [facility] heart [place], 2 days 09/2022 [facility] biopsy kidney 04/20/22 [facility] pneumonia 09/2020 [facility] Kidney stone 01/14/19 [facility] rotator cuff surgery left arm
--- OUTSIDE RECORDS SUMMARY | 2025-05-29 12:48 | XMS_ITS | Clinical Summary ---
Author Organization [facility] Address [address] [place] [address] Care Team Providers Care Executive Officer Name Role Phone Renetta Rangel MD Primary Care Provider [phone] Allergies No known active allergies Medications metFORMIN [...] tablet Take by mouth every morning. 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 Renal mass 04/21/2019 CKD (chronic kidney disease), stage III 04/21/20 Calculus of ureter 04/21/2019 Encounters Date Type Department Care Team Description 05/25/2025 10:15 AM EST Office Visit [facility] [address] [place] [address] Jeff Jerez MD Renal oncocytoma of right kidney (Primary Dx); Stage 3a chronic kidney disease (HCC) from Last 3 Months Family History Medical [...] EST Inhaled Oxygen Concentration - - Weight 99.8 kg (220 lb) 05/25/2025 10:05 AM EST per pt Height 190.5 cm (6' 3 ) 05/25/2025 10:05 AM EST per pt Body Mass Index 27.5 05/25/2025 10:05 AM EST Plan of Treatment Upcoming Encounters Date Type Department Care Team (Late st Contact Info) Description 05/24/2026 11:45 AM EST Office Visit [facility] Urology [address] [place] [address] Jeff Jerez MD [address] [place] [address] Health Maintenance Due Date Last Done Comments Advance Care Planning 1945 Hepatitis C Virus Screening 1945 DTaP/Tdap/Td Vaccines (1 - Tdap) 10/04/1966 Pneumococcal Vaccines 50+ (1 of 1 - PCV) 10/04/1997 Zoster (Shingles) Vaccine (1 of 2) 10/04/1997 RSV Vaccine 50 years and older and Patients (1 - 1-dose 75+ series) 10/04/2022 COVID-19 Vaccine ( season) 2025 03/12/2023, 03/16/2022, 09/18/2021, Additional history exists Influenza Vaccine Completed 02/07/2025, , 01/24/2024, Additional history exists Hepatitis B Vaccines Aged Out No long er eligible based on patient's age to complete this topic Procedures Procedure Name Priority Date/Time Associated Diagnosis Comments POCT URINALYSIS DIPSTICK, AUTOMATED Routine 05/25/2025 10:13 AM EST Renal oncocytoma of right kidney Stage 3a chronic kidney disease (HCC) CREATININE WITH EGFR Routine 05/18/2025 9:30 AM EST Renal oncocytoma of right kidney Stage 3a chronic kidney disease (HCC) from Last 3 Months Results * (ABNORMAL) POCT Urinalysis Dipstick, Automated [...] Leukocyte Esterase, UA Negative Negative Lot Number [id number] [employer] [place] Urine 05/25/2025 10:1 3 AM EST Jeff Jerez MD POINT OF CARE TEST ORDERABL ES Final Result * (ABNORMAL) Creatinine with eGFR (05/18/2025 9:30 AM EST) Creatinine 1.55(H) 0.70 - 1.28 mg/dL [employer] Creatinine w/ eGFR 46(L) > OR = 60 mL/min/1.7 3m2 [employer] Blood Blood specimen / Unknown 05/18/2025 9:30 AM EST 05/18/2025 9:30 AM EST Narrative [facility] - 05/19/2025 5:15 AM EST FASTING:YES FASTING: YES Jeff Jerez MD LAB BLOOD ORDERABLES Final Result [employer] [address] [place] [phone] from Last 3 Months Insurance MEDICARE PART A & B [facility] Care Teams Executive Officer Relationship Specialty Start Date End Date Renetta Rangel MD [address] [place] [address] PCP - General 03/08/19
--- OUTSIDE RECORDS SUMMARY | 2025-05-29 12:48 | XMS_ITS | Encounter Summary ---
Author Organization [facility] Address [address] [place] [address] Care Team Providers Care Tumbling Barrel Painter Name Role Phone Renetta Rangel MD Primary Care Provider [phone] Encounter Details Date Type Department Care Team (Late st Contact Info) Description 03/09/2019 Scanned Document [facility] Urolog[facility] Surgery [address] [place] [phone] Provider, MD Sun [address] [place] [address] Social History Tobacco Use Types Packs/Day Years [...] Description 05/24/2026 11:45 AM EST Office Visit [facility] Urology [facility] [place] [phone] Jeff Jerez MD [address] [address] documented as of this encounter Visit Diagnoses Not on filedocumented in this encounter Care Teams Tumbling Barrel Painter Relationship Specialty Start Date End Date Renetta Rangel MD [address] [place] [address] PCP - General 03/08/19 documented as of this encounter
--- OUTSIDE RECORDS SUMMARY | 2025-05-29 12:48 | XMS_ITS | Encounter Summary ---
Author Organization [facility] Address [address] [place] [address] Care Team Providers Care Filling And Packing Supervisor Name Role Phone Renetta Rangel MD Primary Care Provider [phone] Encounter Details Date Type Department Care Team (Late st Contact Info) Description 03/09/2019 Scanned Document [facility] Urologic Surgery [address] [place] [phone] Provider, MD Sun [address] [place] [address] Social History Tobacco Use Types Packs/Day Years [...] Description 05/24/2026 11:45 AM EST Office Visit [facility] Urology [address] [place] [phone] Jeff Jerez MD [address] [address] documented as of this encounter Visit Diagnoses Not on filedocumented in this encounter Care Teams Filling And Packing Supervisor Relationship Specialty Start Date End Date Renetta Rangel MD [address] [place] [address] PCP - General 03/08/19 documented as of this encounter
== END 2025-05-29 11:58 | disposition home or self-care (01) ==
LOC: HO.HMCC 11:22
PROVIDERS: PCP Internal Medicine; Visit Provider Internal Medicine
DX: I10 Essential (primary) hypertension (principal); E11.9 Type 2 diabetes mellitus without complications; N18.30 Chronic kidney disease, stage 3 unspecified

== ENCOUNTER → 2025-05-29 11:21 | Outpatient (BNVA) | payer MEDICARE, OTHER, SELFPAY | PROVIDERS: PCP Internal Medicine; Visit Provider Internal Medicine | DX: I10 Essential (primary) hypertension (principal); N18.30 Chronic kidney disease, stage 3 unspecified; E11.9 Type 2 diabetes mellitus without complications; Z13.31 Encounter for screening for depression; Z79.899 Other long term (current) drug therapy | CPT/HCPCS: 96127; 99212 ==